=== PATIENT | female | born 1955 | race Caucasian/White ===

== ENCOUNTER 2016-06-25 12:57 | Emergency (ER) | payer OTHER ==
[2016-06-25 13:06] VITALS: RESP 18
[2016-06-25 14:16] LABS: % IMMATURE GRANULYOCYTES 0.4 % (0.0-1.1); ABSOLUTE IMMATURE GRANULOCYTES 0.04 10^3/uL (0.00-0.10); ADD DIFF? NO; ADD MORPH? YES; ADD SCAN? NO; ATYPICAL LYMPHOCYTE FLAG 10 (0-99); FRAGMENT RBC FLAG 40 (0-99); HEMATOCRIT 38.7 % (38.0-47.0); HEMOGLOBIN 11.8 g/dL (12.6-16.3); LEFT SHIFT FLG 0 (0-99); LIPEMIA HEMOLYSIS FLAG 80 (0-99); MEAN CELL HEMOGLOBIN 22.5 pg (27.9-34.1); MEAN CELL HEMOGLOBIN CONCENTR. 30.5 g/dL (32.4-36.7); MEAN CELL VOLUME 73.9 fL (81.5-99.8); MEAN PLATELET VOLUME 10.9 fL (8.7-11.7); PLATELET CLUMPS FLAG 0 (0-99); PLATELET COUNT 547 10^3/uL (150-400); RED BLOOD CELL COUNT 5.24 10^6/uL (4.18-5.33)
[2016-06-25 14:24] LABS: RED CELL DISTRIBUTION WIDTH 20.6 % (11.5-15.2)
[2016-06-25 14:44] LABS: ANION GAP 14 mEq/L (8-16); CALCIUM 9.5 mg/dL (8.5-10.4); CARBON DIOXIDE 22 mEq/l (22-31); CHLORIDE 104 mEq/L (97-110); CREATININE 0.7 mg/dL (0.6-1.0); GLOMERULAR FILTRATION RATE > 60; GLUCOSE 93 mg/dL (70-100); POTASSIUM 4.2 mEq/L (3.5-5.2); SODIUM 140 mEq/L (134-144)
[2016-06-25 14:50] LABS: PLATELET ESTIMATE INCREASED (ADEQ)
[2016-06-25 14:51] LABS: HYPOCHROMIA 2+; MICROCYTES 2+
--- NOTE | 2016-06-25 14:51 | EDPHY ---
H & P Stated Complaint: anemia hgb 9.6 hct 32.5 abd cramping Time Seen by Provider: 06/25/16 14:00 HPI/ROS: Chief Complaint: Weakness, anemia HPI: 61-year-old woman who is presenting complaining of concerns about anemia and fatigue. Patient states that she has been suffering from shingles for the last couple weeks after having oral surgery and dental implants performed. Patient states that she developed shingles after the surgery. She has gone through a course of antivirals for this and does seem to be improving. She also states that because of her recent oral surgery for the last several weeks she has not been eating or drinking food or fluids normally. She has had some generalized weakness and fatigue. She is has a history of a urine half ago and was noted to have anemia and had a abdominal bleed prior to having a colonoscopy as she is concerned that she might be having bleeding now. Patient presented to her primary care physician last week and had blood work done was noted to have a hemoglobin of 9.6. She spoke with her primary care physician's office today and was told to present to the emergency department for further evaluation. She did have a stool culture test done at that time which was negative. She denies any melena or hematochezia. No fevers or chills. No nausea or vomiting. No falls or syncope. No chest pain or shortness of breath. ROS: 10 point Review of Systems is negative except as noted in the HPI. PMH: Hypothyroidism Medications: Synthroid Allergies: No known drug allergies Social History: No smoking, no alcohol, no recreational drug use Family History: non-contributory Physical Exam: Gen: Awake, Alert, No Distress HEENT: healing shingles rash on the right face, eyes normal Nose: no rhinorrhea Eyes: PERRLA, EOMI Mouth: Moist mucosa Neck: Supple, no JVD Chest: nontender, lungs clear to auscultation Heart: S1, S2 normal, no murmur Abd: Soft, non-tender, no guarding Back: no CVA tenderness, no midline tenderness Ext: no edema, non-tender Skin: no rash Neuro: CN II-XII intact, Sensation grossly intact, Strength 5/5 in bilateral upper and lower extremities - Personal History Current Tetanus/Diphtheria Vaccine: No Tetanus Vaccine Date: 5 YEARS HOOP BENDER TANK - Medical/Surgical History Hx Asthma: No Hx Chronic Respiratory Disease: No Hx Diabetes: No Hx Cardiac Disease: No Hx Renal Disease: No Hx Cirrhosis: No Hx Alcoholism: No Hx HIV/AIDS: No Hx Splenectomy or Spleen Trauma: No Other PMH: VAGINAL HERPES, BREAST IMPLANTS, DENTAL SURGERY, TMJ,COLON SURGERY, CHRONIC PAIN, SBO, MIGRAINES, FIBRYOMALGIA, VERTIGO, ARTHRITIS NECK, AND LEFT KNEE, SIATIC NERVE PAIN, CLUSTER HEADACHES - Social History Smoking Status: Never smoked Constitutional: Initial Vital Signs Temperature (C) 37 C 06/25/16 13:01 Heart Rate 99 06/25/16 13:01 Respiratory Rate 18 06/25/16 13:01 Blood Pressure 149/101 H 06/25/16 13:01 O2 Sat (%) 96 06/25/16 13:01 O2 Delivery Mode Room Air Allergies/Adverse Reactions: No Known Allergies Allergy (Verified 06/25/16 12:59) Home Medications: Medication Instructions Recorded FLUoxetine [Prozac 20 MG (*)] 40 mg PO DAILY 02/26/13 Topiramate [Topamax] 45 mg PO BID 02/26/13 Azelastine [Astelin] 2 sprays EACHNARE BID 09/16/14 Fluticasone Nasal [Flonase Nasal 2 sprays EACHNARE BID 09/16/14 [place]] SUMAtriptan [Imitrex Sc Injection] 6 mg SC BID PRN 09/16/14 Tizanidine HCl [Zanaflex] 4 mg PO QID 09/16/14 Promethazine HCl [Phenergan 12.5mg 12.5 mg [place] Q6 PRN 01/21/15 supp (*)] Temazepam [Restoril 15 MG (*)] 15 - 30 mg PO HS PRN 01/21/15 clonazePAM [klonoPIN (*)] 1 mg PO BID 01/21/15 Acidophilus 08/08/15 Afrin Nasal [place] 08/08/15 [employer] Saline Nasal Gel [place] 08/08/15 [facility] 08/08/15 DILAUDID 08/08/15 GAS-X 08/08/15 LIBRIUM 08/08/15 Meclizine HCl 08/08/15 Modafinil 08/08/15 Percocet 5/325 (RX) 08/08/15 Potassium 08/08/15 Senna 08/08/15 Valtrex 08/08/15 ZYRTEC 08/08/15 Zantac 08/08/15 Medical Decision Making ED Course/Re-evaluation: 61-year-old presenting with fatigue after not eating for the last couple of weeks due to oral surgery with concerns of anemia. Her H&H are normal here. I suspect her low counselor last week or secondary to lab error. She is otherwise very well appearing with normal vital signs. Will discharge with follow-up with primary care physician for further evaluation. - Data Points Laboratory Results: Laboratory Results 06/25/16 14:06 06/25/16 14:06 06/25/16 06/25/16 14:06 14:06 WBC 9.63 10^3/uL H 10^3/uL (3.80-9.50) RBC 5.24 10^6/uL 10^6/uL (4.18-5.33) Hgb 11.8 g/dL L g/dL (12.6-16.3) Hct 38.7 % % (38.0-47.0) MCV 73.9 fL L fL (81.5-99.8) MCH 22.5 pg L pg (27.9-34.1) MCHC 30.5 g/dL L g/dL (32.4-36.7) RDW 20.6 % H % (11.5-15.2) Plt Count 547 10^3/uL H 10^3/uL (150-400) MPV 10.9 fL fL (8.7-11.7) Neut % (Auto) 60.5 % % (39.3-74.2) Lymph % (Auto) 27.4 % % (15.0-45.0) [place] % (Auto) 7.3 % % (4.5-13.0) Eos % (Auto) 3.4 % % (0.6-7.6) Baso % (Auto) 1.0 % % (0.3-1.7) Nucleat RBC Rel Count 0.0 % % (0.0-0.2) Absolute Neuts (auto) 5.82 10^3/uL 10^3/uL (1.70-6.50) Absolute Lymphs (auto) 2.64 10^3/uL 10^3/uL (1.00-3.00) Absolute Monos (auto) 0.70 10^3/uL 10^3/uL (0.30-0.80) Absolute Eos (auto) 0.33 10^3/uL 10^3/uL (0.03-0.40) Absolute Basos (auto) 0.10 10^3/uL 10^3/uL (0.02-0.10) Absolute Nucleated RBC 0.00 10^3/uL 10^3/uL (0-0.01) Immature Gran % 0.4 % % (0.0-1.1) Immature Gran # 0.04 10^3/uL 10^3/uL (0.00-0.10) Platelet Estimate Pending Sodium 140 mEq/L mEq/L (134-144) Potassium 4.2 mEq/L mEq/L (3.5-5.2) Chloride 104 mEq/L mEq/L (97-110) Carbon Dioxide 22 mEq/l mEq/l (22-31) Anion Gap 14 mEq/L mEq/L (8-16) BUN 29 mg/dL H mg/dL (7-23) Creatinine 0.7 mg/dL mg/dL (0.6-1.0) Estimated GFR > 60 Glucose 93 mg/dL mg/dL (70-100) Calcium 9.5 mg/dL mg/dL (8.5-10.4) Departure - Departure Disposition: Home, Routine, Self-Care Clinical Impression: Shingles, Fatigue Condition: Good Instructions: Fatigue (ED) Additional Instructions: Follow up with primary care physician in about a week for re-evaluation. Referrals: Quinn Hooper [Primary Care Provider] - As per Instructions
[2016-06-25 14:52] LABS: POLYCHROMASIA 1+
[2016-06-25 15:06] VITALS: BP 123/97; PULSE 83; TEMP 97.9; O2SAT 93
== END 2016-06-25 15:06 | disposition home or self-care (01) ==
DX: R53.83 Other fatigue (principal); B02.9 Zoster without complications

== ENCOUNTER 2016-10-21 10:09 | Emergency (ER) | payer OTHER ==
[2016-10-21 10:21] VITALS: TEMP 98.2
[2016-10-21 11:26] LABS: % IMMATURE GRANULYOCYTES 0.5 % (0.0-1.1); ABSOLUTE IMMATURE GRANULOCYTES 0.03 10^3/uL (0.00-0.10); ADD DIFF? NO; ADD MORPH? NO; ADD SCAN? NO; ATYPICAL LYMPHOCYTE FLAG 0 (0-99); FRAGMENT RBC FLAG 20 (0-99); HEMATOCRIT 36.9 % (38.0-47.0); HEMOGLOBIN 11.5 g/dL (12.6-16.3); LEFT SHIFT FLG 0 (0-99); LIPEMIA HEMOLYSIS FLAG 80 (0-99); MEAN CELL HEMOGLOBIN 22.1 pg (27.9-34.1); MEAN CELL HEMOGLOBIN CONCENTR. 31.2 g/dL (32.4-36.7); MEAN CELL VOLUME 70.8 fL (81.5-99.8); MEAN PLATELET VOLUME 10.7 fL (8.7-11.7); PLATELET CLUMPS FLAG 0 (0-99); PLATELET COUNT 359 10^3/uL (150-400); RED BLOOD CELL COUNT 5.21 10^6/uL (4.18-5.33)
--- NOTE | 2016-10-21 11:30 | EDPHY ---
HPI/HX/ROS/PE/MDM Narrative: CHIEF COMPLAINT: Abdominal pain HISTORY OF PRESENT ILLNESS: The patient is a 61 y/o female arriving with her family member complaining of abdominal pain and a RLQ lump onset last night. She has an extensive medical history that includes multiple abdominal surgeries , bowel obstructions, chronic pain, and a spontaneous retroperitoneal bleed requiring surgery in 2014 that presented with similar symptoms to today. On Friday, she slipped and fell out of bed striking her right arm, but does not think she injured anything else. Later she developed a RLQ lump that resolved after a bowel movement. Around midnight she developed abdominal cramping that has been persistent and is worse in her RLQ and now radiating through to her right lower back. She was unable to pass gas until later today when she had an "orangey-dark" diarrheal bowel movement. Deep breathing aggravates her pain. She has associated chills, but no fever, chest pain, shortness of breath, palpitations, vomiting, diarrhea, urinary complaints, headache, lightheadedness. REVIEW OF SYSTEMS: Aside from elements discussed in the HPI, a comprehensive 10-point review of systems was reviewed and is negative. Numbness in hand for last year related to neck pain. PAST MEDICAL HISTORY: Spontaneous retroperitoneal bleed 12/23/14, sepsis, Cluster headaches, chronic neck pain, opioid dependency, trigeminal neuralgia, fibromyalgia, depression, TMJ, migraines, hyperparathyroidism, vertigo, chronic abdominal pain PAST SURGICAL HISTORY: Sigmoid colectomy secondary to rectal prolapse, total hysterectomy, breast augmentation, bilateral knee repairs, cholecystectomy, bladder suspension. SOCIAL HISTORY: at bedside. Disabled. Lives in [place]. Dr. Fuentes prescribes her Gabapentin. Prior medical records reviewed including admission 12/23/2014 for similar symptoms. VITAL SIGNS: Reviewed by me GENERAL: Thin, dehydrated, appears uncomfortable, in no respiratory distress. HEENT: Atraumatic. Eyes: No icterus, no injection. Mouth: very dry mucous membranes. No erythema or lesions. Neck: supple with no adenopathy. LUNGS: Clear to auscultation bilaterally, no wheezes, rhonchi or rales. CARDIAC: Regular rate and rhythm, no rubs, murmurs or gallops. ABDOMEN: Soft, low RLQ tenderness, no swelling, no hernia, no guarding, no rebound, nondistended, bowel sounds normal. Large well-healed midline abdominal incision and horizontal lower abdominal incision. RECTAL: Normal inspection. Good tone. No stool, melena, or reema blood on glove BACK: No CVA tenderness. EXTREMITIES: No trauma. No edema. Range of motion is normal throughout. NEURO: Alert and oriented, grossly nonfocal. SKIN: Warm and dry, no rash. PSYCHIATRIC: Normal mentation, no agitation. Portions of this note were transcribed by a caregivers non medical. I personally performed a history, physical exam, medical decision making, and confirmed accuracy of information the transcribed note. ED Course: This is a 61 y/o female with significant history of chronic pain and abdominal surgeries who presents with a 1-day history of RLQ abdominal pain. She has mild RLQ tenderness on exam, but her abdomen is flat and soft. Plan for UA, labs, CT with IV contrast, and symptom management. 0.5mg IV Dilaudid, 4mg IV Zofran, and 1L IV NS administered. CT shows ileitis, bladder wall thickening, and normal appendix. Reassessed patient and discussed these findings. Her symptoms have improved and her abdomen remains soft. I've recommended following up with a GI and urologist in the next week. Return precautions discussed. She is comfortable with this plan. patient was reassured regarding CT findings, especially lack of SBO or hernia. Ct indicates potential scarring vs pneumonia. Patient with no respiratory complaints, no cough, hypoxia, chest pain or shortness of breath. MDM: After obtaining the patients history and performing an examination, differential diagnosis considered included but was not limited to appendicitis, Small bowel obstruction, volvulus, gi hemorrhage, retroperitoneal bleeding, hernia, incarcerated hernia, constipation, pancreatitis, kidney stones, urinary tract infections and other causes. - Data Points Imaging Results: Impression: 1. Bowel wall thickening and adjacent inflammatory change in the distal ileum, suggesting ileitis. No definite appendicitis. 2. Status post cholecystectomy. Common bile duct measures 10 mm, which can be seen status post cholecystectomy. 3. Atelectasis and scarring and possible pneumonia in the right middle lobe and anterior right lower lobe. 4. Bladder wall thickening. Correlate to possible cystitis to exclude any further need evaluated with cystoscopy. 5. Other chronic findings as above. Results called and discussed with Dr. Lianne Ash, on October 21, 2016 at 1327 hours. Imaging: Discussed imaging studies w/ machine scallop cutter Radiologist, I viewed and interpreted images myself Laboratory Results: Laboratory Results 10/21/16 11:08 10/21/16 11:08 Medications Given: Discontinued Medications Dicyclomine HCl (Bentyl) 20 mg PO EDNOW ONE Stop: 10/21/16 14:29 Last Admin: 10/21/16 14:47 Dose: 20 mg Hydromorphone HCl (Dilaudid) 0.5 mg IVP EDNOW ONE Stop: 10/21/16 11:52 Last Admin: 10/21/16 12:03 Dose: 0.5 mg Hydromorphone HCl (Dilaudid) 0.5 mg IVP EDNOW ONE Stop: 10/21/16 13:32 Last Admin: 10/21/16 13:42 Dose: 0.5 mg Sodium Chloride (Ns) 1,000 mls @ 0 mls/hr IV EDNOW ONE; Wide Open PRN Reason: Protocol Stop: 10/21/16 11:52 Last Admin: 10/21/16 12:02 Dose: 1,000 mls Ondansetron HCl (Zofran) 4 mg IVP EDNOW ONE Stop: 10/21/16 11:57 Last Admin: 10/21/16 12:03 Dose: 4 mg Phenazopyridine HCl (Pyridium) 200 mg PO EDNOW ONE Stop: 10/21/16 14:29 Last Admin: 10/21/16 14:47 Dose: 200 mg General Time Seen by Provider: 10/21/16 11:19 Initial Vital Signs: Initial Vital Signs Temperature (C) 36.8 C 10/21/16 10:19 Heart Rate 94 10/21/16 10:19 Respiratory Rate 22 H 10/21/16 10:19 Blood Pressure 163/122 H 10/21/16 10:19 O2 Sat (%) 96 10/21/16 10:19 O2 Delivery Mode Room Air Allergies/Adverse Reactions: No Known Allergies Allergy (Verified 10/21/16 10:18) Home Medications: Medication Instructions Recorded FLUoxetine [Prozac 20 MG (*)] 40 mg PO DAILY 02/26/13 Topiramate [Topamax] 45 mg PO BID 02/26/13 Azelastine [Astelin] 2 sprays EACHNARE BID 09/16/14 Fluticasone Nasal [Flonase Nasal 2 sprays EACHNARE BID 09/16/14 [place]] SUMAtriptan [Imitrex Sc Injection] 6 mg SC BID PRN 09/16/14 Tizanidine HCl [Zanaflex] 4 mg PO QID 09/16/14 Promethazine HCl [Phenergan 12.5mg 12.5 mg [place] Q6 PRN 01/21/15 supp (*)] Temazepam [Restoril 15 MG (*)] 15 - 30 mg PO HS PRN 01/21/15 clonazePAM [klonoPIN (*)] 1 mg PO BID 01/21/15 Acidophilus 08/08/15 Afrin Nasal [place] 08/08/15 [place] Saline Nasal Gel [place] 08/08/15 [facility] 08/08/15 DILAUDID 08/08/15 GAS-X 08/08/15 LIBRIUM 08/08/15 Meclizine HCl 08/08/15 Modafinil 08/08/15 Percocet 5/325 (RX) 08/08/15 Potassium 08/08/15 Senna 08/08/15 Valtrex 08/08/15 ZYRTEC 08/08/15 Zantac 08/08/15 AMOXICILLIN 10/21/16 Dicyclomine [Bentyl 20 MG (*)] 20 mg PO QID PRN #20 tab 10/21/16 GABAPENTIN 10/21/16 Phenazopyridine HCl [Pyridium] 200 mg PO TID PRN #9 tab 10/21/16 Departure - Departure Disposition: Home, Routine, Self-Care Clinical Impression: Ileitis, Bladder wall thickening Abdominal pain Qualifiers: Abdominal location: right lower quadrant Qualified Code(s): R10.31 - Right lower quadrant pain Condition: Good Instructions: Chronic Abdominal Pain (ED) Additional Instructions: 1. Follow up with your GI doctor this week to discuss management of your ileitis. You've been referred to Dr. Raju. Ackerman to take Bentyl as needed for crampy abdominal pain. 2. Follow up with a urologist this week regarding your bladder wall thickening. You've been referred to Dr. Anderson. Ackerman to take Pyridium as needed for urinary discomfort. 3. Return to the ED for worsening of condition, increased pain, fever, chills, vomiting, or other concerns. Please drink plenty of fluids and get plenty of rest.. Referrals: Quinn Hooper [Primary Care Provider] - As per Instructions Prescriptions: Dicyclomine [Bentyl 20 MG (*)] 20 mg PO QID PRN #20 tab PRN Reason: crampy abdominal pain Phenazopyridine HCl [Pyridium] 200 mg PO TID PRN #9 tab PRN Reason: bladder spasm Report Scribed for: Lianne Ash Report Scribed by: Mai Mccoy Date of Report: 10/21/16 Time of Report: 11:52
[2016-10-21 11:40] LABS: ANION GAP 13 mEq/L (8-16); CALCIUM 8.9 mg/dL (8.5-10.4); CARBON DIOXIDE 22 mEq/l (22-31); CHLORIDE 106 mEq/L (97-110); CREATININE 0.6 mg/dL (0.6-1.0); GLOMERULAR FILTRATION RATE > 60; GLUCOSE 109 mg/dL (70-100); POTASSIUM 4.1 mEq/L (3.5-5.2); SODIUM 141 mEq/L (134-144)
[2016-10-21] MEDS ORDERED: NS 1,000 ML IV ONE (11:51)
[2016-10-21] MEDS ORDERED: HYDROmorphONE/DILAUDID 1 MG/ML SYR IVP ONE ×2 (11:51→13:31)
[2016-10-21] MEDS ORDERED: ONDANSETRON 4 MG/2 ML VIAL IVP ONE (11:56)
[2016-10-21 12:35] LABS: ALBUMIN 3.8 g/dL (3.5-5.0); BILIRUBIN,TOTAL 0.4 mg/dL (0.1-1.4); BILIRUBIN-CONJUGATED 0.2 mg/dL (0.0-0.5); BILIRUBIN-UNCONJUGATED 0.2 mg/dL (0.0-1.1); TOTAL PROTEIN 6.8 g/dL (6.3-8.2)
[2016-10-21] MEDS ORDERED: IOPAMIDOL (ISOVUE-300) 100 ML BTL ONE (12:35)
[2016-10-21 13:06] VITALS: RESP 16
[2016-10-21 13:11] LABS: COLOR YELLOW; LEUKOCYTE ESTERASE,URINE NEGATIVE (NEGATIVE); NITRITE,URINE NEGATIVE (NEGATIVE)
[2016-10-21 13:20] LABS: RBC,URINE NONE SEEN /hpf (0-3)
[2016-10-21] MEDS ORDERED: DICYCLOMINE 10 MG CAP PO ONE (14:28)
[2016-10-21] MEDS ORDERED: PHENAZOPYRIDINE HCL 200 MG TAB PO ONE (14:28)
[2016-10-21 14:56] VITALS: BP 132/80; PULSE 85; O2SAT 96
== END 2016-10-21 14:56 | disposition home or self-care (01) ==
DX: K52.9 Noninfective gastroenteritis and colitis, unspecified (principal); N32.89 Other specified disorders of bladder; E86.9 Volume depletion, unspecified; Z90.49 Acquired absence of other specified parts of digestive tract; Z90.710 Acquired absence of both cervix and uterus
CPT/HCPCS: 96374; J1170; J2405; Q9967

== ENCOUNTER 2016-12-11 10:53 | Day surgery (SDC) | payer OTHER ==
[2016-12-11] MEDS ORDERED: LR 1,000 ML IV ONE (11:19)
[2016-12-11] MEDS ORDERED: LIDOCAINE 1% 2 ML INJ ID PRN (11:19)
[2016-12-11 11:41] LABS: % IMMATURE GRANULYOCYTES 0.2 % (0.0-1.1); ABSOLUTE IMMATURE GRANULOCYTES 0.01 10^3/uL (0.00-0.10); ADD DIFF? NO; ADD MORPH? NO; ADD SCAN? NO; ATYPICAL LYMPHOCYTE FLAG 20 (0-99); FRAGMENT RBC FLAG 20 (0-99); HEMATOCRIT 31.9 % (38.0-47.0); HEMOGLOBIN 9.5 g/dL (12.6-16.3); LEFT SHIFT FLG 0 (0-99); LIPEMIA HEMOLYSIS FLAG 70 (0-99); MEAN CELL HEMOGLOBIN 21.3 pg (27.9-34.1); MEAN CELL HEMOGLOBIN CONCENTR. 29.8 g/dL (32.4-36.7); MEAN CELL VOLUME 71.4 fL (81.5-99.8); MEAN PLATELET VOLUME 10.6 fL (8.7-11.7); PLATELET CLUMPS FLAG 10 (0-99); PLATELET COUNT 337 10^3/uL (150-400); RED BLOOD CELL COUNT 4.47 10^6/uL (4.18-5.33); RED CELL DISTRIBUTION WIDTH 18.4 % (11.5-15.2)
--- NOTE | 2016-12-11 12:01 | PDANEPAE ---
ANE Past Medical History - Cardiovascular History Hx Hypertension: No Hx Arrhythmias: No Hx Chest Pain: No Hx Coronary Artery / Peripheral Vascular Disease: No Hx CHF / Valvular Disease: No Hx Palpitations: No - Pulmonary History Hx Oxygen in Use at Home: No Hx Sleep Apnea: No Sleep Apnea Screening Result - Last Documented: Negative - Neurologic History Hx Cerebrovascular Accident: No Hx Seizures: No Hx Dementia: No - Endocrine History Hx Diabetes: No Obesity: no - Renal History Hx Renal Disorders: Yes Renal History Comment: uti's - Liver History Hx Hepatic Disorders: No - Neurological & Psychiatric Hx Hx Neurological and Psychiatric Disorders: Yes Neurological / Psychiatric History Comment: numbness to right hand, depression/ anxiety. botox for BISWAS 09/23 - Cancer History Hx Cancer: No - Congenital Disorder History Hx Congenital Disorders: No - GI History Hx Gastrointestinal Disorders: Yes Gastrointestinal History Comment: reflux, gerd, abd pain. - Other Health History Other Health History: anemia. very dry - Chronic Pain History Chronic Pain: Yes (neck, jaw. BISWAS. arthris in back, knee.) - Surgical History Prior Surgeries: dental implants, bilat tmj titanium jaw implant. parathyroid 2016. ANE Review of Systems Review of Systems: - Exercise capacity METS (RN): 4 METS ANE Patient History - Allergies Allergies/Adverse Reactions: No Known Allergies Allergy (Verified 10/21/16 10:18) - Home Medications Home Medications: FLUoxetine [Prozac 20 MG (*)] 02/26/13 [Last Taken 08/08/15] Topiramate [Topamax] 02/26/13 [Last Taken 08/08/15] Azelastine [Astelin] 09/16/14 [Last Taken 08/07/15] Fluticasone Nasal [Flonase Nasal [place]] 09/16/14 [Last Taken 08/07/15] SUMAtriptan [Imitrex Sc Injection] 09/16/14 [Last Taken 08/05/15] Tizanidine HCl [Zanaflex] 09/16/14 [Last Taken 08/07/15] Promethazine HCl [Phenergan 12.5mg supp (*)] 01/21/15 [Last Taken 08/07/15] Temazepam [Restoril 15 MG (*)] 01/21/15 [Last Taken 08/07/15] clonazePAM [klonoPIN (*)] 11/14/15 [Last Taken 08/07/15] Acidophilus 08/08/15 [Last Taken 08/07/15] Afrin Nasal [place] 08/08/15 [Last Taken 08/08/15] [facility] 08/08/15 [Last Taken 08/07/15] DILAUDID 08/08/15 [Last Taken 08/07/15] GAS-X 08/08/15 [Last Taken 08/06/15] LIBRIUM 08/08/15 [Last Taken 08/07/15] Meclizine HCl 08/08/15 [Last Taken 08/07/15] Modafinil 08/08/15 [Last Taken 08/07/15] Percocet 5/325 (RX) 08/08/15 [Last Taken 08/08/15] Potassium 08/08/15 [Last Taken 08/07/15] Senna 08/08/15 [Last Taken 08/07/15] ZYRTEC 08/08/15 [Last Taken 08/08/15] Zantac 08/08/15 [Last Taken 08/08/15] Dicyclomine [Bentyl 20 MG (*)] 12/09/16 [Last Taken Unknown] - NPO status NPO Since - Liquids (Date): 12/10/16 NPO Since - Liquids (Time): 09:00 NPO Since - Solids (Date): 12/10/16 NPO Since - Solids (Time): 09:00 - Smoking Hx Smoking Status: Never smoked - Family Anes Hx Family Hx Anesthesia Complications: none ANE Labs/Vital Signs - Labs Result Diagrams: 12/11/16 11:37 - Vital Signs Height: 165.1 cm Weight: 54.431 kg ANE Physical Exam - Airway Neck exam: FROM Mallampati Score: Class 3 Mouth exam: small mouth opening - Pulmonary Pulmonary: no respiratory distress - Cardiovascular Cardiovascular: regular rate and rhythym - ASA Status ASA Status: II ANE Anesthesia Plan Anesthesia Plan: GA with mask
[2016-12-11] MEDS ORDERED: PROPOFOL/EMULSION 500 MG/50 ML BOTTLE IV ONE (12:06)
[2016-12-11] MEDS ORDERED: MIDAZOLAM 2 MG/2 ML VIAL IVP ONE (12:10)
--- NOTE | 2016-12-11 12:57 | GIREPORT ---
[facility] - Endoscopy Department Patient Name: Keila Duron Procedure Date: 12/11/2016 12:13 PM Patient Type: Outpatient Attending MD/ ER Physician: Jennifer Gil Procedure: Upper GI endoscopy Indications: Epigastric abdominal pain, Suspected upper gastrointestinal bleeding in patient with unexplained iron deficiency anemia Providers: Jozef Bear MD Medicines: Sedation Required Anesthesia Staff Assistance, IV general Complications: No immediate complications. Estimated blood loss: Minimal. Description of Procedure: After obtaining informed consent, the endoscope was passed under direct vision. Throughout the procedure, the patient's blood pressure, pulse, and oxygen saturations were monitored continuous ly. The Endoscope was introduced through the mouth, and advanced to the third part of duodenum. The upper GI endoscopy was accomplished without difficulty. The patient tolerated the procedure well. Findings: The examined esophagus was normal. Scattered mild inflammation characterized by adherent blood, congestion (edema), erythema, friab ility and granularity was found in the gastric antrum. Biopsies were taken with a cold forceps for histology. Estimated blood loss was minimal. The examined duodenum was normal. Biopsies for histology were taken with a cold forceps for evaluation of celiac disease. Estimated blood loss was minimal. The exam was otherwise without abnormality. Estimated Blood Loss: Estimated blood loss was minimal. Post Op Diagnosis: - Normal esophagus. - Gastritis. Biopsied. - Normal examined duodenum. Biopsied. - The examination was otherwise normal. Recommendation: - Await pathology results. - My office will call with the pathology result with 5-7 days. If you have not heard from my off ice by 12-14, do not assume the pathology is normal, please call [phone] to get the pathology r eults. - If duodenal biopsy doesn't reveal celiac sprue, consider capsule endoscopy - see colon report. - Perform a colonoscopy today. - Return to primary care physician as previously scheduled. - Continue present medications. - Thank you for allowing me to help in your patient's care. Do not hesitate to call with any questions. Attending Participation: I personally performed the entire procedure. Chema Haskins M.D Jozef Bear MD 12/11/2016 12:56:53 PM Number of Addenda: 0 Note Initiated On: 12/11/2016 12:13 PM [email or web address]
[2016-12-11] MEDS ORDERED: fentaNYL 100 MCG/2 ML INJ IVP PRN (13:02)
[2016-12-11] MEDS ORDERED: ONDANSETRON 4 MG/2 ML VIAL IVP PRN (13:02)
[2016-12-11] MEDS ORDERED: NALOXONE HCL 0.4 MG/ML INJ IVP PRN (13:02)
--- NOTE | 2016-12-11 13:02 | GIREPORT ---
[facility] - Endoscopy Department Patient Name: Keila Duron Procedure Date: 12/11/2016 12:27 PM Patient Type: Outpatient Attending MD/ ER Physician: Jennifer Gil Procedure: Colonoscopy Indications: Abdominal pain in the right lower quadrant, Unexplained iron deficiency anemia, Abnormal CT of the GI tract Providers: Jozef Bear MD Medicines: Sedation Required Anesthesia Staff Assistance, IV general Complications: No immediate complications. Estimated blood loss: Minimal. Description of Procedure: After obtaining informed consent, the scope was passed under direct vision. Throughout the proce dure, the patient's blood pressure, pulse, and oxygen saturations were monitored continuously. The Colonoscope was introduced through the anus and advanced to the terminal ileum, with identificat ion of the appendiceal orifice and IC valve. The colonoscopy was performed without difficulty. The patient tolerated the procedure well. The quality of the bowel preparation was fair. Findings: The digital rectal exam was normal. The terminal ileum appeared normal. Biopsies were taken with a cold forceps for histology. Estim ated blood loss was minimal. A diffuse area of mildly altered vascular and melanotic mucosa was found in the ascending colon. Biopsies were taken with a cold forceps for histology. Estimated blood loss was minimal. The exam was otherwise without abnormality. Estimated Blood Loss: Estimated blood loss was minimal. Post Op Diagnosis: - Preparation of the colon was fair. - The examined portion of the ileum was normal. Biopsied. I was unable to advance mnore then jordana barbra 10cm - 15 cm into the terminal ileium. It is possible the abnormlaity noted on CT scan is more proximal then I could reach. - Altered vascular and melanotic mucosa in the ascending colon. Biopsied. - The examination was otherwise normal. Recommendation: - Await pathology results. - My office will call with the pathology result with 5-7 days. If you have not heard from my off ice by 12-14, do not assume the pathology is normal, please call [phone] to get the pathology r eults. - To visualize the small bowel, perform video capsule endoscopy at appointment to be scheduled. Could also consider a different imaging study such as MRE. - Resume previous diet. - Patient has a contact number available for emergencies. The signs and symptoms of potential de layed complications were discussed with the patient. Return to normal activities tomorrow. Written discharge instructions were provided to the patient. - Continue present medications. - Return to referring physician as previously scheduled. - Thank you for allowing me to help in your patient's care. Do not hesitate to call with any questions. Attending Participation: I personally performed the entire procedure. Chema Haskins M.D Jozef Bear MD 12/11/2016 1:02:16 PM Number of Addenda: 0 Note Initiated On: 12/11/2016 12:27 PM Total Procedure Duration Time 0 hours 23 minutes 17 seconds [email or web address]
--- NOTE | 2016-12-11 13:02 | POSTANESTH ---
Post Anesthetic Evaluation Cardiovascular Status: Normal, Stable Respiratory Status: Normal, Stable Level of Consciousness/Mental Status: Can Participate in Eval Pain Control: Adequate, Prn Tx Ordered Nausea/Vomiting Control: Adequate, Prn Tx Ordered Complications Possibly Related to Anesthesia: None Noted
[2016-12-11] MEDS ORDERED: fentaNYL 100 MCG/2 ML INJ ONE (13:13)
[2016-12-11] MEDS ORDERED: ONDANSETRON 4 MG/2 ML VIAL ONE (13:13)
[2016-12-11 13:17] VITALS: PULSE 84
[2016-12-11 15:03] VITALS: BP 126/82; RESP 16; O2SAT 92
[2016-12-11 16:15] VITALS: TEMP 97.5
--- NOTE | 2016-12-11 16:45 | POSTOPPROG ---
Post Op Note Date of Operation: 12/11/16 Surgeon: Dinesh Bear Anesthesiologist: Kane Anesthesia: Other (Specify) (iv general) Pre-op Diagnosis: iron def anemia Post-op Diagnosis: mild gastritis, melanosis coli, nml TI Indication: iron def anemia, abnml ct scan Procedure: egd bx, colon bx Findings: gastritis, nml TI, melanosis Inf/Abcess present in the surg proc area at time of surgery?: No EBL: Minimal (few ml) Total fluids administered: 800 LR Complications: none immediate
== END 2016-12-11 15:05 | disposition home or self-care (01) ==
LOC: FSGY 10:53
PROVIDERS: ATTEND Internal Medicine Gastroenterology
PROC: 0DBK8ZX Excision of Ascending Colon, Via Natural or Artificial Opening Endoscopic, Diagnostic (ICD-10-PCS; principal; 2016-12-11 12:15)
PROC: 0DBB8ZX Excision of Ileum, Via Natural or Artificial Opening Endoscopic, Diagnostic (ICD-10-PCS; principal; 2016-12-11 12:15)
PROC: 0DB68ZX Excision of Stomach, Via Natural or Artificial Opening Endoscopic, Diagnostic (ICD-10-PCS; principal; 2016-12-11 12:15)
PROC: 0DB98ZX Excision of Duodenum, Via Natural or Artificial Opening Endoscopic, Diagnostic (ICD-10-PCS; principal; 2016-12-11 12:15)
DX: D50.0 Iron deficiency anemia secondary to blood loss (chronic) (principal); R94.5 Abnormal results of liver function studies; R10.31 Right lower quadrant pain; R10.13 Epigastric pain; K29.70 Gastritis, unspecified, without bleeding; K63.89 Other specified diseases of intestine; K59.00 Constipation, unspecified; R19.7 Diarrhea, unspecified; K21.9 Gastro-esophageal reflux disease without esophagitis
CPT/HCPCS: J2405; J2704; J3010

== ENCOUNTER → 2016-12-27 | Outpatient (CLI) | payer OTHER | LOC: FIMAGING 14:02 | PROVIDERS: ATTEND Internal Medicine Gastroenterology | DX: K31.89 Other diseases of stomach and duodenum (principal) ==

== ENCOUNTER 2017-01-14 15:29 | Inpatient (IN) | payer OTHER ==
[2017-01-14] MEDS ORDERED: NS 1,000 ML IV ONE (15:51)
[2017-01-14] MEDS ORDERED: ONDANSETRON 4 MG/2 ML VIAL IVP ONE ×2 (15:51→17:01)
--- NOTE | 2017-01-14 16:15 | EDPHY ---
H & P Time Seen by Provider: 01/14/17 15:37 HPI/ROS: HPI Abdominal pain, chest pain, bloody stool. 61-year-old female by private vehicle with her . This patient lives up in [place]. She was sent to the emergency department for evaluation by her lamp shade maker Dr. Harris of GI of the [facility]. He is concerned that she has Crohn's disease. She presents with complaint of diffuse abdominal pain which is crampy and burning in nature ongoing for a year but worse since October. She had a CT scan last October and her lamp shade maker feels that she likely has Crohn's disease based on this study. She also had an endoscopy and colonoscopy about a month ago. She also reports for at least the last month she has had bloody mucousy stool. Dr. Harris wants her admitted to the hospitalist service and here see your here as a consult. He tried to make her direct admit the hospitalist service requested she come through the emergency department 1st. Patient also reports that she is on her 2nd day of Levaquin prescribed to her by her primary care physician Dr. Cottrell for pneumonia. She is unsure she had a chest x-ray that was diagnostic of pneumonia. She does complain of chest tightness and aching described as mid substernal for the last 2 days. She has had nausea but no vomiting. Denies fever. ROS: Constitutional: No fever, no chills. No weakness. Eyes: No discharge. No changes in vision. ENT: No sore throat. No nasal congestion or rhinorrhea. Respiratory: No cough. No shortness of breath. Cardiac: As above, no palpitations. Gastrointestinal: As above. Genitourinary: No hematuria. No dysuria or increased frequency with urination. Musculoskeletal: No back pain. No neck pain. No myalgias or arthralgias. Skin: No rashes. Neurological: No headache. No focal weakness or altered sensation. Past medical history: Spontaneous retroperitoneal bleed December of 2014 with laparoscopy, chronic pain , cluster headaches, migraine headaches, opioid dependence, fibromyalgia, trigeminal neuralgia. Iron deficiency anemia. As above. Please see triage note for further details. Social history: Nonsmoker. Denies alcohol. is at bedside. Lives in [place]. Physical Exam: General Appearance: Alert, anxious. This patient is responding to questions appropriately and in full sentences. This patient appears well-hydrated and well-nourished. Eyes: Pupils equal and round no pallor or injection. No lid edema, erythema or injection. Respiratory: There are no retractions, lungs are clear to auscultation with good air movement bilaterally. Cardiovascular: Regular rate and rhythm. No murmur. Gastrointestinal: Large midline surgical scar well-healed. Abdomen is soft and without focal tenderness or significant tenderness on palpation throughout, no masses, bowel sounds normal. No focal tenderness at McBurney's point. No Shields sign. Neurological: Motor sensory function is grossly intact. Cranial nerves are normal. Gait is normal. Skin: Warm and dry, no rashes. Musculoskeletal: Neck is supple and nontender. Extremities are symmetrical. All joints range without pain or impingement. Psychiatric: No agitation. No depression. Database: EKG: EKG time is 4:47 p.m.; EKG shows a narrow complex normal sinus rhythm with a ventricular rate of 74. The DE, QRS, QT intervals are within normal limits. There are no ST-T wave changes indicative of ischemic or injury pattern. No evidence of right heart strain. Interpreted by me. Imaging: Chest x-ray PA and lateral; the cardiac mediastinal silhouette is unremarkable. No evidence of pneumothorax. Improving right middle lobe infiltrative process in comparison to prior study from December 27 of this year. No other acute cardiopulmonary disease process noted. Interpreted by me. Procedures: Emergency department course: IV placed. Vital signs reviewed. She is moderately hypertensive. Vital signs are otherwise normal. She is afebrile. She was started on IV normal saline with 500 cc to be given over the next hour. She was given 4 mg of IV Zofran for nausea. EKG obtained and reviewed by myself. 5:05 p.m., patient re-evaluated. Resting comfortably at this time. Vital signs reviewed and are normal. Results of emergency department workup discussed with her . She has been on Levaquin for the last 2 days for treatment of probable right middle lobe pneumonia. She did not take this medication this morning. She will be given 500 mg of Levaquin orally. Hospitalist paged for admission. 5:20 p.m., discussed case with hospitalist, Dr. Vázquez, patient accepted for admission to the hospitalist service. Gastroenterology will consult on further management after admission. Patient's remaining emergency department course under my care uneventful. She was admitted in stable condition. Differential Diagnosis: The differential diagnosis on this patient includes but is not limited to Crohn' s exacerbation, pneumonia. Acute coronary syndrome, pulmonary embolism, bowel obstruction, appendicitis, cholecystitis, volvulus, other acute surgical emergent condition unlikely. This represents a partial list of diagnoses considered. These considerations are based on history, physical exam, past history, reassessment and diagnostic testing. Smoking Status: Never smoked Constitutional: Initial Vital Signs Temperature (C) 36.8 C 01/14/17 15:39 Heart Rate 88 01/14/17 15:39 Respiratory Rate 18 01/14/17 15:39 Blood Pressure 159/103 H 01/14/17 15:39 O2 Sat (%) 97 01/14/17 15:39 O2 Delivery Mode Room Air Allergies/Adverse Reactions: No Known Allergies Allergy (Verified 01/14/17 15:34) Home Medications: Medication Instructions Recorded FLUoxetine [Prozac 20 MG (*)] 02/26/13 Topiramate [Topamax] 02/26/13 Azelastine [Astelin] 09/16/14 Fluticasone Nasal [Flonase Nasal 09/16/14 [place]] SUMAtriptan [Imitrex Sc Injection] 09/16/14 Tizanidine HCl [Zanaflex] 09/16/14 Promethazine HCl [Phenergan 12.5mg 01/21/15 supp (*)] Temazepam [Restoril 15 MG (*)] 01/21/15 clonazePAM [klonoPIN (*)] 01/21/15 Acidophilus 08/08/15 Afrin Nasal [place] 08/08/[address] [facility] 08/08/15 DILAUDID 08/08/15 GAS-X 08/08/15 LIBRIUM 08/08/15 Meclizine HCl 08/08/15 Modafinil 08/08/15 Potassium 08/08/15 Senna 08/08/15 ZYRTEC 08/08/15 Zantac 08/08/15 Dicyclomine [Bentyl 20 MG (*)] 12/09/16 Apriso 0.375 gm 01/14/17 [place] 01/14/17 Levofloxacin 01/14/17 Medical Decision Making - Diagnostics Imaging Results: Imaging Impressions Chest X-Ray 01/14/17 16:07 Impression: Stable medial right basilar opacities likely related to atelectasis /bronchiectasis seen on CT. - Data Points Laboratory Results: Laboratory Results 01/14/17 16:10 01/14/17 16:10 01/14/17 01/14/17 01/14/17 16:10 16:10 16:10 WBC 6.34 10^3/uL 10^3/uL (3.80-9.50) RBC 4.82 10^6/uL 10^6/uL (4.18-5.33) Hgb 10.2 g/dL L g/dL (12.6-16.3) Hct 33.5 % L % (38.0-47.0) MCV 69.5 fL L fL (81.5-99.8) MCH 21.2 pg L pg (27.9-34.1) MCHC 30.4 g/dL L g/dL (32.4-36.7) RDW 18.7 % H % (11.5-15.2) Plt Count 319 10^3/uL 10^3/uL (150-400) MPV 10.4 fL fL (8.7-11.7) Neut % (Auto) 55.7 % % (39.3-74.2) Lymph % (Auto) 27.0 % % (15.0-45.0) [place] % (Auto) 11.2 % % (4.5-13.0) Eos % (Auto) 4.3 % % (0.6-7.6) Baso % (Auto) 1.3 % % (0.3-1.7) Nucleat RBC Rel Count 0.0 % % (0.0-0.2) Absolute Neuts (auto) 3.54 10^3/uL 10^3/uL (1.70-6.50) Absolute Lymphs (auto) 1.71 10^3/uL 10^3/uL (1.00-3.00) Absolute Monos (auto) 0.71 10^3/uL 10^3/uL (0.30-0.80) Absolute Eos (auto) 0.27 10^3/uL 10^3/uL (0.03-0.40) Absolute Basos (auto) 0.08 10^3/uL 10^3/uL (0.02-0.10) Absolute Nucleated RBC 0.00 10^3/uL 10^3/uL (0-0.01) Immature Gran % 0.5 % % (0.0-1.1) Immature Gran # 0.03 10^3/uL 10^3/uL (0.00-0.10) Platelet Estimate ADEQUATE (ADEQ) Hypochromasia 2+ H Microcytic Cells 2+ H Smear Review By Pending PT 14.6 SEC SEC (12.0-15.0) INR 1.15 (0.83-1.16) APTT 25.8 SEC SEC (23.0-38.0) Sodium 141 mEq/L mEq/L (134-144) Potassium 4.0 mEq/L mEq/L (3.5-5.2) Chloride 102 mEq/L mEq/L (97-110) Carbon Dioxide 26 mEq/l mEq/l (22-31) Anion Gap 13 mEq/L mEq/L (8-16) BUN 29 mg/dL H mg/dL (7-23) Creatinine 0.8 mg/dL mg/dL (0.6-1.0) Estimated GFR > 60 Glucose 94 mg/dL mg/dL (70-100) Calcium 8.9 mg/dL mg/dL (8.5-10.4) Total Bilirubin 0.2 mg/dL mg/dL (0.1-1.4) Conjugated Bilirubin 0.1 mg/dL mg/dL (0.0-0.5) Unconjugated Bilirubin 0.1 mg/dL mg/dL (0.0-1.1) AST 21 IU/L IU/L (14-46) ALT 26 IU/L IU/L (9-52) Alkaline Phosphatase 63 IU/L IU/L (38-126) Troponin I < 0.012 ng/mL ng/mL (0.000-0.034) Total Protein 6.9 g/dL g/dL (6.3-8.2) Albumin 3.8 g/dL g/dL (3.5-5.0) Lipase 98 IU/L IU/L (23-300) Medications Given: Discontinued Medications Sodium Chloride (Ns) 1,000 mls @ 0 mls/hr IV EDNOW ONE; Wide Open PRN Reason: Protocol Stop: 01/14/17 15:52 Last Admin: 01/14/17 16:25 Dose: 1,000 mls Levofloxacin (Levaquin) 500 mg PO EDNOW ONE PRN Reason: Protocol Stop: 01/14/17 17:08 Last Admin: 01/14/17 17:21 Dose: 500 mg Ondansetron HCl (Zofran) 4 mg IVP EDNOW ONE Stop: 01/14/17 15:52 Last Admin: 01/14/17 16:25 Dose: Not Given Ondansetron HCl (Zofran) 4 mg IVP EDNOW ONE Stop: 01/14/17 17:02 Last Admin: 01/14/17 17:03 Dose: 4 mg Departure - Departure Disposition: [facility] Acute Clinical Impression: Abdominal pain, Rectal bleeding, Chest discomfort, Possible pneumonia
[2017-01-14 16:24] LABS: % IMMATURE GRANULYOCYTES 0.5 % (0.0-1.1); ABSOLUTE IMMATURE GRANULOCYTES 0.03 10^3/uL (0.00-0.10); ADD DIFF? NO; ADD MORPH? YES; ADD SCAN? NO; ATYPICAL LYMPHOCYTE FLAG 0 (0-99); FRAGMENT RBC FLAG 40 (0-99); HEMATOCRIT 33.5 % (38.0-47.0); HEMOGLOBIN 10.2 g/dL (12.6-16.3); LEFT SHIFT FLG 0 (0-99); LIPEMIA HEMOLYSIS FLAG 80 (0-99); MEAN CELL HEMOGLOBIN 21.2 pg (27.9-34.1); MEAN CELL HEMOGLOBIN CONCENTR. 30.4 g/dL (32.4-36.7); MEAN PLATELET VOLUME 10.4 fL (8.7-11.7); PLATELET CLUMPS FLAG 0 (0-99); PLATELET COUNT 319 10^3/uL (150-400); RED BLOOD CELL COUNT 4.82 10^6/uL (4.18-5.33); RED CELL DISTRIBUTION WIDTH 18.7 % (11.5-15.2)
[2017-01-14 16:26] LABS: MEAN CELL VOLUME 69.5 fL (81.5-99.8)
[2017-01-14 16:40] LABS: APTT 25.8 SEC (23.0-38.0); INR 1.15 (0.83-1.16); PROTIME(PATIENT) 14.6 SEC (12.0-15.0)
[2017-01-14 16:45] LABS: ALANINE AMINOTRANSFERASE 26 IU/L (9-52); ALBUMIN 3.8 g/dL (3.5-5.0); ALKALINE PHOSPHATASE 63 IU/L (38-126); ANION GAP 13 mEq/L (8-16); ASPARTATE AMINOTRANSFERASE 21 IU/L (14-46); BILIRUBIN,TOTAL 0.2 mg/dL (0.1-1.4); BILIRUBIN-CONJUGATED 0.1 mg/dL (0.0-0.5); BILIRUBIN-UNCONJUGATED 0.1 mg/dL (0.0-1.1); CALCIUM 8.9 mg/dL (8.5-10.4); CARBON DIOXIDE 26 mEq/l (22-31); CHLORIDE 102 mEq/L (97-110); CREATININE 0.8 mg/dL (0.6-1.0); GLOMERULAR FILTRATION RATE > 60; GLUCOSE 94 mg/dL (70-100); SODIUM 141 mEq/L (134-144); TOTAL PROTEIN 6.9 g/dL (6.3-8.2)
--- NOTE | 2017-01-14 16:48 | CPEKG ---
Heart Rate: 74 RR Interval: 811 P-R Interval: 148 QRSD Interval: 70 QT Interval: 408 QTC Interval: 453 P [place]: 73 QRS [place]: 21 T Wave [place]: 51 EKG Severity - BORDERLINE ECG - EKG Impression: SINUS RHYTHM EKG Impression: PROBABLE LEFT ATRIAL ABNORMALITY Electronically Signed By: Sejal Martinez 15-Jan-2017 00:02:46
[2017-01-14 16:56] LABS: TROPONIN I < 0.012 ng/mL (0.000-0.034)
[2017-01-14 17:06] LABS: HYPOCHROMIA 2+; MICROCYTES 2+; PLATELET ESTIMATE ADEQUATE (ADEQ)
[2017-01-14] MEDS ORDERED: ONDANSETRON DISINTEGRATING 4 MG TAB PO PRN (17:25)
[2017-01-14] MEDS ORDERED: PROMETHAZINE HCL 25 MG/ML INJ IVP PRN (17:25)
[2017-01-14] MEDS ORDERED: ACETAMINOPHEN 500 MG TAB PO PRN (17:25)
[2017-01-14] MEDS ORDERED: PROMETHAZINE HCL 25 MG TAB PO PRN ×2 (17:25→18:55)
[2017-01-14] MEDS ORDERED: ONDANSETRON 4 MG/2 ML VIAL IVP PRN (17:25)
[2017-01-14] MEDS ORDERED: NS 1,000 ML IV SCH (17:30)
[2017-01-14] MEDS ORDERED: SIMETHICONE 80 MG TAB CHEW PO PRN (18:55)
[2017-01-14] MEDS ORDERED: MECLIZINE HCL 25 MG TAB PO PRN (18:55)
[2017-01-14] MEDS ORDERED: DICYCLOMINE 10 MG CAP PO PRN (18:55)
[2017-01-14] MEDS ORDERED: MODAFINIL 100 MG TAB PO PRN (18:55)
--- NOTE | 2017-01-14 19:03 | PDGENHP ---
History and Physical - Chief Complaint Acute on Chronic abdominal pain - History of Present Illness PCP: Dr. Cottrell Primary GI: Dr. Bear Primary Surg: Dr. Smith HPI: 61 yo F p/w acute on chronic abdominal pain located in the lower and right side of her abdomen, characterized as a full/bloated/cramping sensation w/ associated mucus/bloody output from her rectum and 4 days of relative constipation. Prior to that onset, she had loose BMs, stimulated by her daily senokot. During the past 4 days, she has been taking her senokot w/o any appreciable benefit. On the day of presentation, she has taken 3 tabs w/o relief. She otherwise has been taking all of her home pain/anxiety medications w /o any changes, and reports that mildly alleviate her symptoms. During this interval, she has seen her PCP, and described some additional lower chest discomfort. CXR reportedly revealed "pneumonia" in the RML, and she was started on levofloxacin, has taken two days of tx. She otherwise denies any pulmonary symptoms. History Information - Allergies/Home Medication List Allergies/Adverse Reactions: No Known Allergies Allergy (Verified 01/14/17 15:34) Home Medications: Azelastine HCl 2 mcg NS BID 01/14/17 [Last Taken 01/13/17] Budesonide [Entocort EC] 9 mg PO DAILY 01/14/17 [Last Taken 01/14/17] Cetirizine HCl/Pseudoephedrine [Zyrtec-D Tablet] 1 each PO Q12H 01/14/17 [Last Taken 01/14/17] Dicyclomine [Bentyl 10 MG (*)] 10 mg PO QID PRN 01/14/17 [Last Taken Unknown] Fluoxetine HCl [Prozac 40 mg] 40 mg PO DAILY 01/14/17 [Last Taken 01/14/17] Fluticasone Nasal [Flonase Nasal [place] (RX)] 2 sprays NASAL BID 01/14/17 [Last Taken 01/14/17] Gabapentin [Neurontin] 600 mg PO HS 01/14/17 [Last Taken 01/13/17] HYDROmorphone HCL [Dilaudid 4 mg (*)] 8 mg PO BID 01/14/17 [Last Taken 01/14/17 FIRST DOSE] Herbals/Supplements -Info Only 1 ea PO DAILY 01/14/17 [Last Taken Unknown] Lansoprazole 30 mg PO BID 01/14/17 [Last Taken 01/14/17] Meclizine HCl [Meclizine HCl 25 mg (RX,OTC)] 25 mg PO QID PRN 01/14/17 [Last Taken 01/14/17] Mesalamine [Apriso 0.375 gm] 1.5 gm PO DAILY 01/14/17 [Last Taken 01/14/17] Modafinil [Provigil 100 mg (*)] 200 mg PO BID PRN 01/14/17 [Last Taken 01/14/17] Oxymetazoline HCl [Afrin Nasal [place] (OTC)] 2 spray EACHNARE BID PRN 01/14/17 [ Last Taken Unknown] Potassium Chloride [Klor-Con 10] 10 meq PO BID 01/14/17 [Last Taken 01/14/17] Promethazine HCl [Phenergan 25mg (*)] 25 mg PO BID PRN 01/14/17 [Last Taken Unknown] Ranitidine HCl [Zantac] 300 mg PO HS 01/14/17 [Last Taken 01/13/17] SUMAtriptan [Imitrex Sc 6 MG Inj (RX)] 6 mg SQ Q1H PRN 01/14/17 [Last Taken 09/23 12 MG] Sennosides/Docusate Sodium [Senna-S Tablet] 1 each PO BID 01/14/17 [Last Taken 01/14/17] Simethicone [Gas Relief] 80 mg PO ACHS PRN 01/14/17 [Last Taken Unknown] Temazepam [Restoril 15 MG (*)] 15 mg PO HS 01/14/17 [Last Taken 01/13/17] Tizanidine HCl [Zanaflex] 4 - 8 mg PO QID PRN 01/14/17 [Last Taken 01/14/17] Topiramate [Topamax] 30 mg PO DAILY 01/14/17 [Last Taken 01/14/17] Topiramate [Topamax] 60 mg PO HS 01/14/17 [Last Taken 01/13/17] Valacyclovir HCl [Valtrex] 1,000 mg PO DAILY PRN 01/14/17 [Last Taken Unknown] chlordiazePOXIDE [Librium 5 mg (*)] 5 - 10 mg PO QID 01/14/17 [Last Taken ] levOFLOXACIN [levAQUIN (*)] 500 mg PO DAILY 01/14/17 [Last Taken 01/14/17] I have personally reviewed and updated: family history, medical history, social history, surgical history - Past Medical History fibromyalgia Additional medical history: Trigeminal neuralgia. Chronic headaches (Migraines , Clusters). Chronic abdominal pain w/ continuous opiate dependency. Anxiety w / chronic benzo dependency. Spontaneous Retroperitoneal Hemorrhage 2014. Hyperparathyroidism. Labryhthitis/Vertigo. Recent treatment for possible crohn 's disease - Surgical History Additional surgical history: 2014 Abd exploration for RP hemorrhage. Sigmoid colectomy for rectal prolapse. Breast augmentation. CCY. Bilateral knees. Bladder Suspension. Hyst w/ BSO - Family History Additional family history: Father colon cancer, Grandmother w/ stomach cancer, Mother lung cancer - Social History Smoking Status: Never smoked (extensive second hand exposure as child) Alcohol Use: None Drug Use: None Additional social history: independent w/ ADLs Review of Systems Review of Systems: ROS: 10pt was reviewed & negative except for what was stated in HPI & below Gastrointestinal: Reports: rectal bleeding, abdominal pain, constipation, nausea Physical Exam Physical Exam: Temp Pulse Resp BP Pulse Ox 36.8 C 88 18 135/85 H 97 01/14/17 15:39 01/14/17 15:39 01/14/17 15:39 01/14/17 17:04 01/14/17 15:39 Constitutional: no apparent distress, not in pain, chronically ill appearing, uncomfortable Eyes: PERRL, anicteric sclera, EOMI Ears, Nose, Mouth, Throat: hearing normal, other (tacky mucous membranes) Cardiovascular: regular rate and rhythym, no murmur, rub, or gallop, No edema Respiratory: no respiratory distress, no rales or rhonchi, clear to auscultation Gastrointestinal: normoactive bowel sounds, no palpable masses, tenderness ( mild in RLQ), other (R midline hernia, easily reducible w/o pain/tenderness), No distension Genitourinary: no bladder fullness, no bladder tenderness Skin: warm, normal color, no rashes or abrasions, no fluctuance, no induration, No mottled Neurologic: AAOx3, sensation intact bilaterally, No weakness Psychiatric: not encephalopathic, thought process linear, anxious, No agitated Lab Data & Imaging Review 01/14/17 16:10 01/14/17 16:10 WBC 6.34 10^3/uL (3.80-9.50) 01/14/17 16:10 RBC 4.82 10^6/uL (4.18-5.33) 01/14/17 16:10 Hgb 10.2 g/dL (12.6-16.3) L 01/14/17 16:10 Hct 33.5 % (38.0-47.0) L 01/14/17 16:10 MCV 69.5 fL (81.5-99.8) L 01/14/17 16:10 MCH 21.2 pg (27.9-34.1) L 01/14/17 16:10 MCHC 30.4 g/dL (32.4-36.7) L 01/14/17 16:10 RDW 18.7 % (11.5-15.2) H 01/14/17 16:10 Plt Count 319 10^3/uL (150-400) 01/14/17 16:10 MPV 10.4 fL (8.7-11.7) 01/14/17 16:10 Neut % (Auto) 55.7 % (39.3-74.2) 01/14/17 16:10 Lymph % (Auto) 27.0 % (15.0-45.0) 01/14/17 16:10 [place] % (Auto) 11.2 % (4.5-13.0) 01/14/17 16:10 Eos % (Auto) 4.3 % (0.6-7.6) 01/14/17 16:10 Baso % (Auto) 1.3 % (0.3-1.7) 01/14/17 16:10 Nucleat RBC Rel Count 0.0 % (0.0-0.2) 01/14/17 16:10 Absolute Neuts (auto) 3.54 10^3/uL (1.70-6.50) 01/14/17 16:10 Absolute Lymphs (auto) 1.71 10^3/uL (1.00-3.00) 01/14/17 16:10 Absolute Monos (auto) 0.71 10^3/uL (0.30-0.80) 01/14/17 16:10 Absolute Eos (auto) 0.27 10^3/uL (0.03-0.40) 01/14/17 16:10 Absolute Basos (auto) 0.08 10^3/uL (0.02-0.10) 01/14/17 16:10 Absolute Nucleated RBC 0.00 10^3/uL (0-0.01) 01/14/17 16:10 Immature Gran % 0.5 % (0.0-1.1) 01/14/17 16:10 Immature Gran # 0.03 10^3/uL (0.00-0.10) 01/14/17 16:10 Platelet Estimate ADEQUATE (ADEQ) 01/14/17 16:10 Hypochromasia 2+ H 01/14/17 16:10 Microcytic Cells 2+ H 01/14/17 16:10 PT 14.6 SEC (12.0-15.0) 01/14/17 16:10 INR 1.15 (0.83-1.16) 01/14/17 16:10 APTT 25.8 SEC (23.0-38.0) 01/14/17 16:10 Sodium 141 mEq/L (134-144) 01/14/17 16:10 Potassium 4.0 mEq/L (3.5-5.2) 01/14/17 16:10 Chloride 102 mEq/L (97-110) 01/14/17 16:10 Carbon Dioxide 26 mEq/l (22-31) 01/14/17 16:10 Anion Gap 13 mEq/L (8-16) 01/14/17 16:10 BUN 29 mg/dL (7-23) H 01/14/17 16:10 Creatinine 0.8 mg/dL (0.6-1.0) 01/14/17 16:10 Estimated GFR > 60 01/14/17 16:10 Glucose 94 mg/dL (70-100) 01/14/17 16:10 Calcium 8.9 mg/dL (8.5-10.4) 01/14/17 16:10 Total Bilirubin 0.2 mg/dL (0.1-1.4) 01/14/17 16:10 Conjugated Bilirubin 0.1 mg/dL (0.0-0.5) 01/14/17 16:10 Unconjugated Bilirubin 0.1 mg/dL (0.0-1.1) 01/14/17 16:10 AST 21 IU/L (14-46) 01/14/17 16:10 ALT 26 IU/L (9-52) 01/14/17 16:10 Alkaline Phosphatase 63 IU/L (38-126) 01/14/17 16:10 Troponin I < 0.012 ng/mL (0.000-0.034) 01/14/17 16:10 Total Protein 6.9 g/dL (6.3-8.2) 01/14/17 16:10 Albumin 3.8 g/dL (3.5-5.0) 01/14/17 16:10 Lipase 98 IU/L (23-300) 01/14/17 16:10 Procalcitonin 0.06 ng/mL (0.02-0.10) 01/14/17 Unknown Visualized and Interpreted EKG results: Yes EKG Interpretation: Positive for: other (NSR w/ Q in V2 and TWI) Assessment & Plan Assessment: 61 yo F p/w acute on chronic abdominal pain Plan: # Abdominal pain. Acute on chronic, new problem, further w/u indicated. D/w Dr. Martinez, he reports to me that Dr. Bear would like this patient under hospitalist care and GI will consult regarding etiology of pain, possibly acute on chronic Crohn's disease - reviewed outside records (12/11/16 EGD/Colonoscopy by Dr. Bear) demonstrating gastritis and incompletely visualized ileum, possible source of inflammation/pain - currently on budesonide, defer to Dr. Bear whether to re-trial systemic steroids (last time patient only tolerated PO steroids 4 days before her gastritis became too symptomatic - get FOB test, and recommended patient collect stool for providers to see - cont mesalamine - cont bentyl for likely irritable bowel component, and recommend ongoing seno + laxative to avoid further exacerbating any discomfort w/ constipation # Chronic pain w/ continuous opiate and benzodiazepine dependency. Anticipate that patient has underlying pain syndrome (chronic headaches, fibromyalgia, trigeminal neuralgia, likely irritable bowel), and it is unlikely that she will be symptomatically pain free, but currently managing w/ PO dilaudid scheduled, PRN librium (attempting to take only at night), anti-spasmodics # Iron deficient anemia. Chronic, MCV 69, has outpt IV iron scheduled on Friday - will begin giving doses now given her reported recent blood losse # Gastritis. Chronic, likely exacerbated by all of the Rx she is taking - cont PPI # Recent RML pneumonia. Suspect that she does not have bacterial pneumonia, CXR w/o significant consolidation (personally interpreted) and normal WBC, no other chest symptoms - holding further Abx to avoid exacerbating any GI symptoms - get Procalcitonin level for additional confirmation that no bacterial process at play Diet. Regular PPx. Low risk, SCDs Code. Full Dispo. ADD 01/15/17, pending eval by GI and potential tx w/ IV steroids.
[2017-01-14] MEDS ORDERED: valACYclovir 500 MG TAB PO PRN (19:15)
[2017-01-14] MEDS: FAMOTIDINE 20 MG TAB PO SCH (20:16)
[2017-01-14] MEDS: POTASSIUM CL 10 MEQ TAB PO SCH (20:16)
[2017-01-14] MEDS: GABAPENTIN 300 MG CAP PO SCH (20:17)
[2017-01-14] MEDS: HYDROmorphONE/DILAUDID 4 MG TAB PO SCH (20:17)
[2017-01-14] MEDS: TEMAZEPAM 15 MG CAP PO SCH (20:17)
[2017-01-14] MEDS: SENNOSIDES/DOCUSATE SODIUM TAB PO SCH (20:18)
[2017-01-14] MEDS: FLUTICASONE NASAL 120 SPRAYS/16 GM MDI EACHNARE SCH (20:23)
[2017-01-14] MEDS: AZELASTINE NASAL MDI NS SCH (20:23)
[2017-01-14] MEDS: OXYMETAZOLINE 30 ML NASAL SPRAY EACHNARE PRN (20:24)
[2017-01-14 20:37] LABS: COLOR YELLOW; LEUKOCYTE ESTERASE,URINE NEGATIVE (NEGATIVE); NITRITE,URINE NEGATIVE (NEGATIVE)
[2017-01-14] MEDS: TOPIRAMATE PO SCH (21:15)
[2017-01-14] MEDS: Cetirizine Hcl/Pseudoephedrine [Zyrtec-D Tablet] PO SCH (21:18)
[2017-01-14] MEDS: LANSOPRAZOLE SUSP 30MG/10ML UDSYR (Adult) PO SCH (21:34)
[2017-01-15 04:53] LABS: % IMMATURE GRANULYOCYTES 0.5 % (0.0-1.1); ABSOLUTE IMMATURE GRANULOCYTES 0.03 10^3/uL (0.00-0.10); ADD DIFF? NO; ADD MORPH? NO; ADD SCAN? NO; ATYPICAL LYMPHOCYTE FLAG 30 (0-99); FRAGMENT RBC FLAG 20 (0-99); HEMATOCRIT 33.5 % (38.0-47.0); HEMOGLOBIN 10.1 g/dL (12.6-16.3); LEFT SHIFT FLG 0 (0-99); LIPEMIA HEMOLYSIS FLAG 80 (0-99); MEAN CELL HEMOGLOBIN 21.6 pg (27.9-34.1); MEAN CELL HEMOGLOBIN CONCENTR. 30.1 g/dL (32.4-36.7); MEAN CELL VOLUME 71.6 fL (81.5-99.8); MEAN PLATELET VOLUME 10.2 fL (8.7-11.7); PLATELET CLUMPS FLAG 0 (0-99); PLATELET COUNT 290 10^3/uL (150-400); RED BLOOD CELL COUNT 4.68 10^6/uL (4.18-5.33); RED CELL DISTRIBUTION WIDTH 18.6 % (11.5-15.2)
[2017-01-15 05:10] LABS: ANION GAP 10 mEq/L (8-16); CALCIUM 8.5 mg/dL (8.5-10.4); CARBON DIOXIDE 28 mEq/l (22-31); CHLORIDE 103 mEq/L (97-110); CREATININE 0.7 mg/dL (0.6-1.0); GLOMERULAR FILTRATION RATE > 60; GLUCOSE 96 mg/dL (70-100); MAGNESIUM 1.9 mg/dL (1.6-2.3); POTASSIUM 3.9 mEq/L (3.5-5.2); SODIUM 141 mEq/L (134-144)
[2017-01-15] MEDS: SUMAtriptan 6 MG/0.5 ML VIAL SC PRN ×2 (05:19→06:38)
[2017-01-15] MEDS: Cetirizine Hcl/Pseudoephedrine [Zyrtec-D Tablet] PO SCH ×2 (06:37→21:10)
[2017-01-15] MEDS: HYDROmorphONE/DILAUDID 4 MG TAB PO SCH ×2 (08:56→21:08)
[2017-01-15] MEDS: FLUoxetine 20 MG CAP PO SCH (08:57)
[2017-01-15] MEDS: BUDESONIDE 3 MG EC CAP PO SCH (08:58)
[2017-01-15] MEDS: POTASSIUM CL 10 MEQ TAB PO SCH ×2 (08:59→21:08)
[2017-01-15] MEDS ORDERED: Herbals/Supplements -Info Only PO SCH (09:00)
[2017-01-15] MEDS: SENNOSIDES/DOCUSATE SODIUM TAB PO SCH ×2 (09:00→21:07)
[2017-01-15] MEDS ORDERED: MESALAMINE 1.5 GM PO SCH (09:00)
[2017-01-15] MEDS: TOPIRAMATE PO SCH ×2 (09:03→21:34)
[2017-01-15] MEDS: OXYMETAZOLINE 30 ML NASAL SPRAY EACHNARE PRN (09:04)
[2017-01-15] MEDS: FLUTICASONE NASAL 120 SPRAYS/16 GM MDI EACHNARE SCH ×2 (09:05→21:34)
[2017-01-15] MEDS: AZELASTINE NASAL MDI NS SCH ×2 (09:07→21:09)
[2017-01-15] MEDS: LANSOPRAZOLE SUSP 30MG/10ML UDSYR (Adult) PO SCH ×2 (09:22→21:34)
[2017-01-15] MEDS: SODIUM FERRIC GLUCONAT/SUCROSE 125 MG in NS 100 ML IV SCH (09:22)
[2017-01-15] MEDS ORDERED: predniSONE 20 MG TAB PO SCH (10:30)
[2017-01-15] MEDS ORDERED: IOPAMIDOL (ISOVUE-300) 100 ML BTL ONE (11:34)
[2017-01-15] MEDS ORDERED: DIAZEPAM 10 MG/2 ML SYR IVP ONE (11:45)
--- NOTE | 2017-01-15 12:44 | HOSPPROG ---
Hospitalist Progress Note Assessment/Plan: 61 yo F p/w acute on chronic abdominal pain. First encounter, chart reviewed. D/ W Dr Bear. Plan: # Abdominal pain. - possibly acute on chronic Crohn's disease - reviewed outside records (12/11/16 EGD/Colonoscopy by Dr. Bear) demonstrating gastritis and incompletely visualized ileum, granulamatous Crohn' s vs sarcoid. - currently on budesonide, D/W Dr. Bear start steriods. - get FOB test, and recommended patient collect stool for providers to see - cont mesalamine - cont bentyl for likely irritable bowel component, and recommend ongoing seno + laxative to avoid further exacerbating any discomfort w/ constipation -CT scan of abd/pelivs with PO contrast # Chronic pain w/ continuous opiate and benzodiazepine dependency. - (chronic headaches, fibromyalgia, trigeminal neuralgia, likely irritable bowel ), - it is unlikely that she will be symptomatically pain free # Iron deficient anemia. - Chronic, MCV 69, - IV iron infusion # Gastritis. - Chronic, likely exacerbated by all of the Rx she is taking - cont PPI # Recent reported RML pneumonia. - Suspect that she does not have bacterial pneumonia, - CXR w/o significant consolidation and normal WBC, no other chest symptoms - CT chest to further eval - holding further Abx to avoid exacerbating any GI symptoms - Procalcitonin normal, no signs of active infection CT abd/pelvis/chest Await GI consult, Dr Antionette Ames. Regular PPx. Low risk, SCDs Code. Full Subjective: Has migraine. Eager to go home. Objective: Vital Signs Temp Pulse Resp BP Pulse Ox 36.9 C 76 16 168/109 H 87 L 01/15/17 12:00 01/15/17 12:00 01/15/17 12:00 01/15/17 12:00 01/15/17 12:00 Laboratory Results 01/15/17 04:43 01/15/17 04:43 01/14/17 01/15/17 01/16/17 05:59 05:59 05:59 Intake Total 1000 Output Total 1400 Balance -400 PT 14.6 SEC (12.0-15.0) 01/14/17 16:10 INR 1.15 (0.83-1.16) 01/14/17 16:10 - Physical Exam Constitutional: chronically ill appearing, uncomfortable, cachectic Eyes: PERRL, anicteric sclera, EOMI Ears, Nose, Mouth, Throat: moist mucous membranes, hearing normal, ears appear normal Cardiovascular: regular rate and rhythym, No JVD, No edema Respiratory: no respiratory distress, no rales or rhonchi, reduced air movement Gastrointestinal: normoactive bowel sounds, tenderness, No ascites Skin: warm, normal color, No erythema Musculoskeletal: normal joint ROM, no joint effusions, generalized weakness Neurologic: AAOx3 Psychiatric: not encephalopathic, thought process linear, anxious, poor judgement ICD10 Worksheet Patient Problems: Problems Problem Status Onset Abdominal pain Acute Chest discomfort Acute Rectal bleeding Acute Abdominal pain Acute Bladder wall thickening Acute Chronic pain Acute Feeding tube obstruction Acute Hypokalemia Acute Hypokalemia due to loss of potassium Acute Ileitis Acute Leukocytosis Acute Narcotic dependency, continuous Acute Chronic constipation Chronic
[2017-01-15] MEDS: MESALAMINE 800 MG TAB.DR PO SCH ×2 (12:48→16:19)
--- NOTE | 2017-01-15 13:19 | GCON ---
[f rep st] CONSULTATION GI INPATIENT CONSULTATION DATE OF CONSULTATION: 01/15/2017 REFERRING PHYSICIAN: Maryjane Rey NP CHIEF COMPLAINT: I was kindly requested to see this patient by Maryjane Rey in consultation for a chief complaint of digestive symptoms. HISTORY OF PRESENT ILLNESS: She is a 61-year-old white female, who has had a chronic problem with the above. She presented to the emergency department now with abdominal pain, in her bilateral lower quadrants, but more so on the right side, with abdominal bloating, fullness, cramping. She also complains of no bowel movement over the last 4 days. She mentions some maroon, bright red blood per rectum. She has a long history of chronic abdominal pain with an extensive past and recent workup. Recently, when in the emergency department in October, she had a CT scan of the abdomen and pelvis with IV contrast, which I have reviewed. It shows only very mild bowel wall thickening in the distal terminal ileum, just 1- 2 cm from the ileocecal valve. In early December, she underwent a colonoscopy by my partner, Dr. Bear, where this area was looked at, as well as 10 to 15 cm total of terminal ileum, and was normal. Biopsies were done as well, which also returned normal. She was placed on prednisone 40 mg daily, but stopped this after 4 days, due to stomach upset. She has now been on Entocort 9 mg daily for about 2 weeks, but states no change in her symptoms. At the same time, she underwent an upper endoscopy by Dr. Bear. It was essentially normal, with minimal erythema findings in the stomach. Biopsies were done, which showed some mild chronic inflammation, but did mention some granulomas. Chest x-ray on admission just shows some atelectasis/ bronchiectasis only. She does have anemia with hematocrit of 33.5%. Dating back to 2004, her hematocrit was as low as 36%. She has a low MCV. For her chronic constipation, senna usually helps greatly. She states milk of magnesia and MiraLAX help less so. She has chronic abdominal pain with continuous opiate dependency, including anxiety with chronic benzodiazepine dependency, chronic headaches, trigeminal neuralgia. In 2010, she underwent a CT enteroclysis at [facility], where 5 intraluminal nonobstructing low densities were seen in the small bowel, felt to be most likely not significant. There was no dilation of the ileum then. PAST MEDICAL HISTORY: 1. As above. 2. Hyperparathyroidism. 3. Vertigo. 4. Sigmoid colectomy for rectal prolapse. 5. Cholecystectomy. 6. Hysterectomy with BSO. 7. Otherwise, noncontributory. MEDICATIONS: Outpatient medications include the above. She is also on dicyclomine 10 mg q.i.d. daily p.r.n., Prozac, Neurontin, Dilaudid, Prevacid 30 mg twice a day, ranitidine 300 mg q.h.s., 1.5 g of Apriso daily. Inpatient medications include Entocort 9 mg daily, prednisone 40 mg daily, Pepcid 20 mg q.h.s., IV iron, Prevacid 30 mg twice a day, Prozac, Neurontin, dicyclomine as needed, Dilaudid, senna twice a day, IV fluids. ALLERGIES: No known drug allergies, prednisone gave her stomach upset. SOCIAL HISTORY: She denies alcohol use. FAMILY HISTORY: Negative for similar abdominal symptoms. REVIEW OF SYSTEMS: Positive pertinent review of systems as per my HPI. Otherwise, a complete review of systems is negative. PHYSICAL EXAM: CONSTITUTIONAL: Somewhat chronically ill-appearing woman. VITAL SIGNS: Stable. SKIN: Warm, dry. EYES: Pupils equal, round, and reactive to light and accommodation. EARS, NOSE, MOUTH, AND THROAT: Moist mucosa, no masses seen. CARDIOVASCULAR: Normal S2, normal PMI. RESPIRATORY: Lungs clear to auscultation and percussion anteriorly. ABDOMEN: Mild lower abdominal tenderness, without rebound. NEUROLOGIC: Grossly nonfocal, cranial nerves grossly intact. PSYCHIATRIC: Orientation, insight appropriate. MUSCULOSKELETAL: Grossly normal throughout. Strength grossly normal throughout , normal station. LABORATORIES: Include the above. Normal coags. Normal liver function tests. Normal electrolytes. Lipase normal. Urinalysis negative. Hematocrit 33.5% with an MCV of 71.6. December duodenal biopsies were negative. Biopsies for Helicobacter pylori negative. Outpatient CRP slightly elevated at 4.6. ASSESSMENT: Chronic abdominal pain, including in the right lower quadrant and left lower quadrant, along with bloating, constipation, etc. Overall, suspect that this is functional in nature, with a psychosomatic, chronic pain overlay. Overall, doubt Crohn's. She did have some CT findings of the distal terminal ileum in October, but very mild and nonspecific, and this area was looked at directly and biopsied by Dr. Bear on subsequent colonoscopy and was normal. Past evaluations have also been negative, including a CT enteroclysis in 2010. She has not responded to aggressive therapy for Crohn's. A granuloma was seen on gastric biopsy but suspect nonspecific and not related to Crohn's. Sarcoidosis of the small bowel would also be unlikely, as this is quite rare, and doubt would cause this degree of symptoms. PLAN: 1. As above, doubt Crohn's or sarcoid of the ileum. However, to obtain extra data, she is undergoing a CT scan of the abdomen and pelvis. I will make sure that that is actually an enterography, and have that compared to her 2011 study at [facility]. 2. She is also undergoing a chest CT, to make sure no sarcoid, etc. 3. We will stop her prednisone, as this gave her significant side effects as an outpatient. For now, will continue inpatient Entocort. 4. Further management as per the hospitalist service. Thank you for allowing me to help in the management of this patient. /[id number]/MODL MTDD
--- NOTE | 2017-01-15 13:26 | ASMTCMCOM ---
CM Note CM Note Notes: Patient admitted for abdominal pain, possibly an acute on chronic Crohn's flare. She also has chronic pain issues and narcotic/benzo dependency. It is unlikely that she will have any discharge needs; she lives independently with her . If needs arise, CM available for coordination. Current D/C plan: home independent Date Signed: 01/15/2017 01:25 PM Electronically Signed By:Shante Monte RN
--- NOTE | 2017-01-15 13:55 | PDMN ---
Medical Necessity Medical necessity: M565 inflammatory bowel disease cont abd pain, iron deficiency, gastritis, with further eval and tx needed
[2017-01-15] MEDS: TEMAZEPAM 15 MG CAP PO SCH (21:07)
[2017-01-15] MEDS: GABAPENTIN 300 MG CAP PO SCH (21:07)
[2017-01-15] MEDS: FAMOTIDINE 20 MG TAB PO SCH (21:08)
[2017-01-16 00:30] VITALS: RESP 18
[2017-01-16] MEDS ORDERED: NS 500 ML IV ONE (00:48)
[2017-01-16 04:13] VITALS: PULSE 89
[2017-01-16 07:47] VITALS: TEMP 98.5
[2017-01-16] MEDS: SUMAtriptan 6 MG/0.5 ML VIAL SC PRN ×2 (09:20→11:37)
[2017-01-16] MEDS: HYDROmorphONE/DILAUDID 4 MG TAB PO SCH (09:22)
[2017-01-16] MEDS: FLUoxetine 20 MG CAP PO SCH (09:22)
[2017-01-16] MEDS: TOPIRAMATE PO SCH (09:23)
[2017-01-16] MEDS: FLUTICASONE NASAL 120 SPRAYS/16 GM MDI EACHNARE SCH (09:24)
[2017-01-16] MEDS: Cetirizine Hcl/Pseudoephedrine [Zyrtec-D Tablet] PO SCH ×2 (09:25→13:48)
[2017-01-16] MEDS: AZELASTINE NASAL MDI NS SCH (09:25)
[2017-01-16] MEDS ORDERED: IOPAMIDOL (ISOVUE-300) 100 ML BTL ONE (10:25)
[2017-01-16 11:23] VITALS: BP 111/70; O2SAT 91
[2017-01-16] MEDS: BUDESONIDE 3 MG EC CAP PO SCH (11:26)
[2017-01-16] MEDS: POTASSIUM CL 10 MEQ TAB PO SCH (11:26)
[2017-01-16] MEDS: MESALAMINE 800 MG TAB.DR PO SCH (11:26)
[2017-01-16] MEDS: SENNOSIDES/DOCUSATE SODIUM TAB PO SCH (11:27)
[2017-01-16] MEDS: LANSOPRAZOLE SUSP 30MG/10ML UDSYR (Adult) PO SCH (11:27)
[2017-01-16] MEDS: SODIUM FERRIC GLUCONAT/SUCROSE 125 MG in NS 100 ML IV SCH (12:43)
--- NOTE | 2017-01-16 15:26 | HOSPPROG ---
Hospitalist Progress Note Assessment/Plan: 61 yo F p/w acute on chronic abdominal pain. Plan: # Abdominal pain. - possibly acute on chronic Crohn's disease vs other, see GI note - reviewed outside records (12/11/16 EGD/Colonoscopy by Dr. Bear) demonstrating gastritis and incompletely visualized ileum, granulamatous Crohn' s vs sarcoid. - currently on budesonide, per GI - get FOB test, and recommended patient collect stool for providers to see - cont mesalamine - cont bentyl for likely irritable bowel component, and recommend ongoing seno + laxative to avoid further exacerbating any discomfort w/ constipation -CT scan of abd/pelivs with PO contrast, pending # Chronic pain w/ continuous opiate and benzodiazepine dependency. - (chronic headaches, fibromyalgia, trigeminal neuralgia, likely irritable bowel ), - it is unlikely that she will be symptomatically pain free # Iron deficient anemia. - Chronic, MCV 69, - IV iron infusion done yesterday - scheduled for infusions every Friday # Gastritis. - Chronic, likely exacerbated by all of the Rx she is taking - cont PPI # Recent reported RML pneumonia. - Suspect that she does not have bacterial pneumonia, -CT shows consolidation BLL, will get viral panel insetting of normal procalcitonin and normal wbc - CXR w/o significant consolidation and normal WBC, no other chest symptoms - holding further Abx to avoid exacerbating any GI symptoms CT abd/pelvis/chest Await further recs from GI consult, Dr Antionette Ames. Regular PPx. Low risk, SCDs Code. Full Subjective: Feeling better. Wants to go home. Still having abd pain and headache Objective: Vital Signs Temp Pulse Resp BP Pulse Ox 36.9 C 89 18 111/70 91 L 01/16/17 11:20 01/16/17 11:20 01/16/17 11:20 01/16/17 11:20 01/16/17 11:20 01/15/17 01/16/17 01/17/17 05:59 05:59 05:59 Intake Total 1440 800 Output Total 1900 Balance -460 800 PT 14.6 SEC (12.0-15.0) 01/14/17 16:10 INR 1.15 (0.83-1.16) 01/14/17 16:10 - Physical Exam Constitutional: appears nourished, chronically ill appearing Eyes: PERRL, anicteric sclera Ears, Nose, Mouth, Throat: moist mucous membranes, hearing normal Cardiovascular: No JVD, No edema Respiratory: no respiratory distress, reduced air movement Gastrointestinal: tenderness, No ascites, No guarding Skin: warm, normal color, No erythema Musculoskeletal: no joint effusions, generalized weakness Neurologic: AAOx3 Psychiatric: not anxious, not encephalopathic, poor insight ICD10 Worksheet Patient Problems: Problems Problem Status Onset Chronic constipation Chronic Chronic pain Acute Narcotic dependency, continuous Acute Hypokalemia Acute Leukocytosis Acute Hypokalemia due to loss of potassium Acute Abdominal pain Acute Feeding tube obstruction Acute Ileitis Acute Abdominal pain Acute Bladder wall thickening Acute Rectal bleeding Acute Chest discomfort Acute
--- NOTE | 2017-01-16 16:50 | SOAPPROG ---
SOAP Progress Note Assessment/Plan: Assessment/Plan: Suspect chronic functional abdominal pain, with a strong psychosomatic and pain overlay. No evidence whatsoever of Crohn's (or sarcoid) of the small or large bowel. - stop uceris, mesalamine. - management of the above will need to be via psychiatric medications and counseling; as per hospitalist and outpt. PCP. I will sign off; please call if we can be of further help [phone]. 01/16/17 16:12 Subjective: cc: digestive symptoms Some diarrhea, due to CT contrast. Tolerating p.o. Denies much in the way of abdominal pain today. No rigors, chills. Objective: Vital Signs Temp Pulse Resp BP Pulse Ox 36.9 C 89 18 111/70 91 L 01/16/17 11:20 01/16/17 11:20 01/16/17 11:20 01/16/17 11:20 01/16/17 11:20 01/15/17 01/16/17 01/17/17 05:59 05:59 05:59 Intake Total 1440 800 Output Total 1900 Balance -460 800 PT 14.6 SEC (12.0-15.0) 01/14/17 16:10 INR 1.15 (0.83-1.16) 01/14/17 16:10 CT abdomen/pelvis with enterography unremarkable, without bowel wall thickening , stranding, etc. CT chest with BLL consolidations, but no mention of hilar adenopathy. Physical Exam - Physical Exam General Appearance: WD/WN, alert, no apparent distress EENT: PERRL/EOMI, normal ENT inspection, pharynx normal, TMs normal Neck: non-tender, full range of motion, supple, normal inspection Respiratory: chest non-tender, lungs clear, normal breath sounds Cardiac/Chest: normal peripheral pulses, regular rate, rhythm Peripheral Pulses: 2+: carotid (R), carotid (L), femoral (R), femoral (L), dorsalis-pedis (R), dorsalis-pedis (L) Abdomen: normal bowel sounds, non-tender, soft Pelvic Exam: deferred Rectal: deferred Back: Normal inspection Skin: normal color, warm/dry Lymphatic: no adenopathy Extremities: normal range of motion, non-tender, normal inspection, normal capillary refill Neuro/Psych: no motor/sensory deficits, alert, normal mood/affect, oriented x 3 ICD10 Worksheet Patient Problems: Problems Problem Status Onset Abdominal pain Acute Chest discomfort Acute Rectal bleeding Acute Abdominal pain Acute Bladder wall thickening Acute Chronic pain Acute Feeding tube obstruction Acute Hypokalemia Acute Hypokalemia due to loss of potassium Acute Ileitis Acute Leukocytosis Acute Narcotic dependency, continuous Acute Chronic constipation Chronic
--- NOTE | 2017-01-17 10:15 | ASDISCHSUM ---
Discharge Information Plan Status: Medically Cleared to Leave: Discharge Date:01/16/2017 06:01 PM CM D/C Disposition: ADT D/C Disposition:Home, Routine, Self-Care Projected Discharge Date:01/16/2017 06:01 PM Transportation at D/C: Discharge Delay Reason: Follow-Up Date:01/16/2017 06:01 PM Discharge Slot: Final Diagnosis: Placement Information Patient Contact Information Contact Name:WAYNE Relationship: Address: [address] City:[place] Alternate Phone: [facility]/Zip Code:[place] [address] Email: Financial Information Financial Class:HMO and PPO Plans Primary Plan Desc[facility] Primary Plan Number:[id number] Secondary Plan Desc:MEDICARE INPATIENT Secondary Plan Number:[id number] Assessment Information [facility] CM Progress Note CM Note CM Note Notes: Patient admitted for abdominal pain, possibly an acute on chronic Crohn's flare. She also has chronic pain issues and narcotic/benzo dependency. It is unlikely that she will have any discharge needs; she lives independently with her . If needs arise, CM available for coordination. Current D/C plan: home independent Date Signed: 01/15/2017 01:25 PM Electronically Signed By:Shante Monte RN Intervention Information
--- NOTE | 2017-01-21 13:21 | GDS ---
[f rep st] DISCHARGE SUMMARY DISCHARGE DIAGNOSES: 1. Chronic abdominal pain. 2. Chronic pain with continuous opioid and benzodiazepine dependency. 3. Iron-deficiency anemia. 4. Gastritis. 5. Right middle lobe abnormality. STUDIES AND PROCEDURES DONE: A CT of the abdomen and chest. CONSULTATIONS: Gastroenterology. HOSPITAL COURSE: The patient is a 61-year-old female, who has a longstanding medical history, who wa s admitted to the hospital secondary to abdominal pain. She was evaluated and diagnosed with: 1. Chronic abdominal pain. During this hospitalization she did receive a consultation from Gastroen terology. Please refer to Gastroenterology's note. It is recommended the patient go off all of her medications. It does not appear she has any signs of Crohn disease at this time per the gastroentero logist's note. It is recommended that she receive therapy with a psychiatrist in the outpatient sett ing. 2. Chronic pain with continuous opioid and benzodiazepine dependency. Her medications were continue d during this hospitalization. This is likely causing some of her abdominal issues. It is recommend ed that she titrate off these in the outpatient setting. 3. Iron-deficiency anemia. The etiology of this is unclear, however, she has scheduled iron infusio ns outside the hospital on Friday. She did receive an iron infusion during this hospitalization. 4. Gastritis. This is chronic and likely exacerbated by all the patient's medications. It is recom mended that she titrate off her medications as much as possible. 5. Right middle lobe abnormality. It is unclear the etiology of this. During this hospitalization, she did receive a CT scan of her chest noting moderate consolidation with fibrotic changes. The pat ient had no signs of infection during this hospitalization. Her white count is within normal limits. She was afebrile and not requiring supplemental oxygen. It is still unclear regarding the etiology of this right middle lobe abnormality. Recommended to her that she follow up with the car cleaner in the outpatient setting and do further investigation of this abnormality. She is in agreement wit h this plan. DISPOSITION: Patient will be discharged home. There are no pending studies. DISCHARGE MEDICATIONS: Please refer to EMR form. Patient is reluctant to discontinue any of her pre viously prescribed home medications. No new medications have been prescribed during this hospital co urse. She will follow up with her primary care physician, Dr. Quinn Hooper, as well as Dr. Bear of gastroenterology. I spent greater than 35 minutes in the care, coordination, and management of this patient's dispositi on. /[id number]/MODL
== END 2017-01-16 18:01 | disposition home or self-care (01) | DRG 392 ==
LOC: F3E 19:51 → OBSVTOIN 01-15 13:55
PROVIDERS: ADMIT Internal Medicine; ATTEND Internal Medicine
DX: R10.31 Right lower quadrant pain (principal); R10.32 Left lower quadrant pain; D50.9 Iron deficiency anemia, unspecified; F11.20 Opioid dependence, uncomplicated; F15.20 Other stimulant dependence, uncomplicated; G89.29 Other chronic pain; K29.70 Gastritis, unspecified, without bleeding; G43.909 Migraine, unspecified, not intractable, without status migrainosus; E21.3 Hyperparathyroidism, unspecified; Z96.653 Presence of artificial knee joint, bilateral
CPT/HCPCS: 96374; 97166-GO; G0378; G8987-GO-CI; G8988-GO-CH; J2405; J2916; J3030; Q9967

== ENCOUNTER → 2017-05-14 | Outpatient (CLI) | payer OTHER | LOC: FIMAGING 11:54 | PROVIDERS: ATTEND Internal Medicine Pulmonary Disease | DX: Z09 Encounter for follow-up examination after completed treatment for conditions other than malignant neoplasm (principal); J18.9 Pneumonia, unspecified organism; R91.8 Other nonspecific abnormal finding of lung field; R07.9 Chest pain, unspecified ==

== ENCOUNTER 2017-07-22 05:56 | Observation (INO) | payer OTHER ==
--- NOTE | 2017-07-18 11:30 | GHP ---
[f rep st] PREOP HISTORY AND PHYSICAL DATE OF ADMISSION: 07/22/2017 DIAGNOSIS: Left knee osteoarthritis. PLANNED SURGERY: Left knee total knee arthroplasty. HISTORY OF PRESENT ILLNESS: Patient is a 62-year-old female with long history of left knee pain seco ndary to arthritis. After a long course of conservative treatment, the patient now opts for surgical intervention. PAST MEDICAL HISTORY: She is on chronic pain medication for back pain. History of hypertension. MEDICATIONS: Nucynta, oxycodone, gabapentin, clonazepam, Klor-Con, fluoxetine, temazepam, and ____. SURGICAL HISTORY: History of jaw replacement, a ruptured blood vessel in her stomach, history of ane axel, and parathyroidectomy. SOCIAL HISTORY: No alcohol, tobacco, or drug use. ALLERGIES: No known drug allergies. PHYSICAL EXAM: GENERAL: She is alert and oriented. NECK: Supple. CARDIAC: Regular rate and rhyt hm. Normal S1, S2. PULMONARY: Lungs are clear bilaterally. ABDOMEN: Normoactive bowel sounds. N ontender, nondistended. EXTREMITIES: Examination of the left knee shows skin to be clean, dry, inta ct. No swelling. No effusion. Tender medially. Range of motion is full. Calf is soft and nontend er with no evidence of DVT. ASSESSMENT/PLAN: Patient presents with long history of left knee osteoarthritis and has failed conse rvative treatment. After a long course, she now opts for surgical intervention. /[id number]/MODL
[2017-07-22] MEDS ORDERED: LR 1,000 ML IV ONE (06:08)
[2017-07-22] MEDS ORDERED: BUPIVACAINE 0.5% 30 ML SDV ONE (06:43)
[2017-07-22] MEDS ORDERED: CALCIUM CHLORIDE 1 GM/10 ML INJ ONE (06:43)
[2017-07-22] MEDS ORDERED: EPINEPHrine 1 MG/ML INJ ONE (06:43)
[2017-07-22] MEDS ORDERED: THROMBIN (BOVINE) 5,000 UNIT VIAL TP ONE (06:43)
[2017-07-22] MEDS ORDERED: POLYMYXIN B SULFATE 500,000 UNIT/10 ML SYR IRR ONE (06:44)
[2017-07-22] MEDS ORDERED: BACITRACIN 50,000 UNITS/10 ML SYR IRR ONE (06:44)
--- NOTE | 2017-07-22 06:54 | PDANEPAE ---
ANE History of Present Illness left tka ANE Past Medical History - Cardiovascular History Hx Hypertension: No Hx Arrhythmias: No Hx Chest Pain: No Hx Coronary Artery / Peripheral Vascular Disease: No Hx CHF / Valvular Disease: No Hx Palpitations: No - Pulmonary History Hx COPD: No Hx Asthma/Reactive Airway Disease: No Hx Recent Upper Respiratory Infection: Yes Hx Oxygen in Use at Home: No Hx Sleep Apnea: No Sleep Apnea Screening Result - Last Documented: Negative Pulmonary History Comment: PNEUMONIA/BRONCHIECTASIS 12/2016 - Neurologic History Hx Cerebrovascular Accident: No Hx Seizures: No Hx Dementia: No - Endocrine History Hx Diabetes: No Hypothyroid: No Hyperthyroid: No - Renal History Hx Renal Disorders: Yes Renal History Comment: DIFFICULTY WITH URINATION DURING HOSPITAL STAYS. uti's - Liver History Hx Hepatic Disorders: No - Neurological & Psychiatric Hx Hx Neurological and Psychiatric Disorders: Yes Neurological / Psychiatric History Comment: numbness to right hand, depression/ anxiety. botox for BISWAS 09/23 - Cancer History Hx Cancer: No - Congenital Disorder History Hx Congenital Disorders: No - GI History Hx Gastrointestinal Disorders: Yes Gastrointestinal History Comment: GERD - Other Health History Other Health History: anemia. CHRONIC PAIN SYNDROME. ARTHRALGIA OF LT TMJ. OSTEOARTHRITIS. TRIGEMINAL NEURALGIA - Chronic Pain History Chronic Pain: Yes (neck, jaw. BISWAS. arthris in back, knee.) - Surgical History Prior Surgeries: EGD/COLONOSCOPY. dental implants. bilat tmj titanium jaw implant. parathyroid 2016. ANE Review of Systems Review of systems is: negative Review of Systems: - Exercise capacity Exercise capacity: limited by disability METS (RN): 2 METS ANE Patient History - Allergies Allergies/Adverse Reactions: No Known Allergies Allergy (Verified 01/14/17 15:34) - Home Medications Home Medications: Azelastine HCl 2 spray NS BID 01/14/17 [Last Taken 07/22/17] Cetirizine HCl/Pseudoephedrine [Zyrtec-D Tablet] 1 each PO Q12H 01/14/17 [Last Taken 1 Day Ago ~07/21/17] Fluoxetine HCl [Prozac 40 mg] 40 mg PO DAILY 01/14/17 [Last Taken 1 Day Ago ~] Fluticasone Nasal [Flonase Nasal [place]] 2 sprays NASAL BID 01/14/17 [Last Taken 07/22/17] Gabapentin [Neurontin] 1,200 mg PO HS 01/14/17 [Last Taken 1 Day Ago ~07/21/17] Herbals/Supplements -Info Only 1 ea PO DAILY 01/14/17 [Last Taken 1 Week Ago ~] Lansoprazole 30 mg PO BID 01/14/17 [Last Taken 1 Day Ago ~07/21/17] Oxymetazoline HCl [Afrin Nasal [place]] 2 spray EACHNARE BID PRN 01/14/17 [Last Taken 1 Day Ago ~07/21/17] Potassium Chloride [Klor-Con 10] 10 meq PO BID 01/14/17 [Last Taken 07/22/17] Promethazine HCl [Phenergan 25mg (*)] 25 mg PO BID PRN 01/14/17 [Last Taken 1 Week Ago ~07/15/17] Ranitidine HCl [Zantac] 150 mg PO BID 01/14/17 [Last Taken 1 Day Ago ~07/21/17] SUMAtriptan [Imitrex Sc Injection] 6 mg SQ Q1H PRN 01/14/17 [Last Taken 1 Week Ago ~07/15/17] Sennosides/Docusate Sodium [Senna-S Tablet] 1 each PO BID 01/14/17 [Last Taken 1 Day Ago ~07/21/17] Simethicone [Gas Relief] 80 mg PO ACHS PRN 01/14/17 [Last Taken 1 Day Ago ~07/21] Temazepam [Restoril 15 MG (*)] 15 mg PO HS 01/14/17 [Last Taken 1 Day Ago ~07/21] Tizanidine HCl [Zanaflex] 4 mg PO BID PRN 01/14/17 [Last Taken 1 Day Ago ~] Topiramate [Topamax] 45 mg PO BID 01/14/17 [Last Taken 07/22/17] Valacyclovir HCl [Valtrex] 1,000 mg PO DAILY 01/14/17 [Last Taken 1 Day Ago ~] Tapentadol HCl [Nucynta 50 MG (*)] 50 mg PO TID PRN 07/14/17 [Last Taken ] oxyCODONE/APAP 5/325 [Percocet 5/325 (*)] 1 - 2 tab PO TID PRN 07/14/17 [Last Taken 07/22/17] Tapentadol HCl [Nucynta] 50 mg PO TID MDD 150 07/22/17 [Last Taken 07/22/17] - NPO status NPO Status: no food or drink >8 hours NPO Since - Liquids (Date): 07/22/17 NPO Since - Liquids (Time): 03:00 NPO Since - Solids (Date): 07/21/17 NPO Since - Solids (Time): 16:00 - Smoking Hx Smoking Status: Never smoked - Alcohol Use Alcohol Use: None - Family Anes Hx Family Hx Anesthesia Complications: none ANE Labs/Vital Signs - Vital Signs Vital Signs: reviewed preoperatively; see RN documention for details Blood Pressure: 140/90 Heart Rate: 77 Respiratory Rate: 18 O2 Sat (%): 96 Height: 162.56 cm Weight: 56.699 kg ANE Physical Exam - Airway Neck exam: decreased ROM Mallampati Score: Class 4 Mouth exam: dentures - Pulmonary Pulmonary: no respiratory distress - Cardiovascular Cardiovascular: regular rate and rhythym - ASA Status ASA Status: III ANE Anesthesia Plan Anesthesia Plan: general endotracheal anesthesia Regional Anesthesia: adductor canal FNB
[2017-07-22] MEDS ORDERED: ceFAZolin 2 GM/SWFI 2 GM/20 ML SYR IVP ONE (07:10)
[2017-07-22] MEDS ORDERED: TRANEXAMIC ACID 3,000 MG in NS (SYRINGE) 50 ML IRR ONE (07:10)
[2017-07-22] MEDS ORDERED: ACETAMINOPHEN 500 MG TAB PO ONE (07:10)
[2017-07-22] MEDS ORDERED: ROPIVACAINE 0.2% 80 MG, EPINEPHrine 0.2 MG, KETOROLAC TROMETHAMINE 30 MG, morphINE 10 M... IU ONE (07:10)
--- NOTE | 2017-07-22 07:10 | PDHPUP ---
History & Physical Update H&P update statement: This history and physical update is based on an assessment of the patient which was completed after admission or registration (within 24 hours), but prior to the surgery/procedure. H&P update: H&P reviewed & patient examined, no change in patient's condition since H&P completed
[2017-07-22] MEDS ORDERED: SIMETHICONE 80 MG TAB CHEW PO PRN (07:11)
[2017-07-22] MEDS ORDERED: OXYMETAZOLINE 30 ML NASAL SPRAY EACHNARE PRN (07:11)
[2017-07-22] MEDS ORDERED: PROMETHAZINE HCL 25 MG TAB PO PRN (07:11)
[2017-07-22] MEDS ORDERED: TAPENTADOL HCL 50 MG TAB PO PRN (07:11)
[2017-07-22] MEDS ORDERED: ROCURONIUM 50 MG/5 ML VIAL ONE (07:14)
[2017-07-22] MEDS ORDERED: fentaNYL 250 MCG/5 ML INJ ONE (07:14)
[2017-07-22] MEDS ORDERED: PROPOFOL 200 MG/20 ML VIAL ONE (07:14)
[2017-07-22] MEDS ORDERED: LIDOCAINE 2% 5 ML SDV ONE (07:14)
[2017-07-22] MEDS ORDERED: PSEUDOEPHEDRINE PO SCH (07:15)
[2017-07-22] MEDS ORDERED: CETIRIZINE HCL PO SCH (07:15)
[2017-07-22] MEDS ORDERED: DEXAMETHASONE 4 MG/ML VIAL ONE (07:46)
[2017-07-22] MEDS ORDERED: ONDANSETRON 4 MG/2 ML VIAL ONE (07:46)
[2017-07-22] MEDS ORDERED: HYDROmorphONE/DILAUDID 2 MG/ML INJ ONE ×2 (08:18→09:25)
[2017-07-22] MEDS ORDERED: SUGAMMADEX SODIUM 200 MG/2 ML VIAL IVP ONE (08:56)
[2017-07-22] MEDS ORDERED: NON-FORMULARY NEW DRUG (Valacyclovir Hcl [Valtrex] 1,000 MG) PO SCH (09:00)
[2017-07-22] MEDS ORDERED: NON-FORMULARY NEW DRUG (Ranitidine Hcl [Zantac] 150 MG) PO SCH (09:00)
[2017-07-22] MEDS ORDERED: TAPENTADOL HCL 50 MG PO SCH (09:00)
[2017-07-22] MEDS ORDERED: NON-FORMULARY NEW DRUG (Fluoxetine Hcl [Prozac 40 Mg] 40 MG) PO SCH (09:00)
[2017-07-22] MEDS ORDERED: NON-FORMULARY NEW DRUG (Potassium Chloride [Klor-Con 10] 10 MEQ) PO SCH (09:00)
[2017-07-22] MEDS ORDERED: LANSOPRAZOLE SUSP 3 MG/ML UDSYR (Peds) PO SCH (09:00)
[2017-07-22] MEDS ORDERED: TOPIRAMATE PO SCH (09:00)
--- NOTE | 2017-07-22 09:10 | POSTOPPROG ---
Post Op Note Date of Operation: 07/22/17 Surgeon: Nora Farrell Road Roller Operator Hot Mix: coltrain Anesthesia: GET(General Endotracheal) Pre-op Diagnosis: l knee oa Procedure: l tkr Inf/Abcess present in the surg proc area at time of surgery?: No Depth: Deep Incisional (Fascial) EBL: 100-500
[2017-07-22] MEDS ORDERED: METOCLOPRAMIDE 10 MG/2 ML VIAL IVP PRN (09:11)
[2017-07-22] MEDS ORDERED: PROMETHAZINE HCL 25 MG/ML INJ IVP PRN (09:11)
[2017-07-22] MEDS ORDERED: ONDANSETRON DISINTEGRATING 4 MG TAB PO PRN (09:11)
[2017-07-22] MEDS ORDERED: ONDANSETRON 4 MG/2 ML VIAL IVP PRN (09:11)
[2017-07-22] MEDS ORDERED: DIPHENOXYLATE/ATROPINE LOMOTIL 1 TAB PO PRN (09:11)
[2017-07-22] MEDS ORDERED: KETOROLAC 15 MG/1 ML SDV IVP ONE (09:11)
[2017-07-22] MEDS ORDERED: LACTULOSE 20 GM/30 ML UDCUP PO PRN (09:11)
[2017-07-22] MEDS ORDERED: PROMETHAZINE HCL 25 MG SUPPR PR PRN (09:11)
[2017-07-22] MEDS ORDERED: POLYETHYLENE GLYCOL 3350 17 GM PKT PO PRN (09:11)
[2017-07-22] MEDS ORDERED: diphenhydrAMINE 25 MG CAP PO PRN (09:11)
[2017-07-22] MEDS ORDERED: MAGNESIUM HYDROXIDE 30 ML UDCUP PO PRN (09:11)
[2017-07-22] MEDS ORDERED: BISACODYL 10 MG SUPP PR PRN (09:11)
[2017-07-22] MEDS: HYDROmorphONE/DILAUDID 2 MG/ML INJ IVP PRN ×5 (09:27→10:10)
[2017-07-22] MEDS ORDERED: fentaNYL 100 MCG/2 ML INJ IVP PRN (09:29)
[2017-07-22] MEDS ORDERED: ACETAMINOPHEN 500 MG TAB PO PRN (09:29)
[2017-07-22] MEDS ORDERED: NALOXONE HCL 0.4 MG/ML INJ IVP PRN (09:29)
[2017-07-22] MEDS ORDERED: oxyCODONE IR 5 MG TAB PO PRN (09:29)
[2017-07-22] MEDS ORDERED: LR 1,000 ML IV SCH (09:30)
[2017-07-22] MEDS ORDERED: KETOROLAC 15 MG/1 ML SDV ONE (09:37)
[2017-07-22] MEDS ORDERED: DIAZEPAM 5 MG/ML 1 ML SYR ONE (10:34)
[2017-07-22] MEDS: DIAZEPAM 5 MG/ML 1 ML SYR IVP PRN ×2 (10:36→10:56)
[2017-07-22] MEDS ORDERED: oxyCODONE IR 5 MG TAB ONE ×2 (10:42→10:45)
--- NOTE | 2017-07-22 11:38 | GOP ---
[f rep st] OPERATIVE REPORT DATE OF OPERATION: 07/22/2017 SURGEON: Nora Farrell MD REGIONAL GEODETIC ADVISOR: Quincy Dove, CSFA, LSA, whose presence was medically necessary. ANESTHESIA: By endotracheal intubation. PREOPERATIVE DIAGNOSIS: Left knee osteoarthritis. POSTOPERATIVE DIAGNOSIS: Left knee osteoarthritis. PROCEDURE PERFORMED: Left total knee arthroplasty. FINDINGS: INDICATIONS: This is a 62-year-old female with a long history of left knee pain worsening with use a nd with time and worsening valgus deformity. X-ray exam reveals [id number] osteoarthritic changes. She wishes to have surgery in order to resolve the problem. DESCRIPTION OF PROCEDURE: Patient brought to the operating room after the left side had been identif ied as the correct side by the patient, nurse, and physician. Once in the operating room, she was pl aced under general anesthesia using endotracheal intubation. Once asleep, she had a tourniquet place d around the upper portion of the left thigh, and the left lower extremity sterilely prepped and drap ed in the usual fashion using GSI solution. Once prepped and draped, limb was exsanguinated, tourniq uet inflated to 250 mmHg. Incision was made on the anterior portion of the knee 1 handbreadth above and below the patella, with sharp dissection carried down through the skin and subcutaneous layer wit h bleeding controlled using electrocautery. A medial parapatellar incision was made with the patella brought to the side but not everted. The ACL as well as the medial and lateral meniscus were remove d. She was noted to have [id number] osteoarthritic changes to the lateral compartment as well as g rade 3 chondral changes to the patellar and medial compartments. Osteophytes were removed. The knee was brought to 90 degrees of flexion. A drill hole was made 1 cm anterior to the intercondylar notc h and an intramedullary guide placed within the femur. The end cutting guide was set at 5 degrees of valgus and set to remove 10 mm of bone. Once in place and pinned into place, the intramedullary maxwell de was removed. An oscillating saw was used to remove the distal end of the femur until achieving a smooth cut. The guide was then removed, was used to ensure a flat cut. Cartilage was removed from t he posterior condyles of the medial compartment and a sizing guide placed on the distal end of the fe mur. It was pinned into place and a sizer was used, noted a size 3 seemed to fit best without notchi ng the anterior cortex. Therefore, drill holes were made and a size 3, 4-in-1 cutting block was put into place. Once pinned into place, anterior, posterior, and chamfer cuts were made. A 3 trial was then put into place. The knee was noted to be able to achieve full extension. Therefore, lug holes were drilled for the femoral component, and this femoral trial was removed. The knee was then ivan t to maximal flexion, tibia subluxed anteriorly, and external tibial guide was put into place, set in neutral varus/valgus with slight posterior slope. Once pinned into place, the guide was removed and a drop nikki was placed through the plate, noted to be in good alignment, and a locking pin was put in to place. Oscillating saw was used to remove the proximal portion of the tibia. Trial femur, tibia, and trial liner into the tibia were put into place. The knee was able to achieve full extension. T herefore, the trials were again removed, the knee brought to maximal flexion, tibia subluxed anterior , multiple sizers were placed on the proximal tibia and noted a size 3 tibial tray seemed to fit best . It was positioned into slight external rotation, pinned into place, and a keel punch passed throug h the guide into the proximal tibia. After the trials were removed, a 2nd guide was placed within th e keel punch for a press-fit device, and drill holes were made for a press-fit device. The knee was brought into full extension. The patella tendon was then everted, held in place with towel clamps. The patella was measured to be 24 mm in depth. Oscillating saw was used to remove the posterior port ion of the patella, leaving 16 mm of bone. Trials were placed on the cut surface of the patella and noted a 32 mm button seemed to fit best, and lug holes were drilled for a 32 mm patellar button. The knee was brought back to maximal flexion, tibia subluxed anteriorly, and a size 3 Triathlon Tritaniu m press-fit tibial component from [employer] was put into place and noted to fit securely, at which poin t, a size 3 cruciate-retaining Triathlon press-fit component was put into place on the femur and a tr ial liner placed in the tibial tray and the knee brought to full extension. A 32 mm press-fit patell ar component from [employer] was then put into place on the patella and noted to fit securely. Multiple trials were placed in the tibial tray and noted that a size 9 seemed to fit best. Therefore, a size 3, 9 mm Triathlon X3 polyethylene component was put into place and noted to fit securely. Joint douglas ktail was injected in the posterior capsule, along the sides of the extensor mechanism, along the per iosteum of the femur and tibia. Tranexamic acid was then irrigated through the wound. Tourniquet wa s released at 39 minutes. Bleeding was controlled using electrocautery. The wound was then closed u sing 0 Vicryl suture in a zrpmgr-rq-milkr type stitch for the extensor mechanism with plasma gel plac ed intra-articularly. 0 Vicryl and 2-0 Vicryl sutures were used for the subcutaneous layers with candis sma gel placed external to the extensor mechanism, and then a 3-0 V-Loc suture in a running subcuticu lar stitch was used to close the skin. 30 cc of Marcaine was infused around the actual incision itse lf. The wound was then dressed with Steri-Strips, Xeroform, 4 x 4, and Kerlix. The leg was complete ly undraped in the operating room, tourniquet removed from the thigh, and an Alfonso wrap placed around t he knee. The patient was then transferred onto a stretcher and sent to recovery [facility] on. /[id number]/MODL
[2017-07-22] MEDS: AZELASTINE NASAL MDI NS SCH ×2 (12:00→23:57)
[2017-07-22] MEDS: FLUoxetine 20 MG CAP PO SCH (12:01)
[2017-07-22] MEDS: traMADol 50 MG TAB PO SCH ×3 (12:04→23:56)
[2017-07-22] MEDS: ACETAMINOPHEN 325 MG TAB PO SCH ×3 (12:04→23:56)
[2017-07-22] MEDS: valACYclovir 500 MG TAB PO SCH (12:26)
[2017-07-22] MEDS: POTASSIUM CL 10 MEQ TAB PO SCH ×2 (12:27→22:20)
[2017-07-22] MEDS: PSEUDOEPHEDRINE PO SCH (12:28)
[2017-07-22] MEDS: CETIRIZINE HCL PO SCH (12:28)
[2017-07-22] MEDS: CYCLOBENZAPRINE 10 MG TAB PO PRN ×2 (12:32→22:45)
[2017-07-22] MEDS ORDERED: SUMAtriptan 6 MG/0.5 ML VIAL SC PRN (12:38)
[2017-07-22] MEDS: FAMOTIDINE 20 MG TAB PO SCH ×3 (12:52→22:27)
[2017-07-22] MEDS: PANTOPRAZOLE SODIUM 40 MG TAB PO SCH ×2 (13:36→22:20)
[2017-07-22] MEDS: SENNOSIDES/DOCUSATE SODIUM TAB PO SCH ×2 (13:46→22:20)
[2017-07-22] MEDS: TAPENTADOL HCL 50 MG TAB PO SCH ×3 (13:47→22:44)
[2017-07-22] MEDS: ceFAZolin 2 GM/DEXTROSE 100 ML IV SCH ×2 (13:49→22:40)
[2017-07-22] MEDS: oxyCODONE IR 5 MG TAB PO PRN ×2 (17:53→22:45)
[2017-07-22] MEDS ORDERED: NON-FORMULARY NEW DRUG (Gabapentin [Neurontin] 1,200 MG) PO SCH (21:00)
[2017-07-22] MEDS: TEMAZEPAM 15 MG CAP PO SCH (22:21)
[2017-07-22] MEDS: GABAPENTIN 400 MG CAP PO SCH (22:21)
[2017-07-22] MEDS: TOPIRAMATE PO SCH (22:40)
[2017-07-23] MEDS: PSEUDOEPHEDRINE PO SCH ×2 (00:06→12:00)
[2017-07-23] MEDS: CETIRIZINE HCL PO SCH ×2 (00:06→12:00)
[2017-07-23] MEDS: traMADol 50 MG TAB PO SCH ×3 (05:21→18:36)
[2017-07-23] MEDS: oxyCODONE IR 5 MG TAB PO PRN ×5 (05:21→21:04)
[2017-07-23] MEDS: ACETAMINOPHEN 325 MG TAB PO SCH ×3 (07:10→18:36)
[2017-07-23] MEDS: TAPENTADOL HCL 50 MG TAB PO SCH ×3 (08:40→22:58)
[2017-07-23] MEDS: valACYclovir 500 MG TAB PO SCH (08:40)
[2017-07-23] MEDS: FAMOTIDINE 20 MG TAB PO SCH ×3 (08:41→21:01)
[2017-07-23] MEDS: FLUoxetine 20 MG CAP PO SCH (08:41)
[2017-07-23] MEDS: RIVAROXABAN 10 MG TAB PO SCH (08:41)
[2017-07-23] MEDS: SENNOSIDES/DOCUSATE SODIUM TAB PO SCH ×2 (08:41→21:02)
[2017-07-23] MEDS: POTASSIUM CL 10 MEQ TAB PO SCH ×2 (08:41→21:02)
[2017-07-23] MEDS: PANTOPRAZOLE SODIUM 40 MG TAB PO SCH ×2 (08:41→21:01)
[2017-07-23] MEDS: TOPIRAMATE PO SCH ×2 (08:42→21:03)
[2017-07-23] MEDS: CYCLOBENZAPRINE 10 MG TAB PO PRN ×2 (12:50→21:04)
[2017-07-23] MEDS: AZELASTINE NASAL MDI NS SCH ×2 (14:14→21:00)
--- NOTE | 2017-07-23 15:29 | ASMTCMCOM ---
CM Note CM Note Notes: Pt is s/p L TKA. OT rec home, PT rec home health and 24/hr supervision. A challenge with setting up home health PT is pt [employer] insurance and [place] location, it appears there may not be a home health agency which can service insurance and location. So far over 18 home health agencies have reported they are unable to staff pt. Several referrals are pending and CM will continue to try to secure home PT. Spoke with pt and Quinn about this, Quinn will try to call [employer] to determine what they recommend. Quinn works from home and will provide 24/hr supervision. CM to follow. Date Signed: 07/23/2017 03:29 PM Electronically Signed By:ZHANG Vallejo
--- NOTE | 2017-07-23 18:04 | SOAPPROG ---
SOAP Progress Note Assessment/Plan: Assessment: Plan: Subjective: still having issues with pain and respiartion dressing C&D with foot NVI bed is locked and unable to elevate her knee cont PT plan for DC tomorrow Objective: Vital Signs Temp Pulse Resp BP Pulse Ox 36.8 C 81 16 130/64 H 93 07/23/17 15:39 07/23/17 15:39 07/23/17 15:39 07/23/17 15:39 07/23/17 15:39 Laboratory Results 07/23/17 04:39 07/22/17 07/23/17 07/24/17 05:59 05:59 05:59 Intake Total 2500 Output Total 1630 800 Balance 870 -800 ICD10 Worksheet Patient Problems: Problems Problem Status Onset Abdominal pain Acute Abdominal pain Acute Bladder wall thickening Acute Chest discomfort Acute Chronic pain Acute Feeding tube obstruction Acute Hypokalemia Acute Hypokalemia due to loss of potassium Acute Ileitis Acute Leukocytosis Acute Narcotic dependency, continuous Acute Rectal bleeding Acute Chronic constipation Chronic
[2017-07-23] MEDS: GABAPENTIN 400 MG CAP PO SCH (21:01)
[2017-07-23] MEDS: TEMAZEPAM 15 MG CAP PO SCH (21:02)
[2017-07-24] MEDS: ACETAMINOPHEN 325 MG TAB PO SCH ×5 (00:46→23:46)
[2017-07-24] MEDS: traMADol 50 MG TAB PO SCH ×5 (00:46→23:46)
[2017-07-24] MEDS: oxyCODONE IR 5 MG TAB PO PRN ×4 (00:47→21:00)
[2017-07-24] MEDS: CETIRIZINE HCL PO SCH ×3 (00:47→23:46)
[2017-07-24] MEDS: PSEUDOEPHEDRINE PO SCH ×3 (00:47→23:46)
[2017-07-24] MEDS: CYCLOBENZAPRINE 10 MG TAB PO PRN ×2 (06:32→17:58)
[2017-07-24] MEDS: POTASSIUM CL 10 MEQ TAB PO SCH ×2 (07:59→20:59)
[2017-07-24] MEDS: valACYclovir 500 MG TAB PO SCH (08:00)
[2017-07-24] MEDS: SENNOSIDES/DOCUSATE SODIUM TAB PO SCH ×2 (08:00→21:00)
[2017-07-24] MEDS: FAMOTIDINE 20 MG TAB PO SCH ×2 (08:00→20:59)
[2017-07-24] MEDS: PANTOPRAZOLE SODIUM 40 MG TAB PO SCH ×2 (08:01→21:00)
[2017-07-24] MEDS: FLUoxetine 20 MG CAP PO SCH (08:01)
[2017-07-24] MEDS: TAPENTADOL HCL 50 MG TAB PO SCH ×3 (08:02→23:02)
[2017-07-24] MEDS: RIVAROXABAN 10 MG TAB PO SCH (08:03)
[2017-07-24] MEDS: TOPIRAMATE PO SCH ×2 (08:05→21:01)
[2017-07-24] MEDS: AZELASTINE NASAL MDI NS SCH ×2 (12:03→21:03)
--- NOTE | 2017-07-24 15:40 | ASMTCMCOM ---
CM Note CM Note Notes: [facility] can accept pt for [facility]HC PT (an interagency transfer of care specifying home care PT will be required by MD at d/c). Pt having respiration issues and not ready for d/c. Pt likely d/c tomorrow. Date Signed: 07/24/2017 03:40 PM Electronically Signed By:ZHANG Vallejo
[2017-07-24] MEDS ORDERED: NS 1,000 ML IV ONE ×2 (16:00→16:23)
--- NOTE | 2017-07-24 16:29 | PDHOSCONS ---
History and Physical - Chief Complaint hypoxemia, hypotension - History of Present Illness This is a 62 yo female who had Left Total Knee Arthroplasty on 07/[address] Farrell who could not discharge today due to hypoxemia and hypotension. Her room air sat is 85%. She does not feel SOB. She does not have CP. She is able to take a deep breath. She does not have increased work of breathing. She does not have a baseline supplemental O2 requirement. She has been using her IS She was also found to have hypotension which appears to have worsen throughout the day. Her most recent BP is 73/53. She feels a little weak. She does have malaise. She has urinated twice, and urine has been concentrated. She does not have any fever. She denies CV or renal disease. Her pain is well controlled. She has not required lots of narcotics. She does not have encephalopathy She was started on Xarelto 10mg daily yesterday. PMHx: chronic abd pain chronic pain syndrome OA of left knee Iron deficiency anemia Gastritis RML irregularity (w/u during her last hospitalization in 2016) PSHx Left total knee arthroplasty (this hospitalization) abd exploratory lap sigmoid colectomy SHx: no t/e/i FmHx: colon cancer History Information - Allergies/Home Medication List Allergies/Adverse Reactions: No Known Allergies Allergy (Verified 01/14/17 15:34) Home Medications: Azelastine HCl 2 spray NS BID 01/14/17 [Last Taken 07/22/17] Cetirizine HCl/Pseudoephedrine [Zyrtec-D Tablet] 1 each PO Q12H 01/14/17 [Last Taken 1 Day Ago ~07/21/17] Fluoxetine HCl [Prozac 40 mg] 40 mg PO DAILY 01/14/17 [Last Taken 1 Day Ago ~] Fluticasone Nasal [Flonase Nasal [place]] 2 sprays NASAL BID 01/14/17 [Last Taken 07/22/17] Gabapentin [Neurontin] 1,200 mg PO HS 01/14/17 [Last Taken 1 Day Ago ~07/21/17] Herbals/Supplements -Info Only 1 ea PO DAILY 01/14/17 [Last Taken 1 Week Ago ~] Lansoprazole 30 mg PO BID 01/14/17 [Last Taken 1 Day Ago ~07/21/17] Oxymetazoline HCl [Afrin Nasal [place]] 2 spray EACHNARE BID PRN 01/14/17 [Last Taken 1 Day Ago ~07/21/17] Potassium Chloride [Klor-Con 10] 10 meq PO BID 01/14/17 [Last Taken 07/22/17] Promethazine HCl [Phenergan 25mg (*)] 25 mg PO BID PRN 01/14/17 [Last Taken 1 Week Ago ~07/15/17] Ranitidine HCl [Zantac] 150 mg PO BID 01/14/17 [Last Taken 1 Day Ago ~07/21/17] SUMAtriptan [Imitrex Sc Injection] 6 mg SQ Q1H PRN 01/14/17 [Last Taken 1 Week Ago ~07/15/17] Sennosides/Docusate Sodium [Senna-S Tablet] 1 each PO BID 01/14/17 [Last Taken 1 Day Ago ~07/21/17] Simethicone [Gas Relief] 80 mg PO ACHS PRN 01/14/17 [Last Taken 1 Day Ago ~07/21] Temazepam [Restoril 15 MG (*)] 15 mg PO HS 01/14/17 [Last Taken 1 Day Ago ~07/21] Tizanidine HCl [Zanaflex] 4 mg PO BID PRN 01/14/17 [Last Taken 1 Day Ago ~] Topiramate [Topamax] 45 mg PO BID 01/14/17 [Last Taken 07/22/17] Valacyclovir HCl [Valtrex] 1,000 mg PO DAILY 01/14/17 [Last Taken 1 Day Ago ~] Tapentadol HCl [Nucynta 50 MG (*)] 50 mg PO TID PRN 07/14/17 [Last Taken ] oxyCODONE/APAP 5/325 [Percocet 5/325 (*)] 1 - 2 tab PO TID PRN 07/14/17 [Last Taken 07/22/17] Tapentadol HCl [Nucynta] 50 mg PO TID MDD 150 07/22/17 [Last Taken 07/22/17] I have personally reviewed and updated: medical history, social history - Past Medical History fibromyalgia Additional medical history: Trigeminal neuralgia. Chronic headaches (Migraines , Clusters). Chronic abdominal pain w/ continuous opiate dependency. Anxiety w / chronic benzo dependency. Spontaneous Retroperitoneal Hemorrhage 2015. Hyperparathyroidism. Labryhthitis/Vertigo. Recent treatment for possible crohn 's disease - Surgical History Additional surgical history: 2015 Abd exploration for RP hemorrhage. Sigmoid colectomy for rectal prolapse. Breast augmentation. CCY. Bilateral knees. Bladder Suspension. Hyst w/ BSO - Family History Additional family history: Father colon cancer, Grandmother w/ stomach cancer, Mother lung cancer - Social History Smoking Status: Never smoked Alcohol Use: None Additional social history: independent w/ ADLs Review of Systems Review of Systems: ROS: 10pt was reviewed & negative except for what was stated in HPI & below Physical Exam Physical Exam: Temp Pulse Resp BP Pulse Ox 36.9 C 94 15 82/54 L 90 L 07/24/17 14:52 07/24/17 14:52 07/24/17 14:52 07/24/17 14:52 07/24/17 14:52 O2 (L/minute) 3 Constitutional: no apparent distress Eyes: PERRL, EOMI Ears, Nose, Mouth, Throat: hearing normal, ears appear normal, dry mucous membranes Cardiovascular: regular rate and rhythym, No no murmur, rub, or gallop, No JVD, No edema Respiratory: no respiratory distress, clear to auscultation, No expiratory wheeze, No inspiratory crackles, No rhonchi Gastrointestinal: normoactive bowel sounds, soft, non-tender abdomen Skin: warm Musculoskeletal: full muscle strength Neurologic: AAOx3 Psychiatric: interacting appropriately, not anxious, not encephalopathic Lymph, Heme, Immunologic: No petechiae Lab Data & Imaging Review 07/24/17 04:48 Hgb 10.8 g/dL (12.6-16.3) L 07/24/17 04:48 Hct 33.9 % (38.0-47.0) L 07/24/17 04:48 Assessment & Plan Assessment: This is a 62 yo female admitted by Dr. Farrell for Left total knee arthroplasty on 07/22 who we have been asked to consult on due to hypoxemia and hypotension #s/p Left knee Arthroplasty #Hypoxemia #Hypotension, likely fluid related. I dont see signs of infection. #chronic pain syndrome Plan: -The etiology of both her hypoxemia and hypotension are unclear. She is not symptomatic. On exam she appears dry but otherwise the exam is reassuring. She has not had a fever. Although she is at risk for P.E. she is on Xarelto at 10mg daily. At this time, will give IVF bolus plus ongoing. will determine response. No need for abx. Check CXR. -Her Hgb has not dropped much, will recheck. check BMP -Cont IS -Further reccs pending w/u thank you for this consultation, we will cont to follow along
[2017-07-24] MEDS ORDERED: NS 1,000 ML IV SCH (16:30)
[2017-07-24 17:17] LABS: PLATELET COUNT 179 10^3/uL (150-400)
--- NOTE | 2017-07-24 20:33 | SOAPPROG ---
SOAP Progress Note Assessment/Plan: Assessment: Plan: Subjective: continues to have issues with BP and resp slow progression with PT dressing C&D with foot NVI appreciate hospitalist help cont pt Objective: Vital Signs Temp Pulse Resp BP Pulse Ox 36.7 C 74 16 126/65 H 94 07/24/17 19:29 07/24/17 19:29 07/24/17 19:29 07/24/17 19:29 07/24/17 19:29 Laboratory Results 07/24/17 17:00 07/24/17 17:00 07/23/17 07/24/17 07/25/17 05:59 05:59 05:59 Intake Total 2500 200 500 Output Total 1630 1400 1400 Balance 870 -1200 -900 ICD10 Worksheet Patient Problems: Problems Problem Status Onset Abdominal pain Acute Abdominal pain Acute Bladder wall thickening Acute Chest discomfort Acute Chronic pain Acute Feeding tube obstruction Acute Hypokalemia Acute Hypokalemia due to loss of potassium Acute Ileitis Acute Leukocytosis Acute Narcotic dependency, continuous Acute Rectal bleeding Acute Chronic constipation Chronic
[2017-07-24] MEDS: GABAPENTIN 400 MG CAP PO SCH (21:00)
[2017-07-24] MEDS: TEMAZEPAM 15 MG CAP PO SCH (21:00)
[2017-07-24] MEDS: ALBUTEROL 3 ML DEYVIAL IH SCH (23:45)
[2017-07-25] MEDS: CYCLOBENZAPRINE 10 MG TAB PO PRN ×2 (04:41→14:36)
[2017-07-25] MEDS: traMADol 50 MG TAB PO SCH ×3 (04:41→18:04)
[2017-07-25] MEDS: ACETAMINOPHEN 325 MG TAB PO SCH ×3 (04:41→18:05)
[2017-07-25] MEDS: ALBUTEROL 3 ML DEYVIAL IH SCH ×3 (05:48→17:01)
[2017-07-25] MEDS: valACYclovir 500 MG TAB PO SCH (08:26)
[2017-07-25] MEDS: TAPENTADOL HCL 50 MG TAB PO SCH ×2 (08:26→14:35)
[2017-07-25] MEDS: POTASSIUM CL 10 MEQ TAB PO SCH (08:26)
[2017-07-25] MEDS: oxyCODONE IR 5 MG TAB PO PRN ×3 (08:27→18:04)
[2017-07-25] MEDS: PANTOPRAZOLE SODIUM 40 MG TAB PO SCH (08:28)
[2017-07-25] MEDS: FLUoxetine 20 MG CAP PO SCH (08:28)
[2017-07-25] MEDS: SENNOSIDES/DOCUSATE SODIUM TAB PO SCH (08:29)
[2017-07-25] MEDS: FAMOTIDINE 20 MG TAB PO SCH (08:29)
[2017-07-25] MEDS: RIVAROXABAN 10 MG TAB PO SCH (08:30)
--- NOTE | 2017-07-25 12:18 | HOSPPROG ---
Hospitalist Progress Note Assessment/Plan: This is a 62 yo female admitted by Dr. Farrell for Left total knee arthroplasty on 07/22 who we have been asked to consult on due to hypoxemia and hypotension first encounter, chart reviewed. D/W CM and RN. #s/p Left knee Arthroplasty POD #3 stable #Pain cont pain meds #Hypoxemia improving likely related to ATX cont IS will order home O2 duoneb #Hypotension, likely fluid related responded to IVF no signs of infection. #chronic pain syndrome cont pain meds #DVT proph Xarelto #Dispo per ortho home with home O2 Subjective: Feeling better. Still having pain. No other issues. Objective: Vital Signs Temp Pulse Resp BP Pulse Ox 36.6 C 68 18 142/87 H 93 07/25/17 08:00 07/25/17 08:00 07/25/17 08:00 07/25/17 08:00 07/25/17 08:00 Laboratory Results 07/24/17 17:00 07/24/17 17:00 07/24/17 07/25/17 07/26/17 05:59 05:59 05:59 Intake Total 200 600 Output Total 1400 2049 250 Balance -1200 -1450 -250 - Physical Exam Constitutional: no apparent distress, appears nourished, uncomfortable Eyes: PERRL, anicteric sclera, EOMI Ears, Nose, Mouth, Throat: moist mucous membranes, hearing normal, ears appear normal Cardiovascular: No JVD, No tachycardia, No edema Respiratory: no respiratory distress, no rales or rhonchi, reduced air movement Gastrointestinal: normoactive bowel sounds, No tenderness, No ascites Skin: warm, normal color, No mottled Musculoskeletal: joint tenderness, pain with ROM, generalized weakness Neurologic: AAOx3 Psychiatric: interacting appropriately, not anxious, not encephalopathic, thought process linear ICD10 Worksheet Patient Problems: Problems Problem Status Onset Chronic constipation Chronic Chronic pain Acute Narcotic dependency, continuous Acute Hypokalemia Acute Leukocytosis Acute Hypokalemia due to loss of potassium Acute Abdominal pain Acute Feeding tube obstruction Acute Ileitis Acute Abdominal pain Acute Bladder wall thickening Acute Rectal bleeding Acute Chest discomfort Acute
--- NOTE | 2017-07-25 14:00 | PDHOMEO2F ---
Home Oxygen Face to Face Home Orders: I certify that a physician or a nurse practitioner or physician's chef's assistant has had a [id number]-[id number] encounter with this patient on the date of this order due to the diagnosis listed, which relates to the primary reason the patient requires home oxygen. Alternative treatments have been tried, or considered, and deemed ineffective. It is anticipated that supplemental oxygen will result in improvement with treatment. Home oxygen qualifying diagnosis: COPD SpO2 on room air (%): 84 Frequency of home oxygen needed: continuous Home oxygen liters per minute: 2 Home oxygen delivery device: nasal cannula Concentrator: Yes E-tanks for mobility and back up: Yes If ordering portable O2, is the patient mobile in the home?: Yes I certify that, based on these findings, the home oxygen is medically necessary for this patient for the following length of time. Length of time home oxygen needed: 1 month
[2017-07-25] MEDS: PSEUDOEPHEDRINE PO SCH (14:34)
[2017-07-25] MEDS: CETIRIZINE HCL PO SCH (14:34)
[2017-07-25] MEDS: TOPIRAMATE PO SCH (14:36)
[2017-07-25] MEDS: AZELASTINE NASAL MDI NS SCH (14:38)
[2017-07-25 15:40] VITALS: BP 136/92
--- NOTE | 2017-07-25 17:15 | SOAPPROG ---
SOAP Progress Note Assessment/Plan: Assessment: Plan: Subjective: states she's ready for home dressing C&D with foot zNVI DC to home Objective: Vital Signs Temp Pulse Resp BP Pulse Ox 36.6 C 93 18 136/92 H 96 07/25/17 15:39 07/25/17 17:02 07/25/17 17:02 07/25/17 15:39 07/25/17 17:02 Laboratory Results 07/24/17 17:00 07/24/17 17:00 07/24/17 07/25/17 07/26/17 05:59 05:59 05:59 Intake Total 200 600 Output Total 1400 2050 250 Balance -1200 -1450 -250 ICD10 Worksheet Patient Problems: Problems Problem Status Onset Abdominal pain Acute Abdominal pain Acute Bladder wall thickening Acute Chest discomfort Acute Chronic pain Acute Feeding tube obstruction Acute Hypokalemia Acute Hypokalemia due to loss of potassium Acute Ileitis Acute Leukocytosis Acute Narcotic dependency, continuous Acute Rectal bleeding Acute Chronic constipation Chronic
--- NOTE | 2017-07-25 17:19 | PDIAF ---
- Diagnosis Code Status: Full Code - Medication Management Discharge Medications: Medications to Continue on Transfer Azelastine HCl 2 spray NS BID 01/14/17 [Last Taken 07/22/17] Cetirizine HCl/Pseudoephedrine [Zyrtec-D Tablet] 1 each PO Q12H 01/14/17 [Last Taken 1 Day Ago ~07/21/17] Fluoxetine HCl [Prozac 40 mg] 40 mg PO DAILY 01/14/17 [Last Taken 1 Day Ago ~] Fluticasone Nasal [Flonase Nasal [place]] 2 sprays NASAL BID 01/14/17 [Last Taken 07/22/17] Gabapentin [Neurontin] 1,200 mg PO HS 01/14/17 [Last Taken 1 Day Ago ~07/21/17] Herbals/Supplements -Info Only 1 ea PO DAILY 01/14/17 [Last Taken 1 Week Ago ~] Lansoprazole 30 mg PO BID 01/14/17 [Last Taken 1 Day Ago ~07/21/17] Oxymetazoline HCl [Afrin Nasal [place]] 2 spray EACHNARE BID PRN 01/14/17 [Last Taken 1 Day Ago ~07/21/17] Potassium Chloride [Klor-Con 10] 10 meq PO BID 01/14/17 [Last Taken 07/22/17] Promethazine HCl [Phenergan 25mg (*)] 25 mg PO BID PRN 01/14/17 [Last Taken 1 Week Ago ~07/15/17] Ranitidine HCl [Zantac] 150 mg PO BID 01/14/17 [Last Taken 1 Day Ago ~07/21/17] SUMAtriptan [Imitrex Sc Injection] 6 mg SQ Q1H PRN 01/14/17 [Last Taken 1 Week Ago ~07/15/17] Sennosides/Docusate Sodium [Senna-S Tablet] 1 each PO BID 01/14/17 [Last Taken 1 Day Ago ~07/21/17] Simethicone [Gas Relief] 80 mg PO ACHS PRN 01/14/17 [Last Taken 1 Day Ago ~07/21] Temazepam [Restoril 15 MG (*)] 15 mg PO HS 01/14/17 [Last Taken 1 Day Ago ~07/21] Tizanidine HCl [Zanaflex] 4 mg PO BID PRN 01/14/17 [Last Taken 1 Day Ago ~] Topiramate [Topamax] 45 mg PO BID 01/14/17 [Last Taken 07/22/17] Valacyclovir HCl [Valtrex] 1,000 mg PO DAILY 01/14/17 [Last Taken 1 Day Ago ~] Tapentadol HCl [Nucynta 50 MG (*)] 50 mg PO TID PRN 07/14/17 [Last Taken ] oxyCODONE/APAP 5/325 [Percocet 5/325 (*)] 1 - 2 tab PO TID PRN 07/14/17 [Last Taken 07/22/17] Tapentadol HCl [Nucynta] 50 mg PO TID MDD 150 07/22/17 [Last Taken 07/22/17] Discharge Medications: Refer to the Discharge Home Medication list for PRN reason. - Orders Services needed: Home Care, Physical Therapy Home Care Face to Face: I certify that this patient was under my care and that I had the required [id number] encounter meeting the encounter requirements on the discharge day. My findings support the fact that the patient is homebound as defined in Home Care Face to Face Continued: CMS Chapter 7 Medicare Benefits Manual 30.1.1 , The condition of the patient is such that there exists a normal inability to leave home and consequently, leaving home would require a considerable and taxing effort. Isolation Type: None Diet Recommendation: no restrictions on diet Diet Texture: Regular Texture Diet Wound Care Instructions: none Sutures/Nick Site: l knee Activity/Weight Bearing Restrictions: wbat Additional Instructions: [facility] [phone] - Follow Up Care Current Providers and Referrals: Nora Farrell MD [Medical Doctor] - Quinn Hooper [Primary Care Provider] -
--- NOTE | 2017-07-25 17:26 | ASMTCMCOM ---
CM Note CM Note Notes: Pt medically stable for d/c with [facility]. Orders sent in [employer]. Pt declined home 02. Pt to transport home. Date Signed: 07/25/2017 05:25 PM Electronically Signed By:ZHANG Vallejo
== END 2017-07-25 18:14 | disposition home or self-care (01) ==
LOC: F3N 05:56
PROVIDERS: ADMIT Orthopaedic Surgery; ATTEND Orthopaedic Surgery
DX: M17.12 Unilateral primary osteoarthritis, left knee (principal); I95.81 Postprocedural hypotension; R09.02 Hypoxemia; G89.4 Chronic pain syndrome; G43.909 Migraine, unspecified, not intractable, without status migrainosus; M79.7 Fibromyalgia; F11.20 Opioid dependence, uncomplicated; Z90.49 Acquired absence of other specified parts of digestive tract; Z98.811 Dental restoration status
CPT/HCPCS: 27447; 36514; 71045; 73560; 97110; 97116; 97161; 97165; G0378; G8978; G8979; G8980; G8987; G8988; G8989; J0171; J0690; J1100; J1170; J1885; J2270; J2405; J2704; J2795; J3010; J3030; J3360; J7613

== ENCOUNTER 2017-08-27 13:36 | Day surgery (SDC) | payer OTHER ==
--- NOTE | 2017-08-24 15:09 | GHP ---
[f rep st] PREOP HISTORY AND PHYSICAL CHIEF COMPLAINT: Left knee wound dehiscence. HISTORY OF PRESENT ILLNESS: The patient is a 62-year-old female who had previously undergone a left total knee replacement approximately 7 weeks ago and has had delayed wound healing with a dry eschar. Given the amount of time since surgery, it was decided to take her to the operating room for formal I and D. DRUG ALLERGIES: Include anti-inflammatories and Toradol. MEDICATIONS: Azelastine, clonazepam, fluoxetine, fluticasone, gabapentin, hydromorphone, modafinil, Nucynta, oxycodone, promethazine, sulfacetamide, sumatriptan, temazepam, tizanidine, topiramate, tramadol, valacyclovir, Zyrtec. PRIOR MEDICAL PROBLEMS: Include anemia, arthritis, migraines, sleep apnea. PRIOR SURGERIES: Include left total knee replacement, left knee scope, prolapse bowel repair, thyroid, gallbladder and TMJ surgery x12. She lists other x2. SOCIAL HISTORY: She has never been a smoker. She does not drink alcohol. PHYSICAL EXAMINATION: EYES: Pupils are equal, round, and reactive to light. CHEST: Clear to auscultation. HEART: Regular rate and rhythm. ABDOMEN: Soft and nontender. SKIN: Left knee reveals a dried eschar around the area of her incisional wound with minimal erythema and no fluctuance noted. ASSESSMENT AND PLAN: The patient is status post left knee wound dehiscence. She had a plan to take her to the operating room to undergo a left knee incision and drainage. /[id number]/MODL MTDD
[~2017-08-27 13:36] MED LIST: ACETAMINOPHEN 500 MG TAB PO ONE; BACITRACIN 50,000 UNITS/10 ML SYR IRR ONE; POLYMYXIN B SULFATE 500,000 UNIT/10 ML SYR IRR ONE; PREGABALIN 150 MG CAP PO ONE; ceFAZolin 2 GM/DEXTROSE 100 ML IV ONE; ceFAZolin 2 GM/SWFI 2 GM/20 ML SYR IVP ONE
[2017-08-27] MEDS ORDERED: LIDOCAINE 1% 2 ML INJ ID PRN (13:49)
[2017-08-27] MEDS ORDERED: LR 1,000 ML IV ONE (13:49)
--- NOTE | 2017-08-27 14:35 | PDANEPAE ---
ANE History of Present Illness i&d infected L TKA ANE Past Medical History - Cardiovascular History Hx Hypertension: No Hx Arrhythmias: No Hx Chest Pain: No Hx Coronary Artery / Peripheral Vascular Disease: No Hx CHF / Valvular Disease: No Hx Palpitations: No - Pulmonary History Hx COPD: No Hx Asthma/Reactive Airway Disease: No Hx Recent Upper Respiratory Infection: Yes Hx Oxygen in Use at Home: No Hx Sleep Apnea: No Sleep Apnea Screening Result - Last Documented: Negative Pulmonary History Comment: PNEUMONIA/BRONCHIECTASIS 12/2016 - Neurologic History Hx Cerebrovascular Accident: No Hx Seizures: No Hx Dementia: No - Endocrine History Hx Diabetes: No - Renal History Hx Renal Disorders: No Renal History Comment: DIFFICULTY WITH URINATION DURING HOSPITAL STAYS. uti's - Liver History Hx Hepatic Disorders: No - Neurological & Psychiatric Hx Hx Neurological and Psychiatric Disorders: Yes Neurological / Psychiatric History Comment: numbness to right hand, depression/ anxiety. botox for BISWAS 09/23 - Cancer History Hx Cancer: No - Congenital Disorder History Hx Congenital Disorders: No - GI History Hx Gastrointestinal Disorders: Yes Gastrointestinal History Comment: GERD - Other Health History Other Health History: anemia. CHRONIC PAIN SYNDROME. ARTHRALGIA OF LT TMJ. OSTEOARTHRITIS. TRIGEMINAL NEURALGIA. LEFT KNEE INCITION - Chronic Pain History Chronic Pain: Yes (neck, jaw. BISWAS. arthris in back, knee.) - Surgical History Prior Surgeries: EGD/COLONOSCOPY. dental implants. bilat tmj titanium jaw implant. parathyroid 2016. left TKA ANE Review of Systems Review of Systems: - Exercise capacity METS (RN): 3 METS ANE Patient History - Allergies Allergies/Adverse Reactions: fentanyl Allergy (Verified 08/27/17 13:54) Other-Enter Comments ketorolac [From Toradol] Allergy (Verified 08/27/17 13:54) Other-Enter Comments pregabalin [From Lyrica] Allergy (Verified 08/27/17 14:11) Swelling/neck,face,throat - Home Medications Home medications: home medication list seen and reviewed Home Medications: Azelastine HCl 01/14/17 [Last Taken 08/27/17 05:30] Cetirizine HCl/Pseudoephedrine [Zyrtec-D Tablet] 01/14/17 [Last Taken 08/27/17 05:30] Fluoxetine HCl [Prozac 40 mg] 01/14/17 [Last Taken 08/27/17 05:30] Fluticasone Nasal [Flonase Nasal [place]] 01/14/17 [Last Taken 08/27/17 05:30] Gabapentin [Neurontin] 01/14/17 [Last Taken 08/26/17 21:00] Herbals/Supplements -Info Only 01/14/17 [Last Taken 08/08/17] Lansoprazole 01/14/17 [Last Taken 08/27/17 05:30] Oxymetazoline HCl [Afrin Nasal [place]] 01/14/17 [Last Taken 08/27/17 05:30] Potassium Chloride [Klor-Con 10] 01/14/17 [Last Taken 08/25/17] Promethazine HCl [Phenergan 25mg (*)] 01/14/17 [Last Taken 08/26/17 09:00] Ranitidine HCl [Zantac] 01/14/17 [Last Taken 08/27/17 05:30] SUMAtriptan [Imitrex Sc Injection] 01/14/17 [Last Taken 08/27/17 05:00] Sennosides/Docusate Sodium [Senna-S Tablet] 01/14/17 [Last Taken 08/25/17] Simethicone [Gas Relief] 01/14/17 [Last Taken 08/26/17] Temazepam [Restoril 15 MG (*)] 01/14/17 [Last Taken 08/26/17 21:00] Tizanidine HCl [Zanaflex] 01/14/17 [Last Taken 08/26/17 19:30] Topiramate [Topamax] 01/14/17 [Last Taken 08/27/17 05:30] Valacyclovir HCl [Valtrex] 01/14/17 [Last Taken 08/26/17] Tapentadol HCl [Nucynta 50 MG (*)] 07/14/17 [Last Taken 08/26/17] oxyCODONE/APAP 5/325 [Percocet 5/325 (*)] 07/14/17 [Last Taken 08/27/17 05:30] Tapentadol HCl [Nucynta] 07/22/17 [Last Taken 08/27/17 05:30] - NPO status NPO Status: no food or drink >8 hours NPO Since - Liquids (Date): 08/26/17 NPO Since - Liquids (Time): 21:00 NPO Since - Solids (Date): 08/26/17 NPO Since - Solids (Time): 15:00 - Anes Hx Anes Hx: no prior problems - Smoking Hx Smoking Status: Never smoked - Alcohol Use Alcohol Use: Rarely - Family Anes Hx Family Anes Hx: none Family Hx Anesthesia Complications: none ANE Labs/Vital Signs - Vital Signs Blood Pressure: 159/95 Heart Rate: 88 Respiratory Rate: 16 O2 Sat (%): 97 Height: 165.1 cm Weight: 58.967 kg ANE Physical Exam - Airway Neck exam: FROM Mallampati Score: Class 2 Mouth exam: poor dentition - Pulmonary Pulmonary: no respiratory distress - Cardiovascular Cardiovascular: regular rate and rhythym - ASA Status ASA Status: II ANE Anesthesia Plan Anesthesia Plan: GA w LMA
[2017-08-27] MEDS ORDERED: MIDAZOLAM 2 MG/2 ML VIAL IVP ONE (14:36)
[2017-08-27] MEDS ORDERED: MIDAZOLAM 2 MG/2 ML VIAL ONE (14:37)
--- NOTE | 2017-08-27 14:39 | PDHPUP ---
History & Physical Update H&P update statement: This history and physical update is based on an assessment of the patient which was completed after admission or registration (within 24 hours), but prior to the surgery/procedure. H&P update: no change in patient's condition since H&P completed
[2017-08-27] MEDS ORDERED: fentaNYL 100 MCG/2 ML INJ ONE ×2 (15:05→16:19)
[2017-08-27] MEDS ORDERED: PROPOFOL/EMULSION 500 MG/50 ML BOTTLE IV ONE (15:05)
[2017-08-27] MEDS ORDERED: DEXAMETHASONE 4 MG/ML VIAL ONE (15:19)
[2017-08-27] MEDS ORDERED: ONDANSETRON 4 MG/2 ML VIAL ONE (15:19)
[2017-08-27] MEDS ORDERED: LIDOCAINE 2% 100 MG/5 ML SYR ONE (15:19)
[2017-08-27] MEDS ORDERED: HYDROCODONE/APAP 5/325 TAB PO PRN (16:02)
[2017-08-27] MEDS ORDERED: PHENYLEPHRINE HCL 100 MCG/ML SYR IVP PRN (16:02)
[2017-08-27] MEDS ORDERED: NALOXONE HCL 0.4 MG/ML INJ IVP PRN (16:02)
[2017-08-27] MEDS ORDERED: ACETAMINOPHEN 500 MG TAB PO PRN (16:02)
[2017-08-27] MEDS ORDERED: LR 500 ML IV PRN (16:02)
[2017-08-27] MEDS ORDERED: oxyCODONE IR 5 MG TAB PO PRN (16:02)
[2017-08-27] MEDS ORDERED: PROMETHAZINE HCL 25 MG/ML INJ IVP PRN (16:02)
[2017-08-27] MEDS ORDERED: DEXAMETHASONE 4 MG/ML VIAL IVP PRN (16:02)
[2017-08-27] MEDS ORDERED: ONDANSETRON 4 MG/2 ML VIAL IVP PRN (16:02)
[2017-08-27] MEDS ORDERED: METOCLOPRAMIDE 10 MG/2 ML VIAL IVP PRN (16:02)
[2017-08-27] MEDS ORDERED: MEPERIDINE 25 MG/0.5 ML AMP IVP PRN (16:02)
[2017-08-27] MEDS ORDERED: ALBUTEROL 3 ML DEYVIAL IH PRN (16:02)
[2017-08-27] MEDS ORDERED: LABETALOL HCL 5 MG/ML 20 ML MDV IVP PRN (16:02)
--- NOTE | 2017-08-27 16:50 | POSTOPPROG ---
Post Op Note Date of Operation: 08/27/17 Surgeon: Nora Farrell Main Line Assembler: Gwendolyn Eng Anesthesia: GET(General Endotracheal) Pre-op Diagnosis: left knee wound dehiscence Post-op Diagnosis: left knee wound dehiscence Procedure: left knee irrigation and debridement Depth: Deep Incisional (Fascial) EBL: Minimal
[2017-08-27] MEDS ORDERED: HYDROmorphONE/DILAUDID 1 MG/ML INJ ONE (17:06)
[2017-08-27] MEDS: HYDROmorphONE/DILAUDID 1 MG/ML INJ IVP PRN ×2 (17:09→17:20)
--- NOTE | 2017-08-27 17:28 | GOP ---
[f rep st] OPERATIVE REPORT DATE OF OPERATION: 08/27/2017 SURGEON: Nora Farrell MD [employer]EEPING [employer] TEAM LEADER: Gwendolyn Eng PA-C, whose presence was medically necessary. ANESTHESIA: LMA. PREOPERATIVE DIAGNOSIS: Left knee wound dehiscence. POSTOPERATIVE DIAGNOSIS: Left knee wound dehiscence. PROCEDURE PERFORMED: Left knee irrigation and debridement with delayed primary closure, as well as a spiration of the knee. FINDINGS: INDICATIONS: This is a 62-year-old female who had previously undergone a left total knee arthroplast y. She states that initially the incision had done well, and then she began to get blistering and th e wound began to split apart. She developed dark eschar over the area of the incision. When it did not resolve within several days, we decided to take her to the operating room to do a formal debridem ent. DESCRIPTION OF PROCEDURE: Patient brought to the operating room after the left side had been identif ied as correct side by the patient, nurse, and physician. Once in the operating room, she was placed under general anesthesia using an LMA. Tourniquet placed around the upper portion of the left thigh , and the left lower extremity sterilely prepped and draped in usual fashion using GSI solution. Onc e prepped and draped, the limb was elevated for 2 minutes in order to create exsanguination. The mark rniquet was then inflated to 250 mmHg. A sterile scrub brush with soapy water was used to scrub the area around the incision, getting some of the more superficial eschar off. Once completed, the darke r and tougher eschar was able to be removed using a scalpel. She was noted to have the extensor mech anism below intact and it did not appear to violate the extensor mechanism. The entire eschar was re moved and the skin edges were debrided until it was fresh bleeding tissue. Further exploration was d one medially by blunt dissection. She was found to have 2 areas. With blunt dissection, was able to make an entrance into the knee itself. 3 L of sterile irrigation was able to be irrigated through t he wound and through the knee itself. Once thoroughly irrigated, the extensor mechanism wound breakd own were sewn, put back together using 0 Vicryl suture in a [id number] type stitch. The skin ed ges were then sealed using 2-0 and 3-0 nylon suture in a vertical mattress type stitch in order to ga in skin apposition but taking pressure off the actual skin edges themselves. Tourniquet was released at 63 minutes. The leg was dressed with Xeroform, 4 x 4's, wrapped in Kerlix. Leg was completely u ndraped in the operating room, tourniquet removed from the thigh, and an Alfonso wrap placed around the k nee. A specimen that had been taken prior to exsanguination was sent to the lab for Gram stain and c ultures and sensitivities. Results were not back by the end of the case. Once completed, the patien t was woken up, extubated, transferred onto a stretcher, and sent to recovery room in good condition. TOURNIQUET TIME: 63 minutes. /[id number]/MODL
[2017-08-27 18:03] VITALS: BP 162/97
== END 2017-08-27 18:03 | disposition home or self-care (01) ==
LOC: FSGY 13:36
PROVIDERS: ATTEND Orthopaedic Surgery
PROC: 0JBP0ZZ Excision of Left Lower Leg Subcutaneous Tissue and Fascia, Open Approach (ICD-10-PCS; principal; 2017-08-27 15:30)
DX: T81.31XA Disruption of external operation (surgical) wound, not elsewhere classified, initial encounter (principal)
CPT/HCPCS: J0690; J1100; J1170; J2001; J2250; J2405; J2704; J3010

== ENCOUNTER 2017-09-10 08:16 | Emergency (ER) | payer OTHER ==
--- NOTE | 2017-09-10 09:06 | EDPHY ---
General Time Seen by Provider: 09/10/17 09:03 Narrative: CHIEF COMPLAINT: Nosebleed HISTORY OF PRESENT ILLNESS: Patient presents with spouse at bedside. She complains of nosebleed that started spontaneously at 4:00 a.m.. She was sleeping when it started awoke because the bleeding. She noted bleeding from both nostrils and was coughing some blood that she felt in the back of throat. She applied pressure but this did not stop, thus she presents here. She states that she thinks the bleeding stops just prior to arrival. She has had no chest pain, shortness of breath, lightheadedness or dizziness. She does not report any bleeding from any other sites. She has been taking aspirin due to recent left knee total arthroplasty with subsequent irrigation debridement. She stop taking aspirin 2 days ago. She does not take any anticoagulants. No other associated complaints or modifying factors MEDICAL/SURGICAL/SOCIAL HISTORY: TMJ, chronic pain, small-bowel obstruction, migraines fibromyalgia, vertigo, arthritis, cluster headaches. Lives independently with her spouse. REVIEW OF SYSTEMS: Ten systems reviewed and are negative unless otherwise noted in the HPI EXAMINATION General Appearance: Alert, no distress Head: normocephalic, atraumatic ENT: Dried blood around both nostrils. There is no active bleeding. No hematoma. No foreign body. There is no bleeding in the posterior pharynx and the airway is widely patent without edema, erythema or exudate. Cardiovascular: Pulses normal throughout with good signs of perfusion. Brisk cap refill Neurological: A&O. No focal deficits. Skin: Warm and dry, no rash. There is a left knee incision consistent with TKA that is clean, dry and intact without dehiscence, surrounding erythema or purulence. Extremities: Left knee in a straight leg immobilizer status post TKA. Range not tested no left lower extremity. DIFFERENTIAL DIAGNOSES: Including but not limited to anterior epistaxis, posterior epistaxis, acute blood-loss, chronic anemia MDM: 9:05 a.m. Bilateral nose bleeds that have stopped prior to my examination. There is no bleeding in the posterior pharynx. No active bleeding anteriorly at this time. The patient does not take anticoagulants, but she was taking aspirin until 2 days ago. Have ordered Afrin to the nostrils and will monitor for rebleeding. Patient's spouse are requesting that we check her hemoglobin as it has been low and she said to surgery recently. 9:55 a.m. Patient re-evaluated. She has had a nose clip in place for 30 min with Afrin and will remove it at this time. No bleeding in the posterior pharynx. No bleeding from the nostrils. CBC pending. 10:20 a.m. CBC is unremarkable. Patient re-evaluated. No bleeding from either nostril. No bleeding in posterior pharynx. Her CBC reveals were discussed. I do not feel she warrants any prophylactic packing at this time as she does not take any anticoagulants, she has not been bleeding for nearly 2 hr. We discuss Afrin and nose clamp should she began bleeding home, and then presenting here at the bleeding does not stop within 30 min. We discussed follow up with primary care physician and ENT physician. She is comfortable this plan and discharged home stable condition SUPERVISION: This patient was independently evaluated without direct involvement of or examination by the attending physician. ED Precautions: Worsening pain. Erythema, edema, cyanosis, pallor, paresthesia or anesthesia. - History Smoking Status: Never smoked - Objective Vital Signs: Initial Vital Signs Temperature (C) 98.6 F 09/10/17 08:25 Heart Rate 92 09/10/17 08:25 Respiratory Rate 16 09/10/17 08:25 Blood Pressure 178/110 H 09/10/17 08:25 O2 Sat (%) 94 09/10/17 08:25 O2 Delivery Mode Room Air Allergies/Adverse Reactions: fentanyl Allergy (Verified 08/27/17 13:54) Other-Enter Comments ketorolac [From Toradol] Allergy (Verified 08/27/17 13:54) Other-Enter Comments pregabalin [From Lyrica] Allergy (Verified 08/27/17 14:11) Swelling/neck,face,throat Home Medications: Medication Instructions Recorded Azelastine HCl 01/14/17 Cetirizine HCl/Pseudoephedrine 01/14/17 [Zyrtec-D Tablet] Fluoxetine HCl [Prozac 40 mg] 01/14/17 Fluticasone Nasal [Flonase Nasal 01/14/17 [place]] Gabapentin [Neurontin] 01/14/17 Herbals/Supplements -Info Only 01/14/17 Lansoprazole 01/14/17 Oxymetazoline HCl [Afrin Nasal 01/14/17 [place]] Potassium Chloride [Klor-Con 10] 01/14/17 Promethazine HCl [Phenergan 25mg 01/14/17 (*)] Ranitidine HCl [Zantac] 01/14/17 SUMAtriptan [Imitrex Sc Injection] 01/14/17 Sennosides/Docusate Sodium 01/14/17 [Senna-S Tablet] Simethicone [Gas Relief] 01/14/17 Temazepam [Restoril 15 MG (*)] 01/14/17 Tizanidine HCl [Zanaflex] 01/14/17 Topiramate [Topamax] 01/14/17 Valacyclovir HCl [Valtrex] 01/14/17 Tapentadol HCl [Nucynta 50 MG (*)] 07/14/17 oxyCODONE/APAP 5/325 [Percocet 07/14/17 5/325 (*)] Tapentadol HCl [Nucynta] 07/22/17 Laboratory Results: Laboratory Results 09/10/17 10:05 09/10/17 10:05 WBC 7.84 10^3/uL 10^3/uL (3.80-9.50) RBC 4.82 10^6/uL 10^6/uL (4.18-5.33) Hgb 13.3 g/dL g/dL (12.6-16.3) Hct 42.0 % % (38.0-47.0) MCV 87.1 fL fL (81.5-99.8) MCH 27.6 pg L pg (27.9-34.1) MCHC 31.7 g/dL L g/dL (32.4-36.7) RDW 14.4 % % (11.5-15.2) Plt Count 341 10^3/uL 10^3/uL (150-400) Medications Given: Discontinued Medications Oxymetazoline HCl (Afrin Nasal [place]) 2 sprays EACHNARE EDNOW ONE Stop: 09/10/17 09:18 Last Admin: 09/10/17 09:19 Dose: 4 spray Departure - Departure Disposition: Home, Routine, Self-Care Clinical Impression: Anterior epistaxis Condition: Good Instructions: Oxymetazoline (Into the nose), Nosebleed (ED) Additional Instructions: 1. Rest, head of bed elevation and avoid picking or blowing nose 2. Contact ENT physician on-call as provided 3. Should you have return of nosebleed, administer Afrin and apply clamp to nose. Wait 30 min. If bleeding does not stop, return to emergency department Referrals: Quinn Hooper [Primary Care Provider] - As per Instructions Giorgi Null MD [Medical Doctor] - As per Instructions
[2017-09-10] MEDS ORDERED: OXYMETAZOLINE 30 ML NASAL SPRAY ONE (09:17)
[2017-09-10] MEDS ORDERED: OXYMETAZOLINE 30 ML NASAL SPRAY EACHNARE ONE (09:17)
[2017-09-10 10:46] VITALS: BP 167/114
== END 2017-09-10 10:58 | disposition home or self-care (01) ==
DX: R04.0 Epistaxis (principal)

== ENCOUNTER 2017-11-23 04:26 | Inpatient (IN) | payer OTHER ==
--- NOTE | 2017-11-23 04:29 | EDPHY ---
H & P Time Seen by Provider: 11/23/17 04:29 HPI/ROS: HPI CHIEF COMPLAINT: Abdominal pain. HISTORY OF PRESENT ILLNESS: 62-year-old female, history of chronic opioid use chronic opiate dependency, chronic abdominal pain, presents emergency room with abdominal pain by EMS. States she has had worsening abdominal pain over the last 24 hr with associated nausea constipation. Took an enema they gave her some relief. No fever. Denies chest pain or shortness of breath. Main complaint upper abdominal pain. Currently 08/17. Past Medical History: Chronic abdominal pain on chronic opioids anemia, bowel obstruction, constipation Past Surgical History: Multiple abdominal surgeries include sigmoid colectomy, intra-abdominal bleed Social History: Denies drugs alcohol tobacco. Family History: Noncontributory ROS REVIEW OF SYSTEMS: 10 Systems were reviewed and negative with the exception of the elements mentioned in the history of present illness. Exam Constitutional triage nursing summary reviewed, vital signs reviewed, awake/ alert. Eyes normal conjunctivae and sclera, EOMI, PERRLA. HENT normal inspection, atraumatic, moist mucus membranes, no epistaxis, neck supple/ no meningismus, no raccoon eyes. Respiratory clear to auscultation bilaterally, normal breath sounds, no respiratory distress, no wheezing. Cardiovascular rate normal, regular rhythm, no murmur, no edema, distal pulses normal. Gastrointestinal mild tender palpation mid abdomen and right upper quadrant, hypoactive bowel sounds, not peritoneal no rebound, no guarding, normal bowel sounds, no distension, no pulsatile mass. Genitourinary no CVA tenderness. Musculoskeletal no midline vertebral tenderness, full range of motion, no calf swelling, no tenderness of extremities, no meningismus, good pulses, neurovascularly intact. Skin pink, warm, & dry, no rash, skin atraumatic. Neurologic awake, alert and oriented x 3, AAOx3, moves all 4 extremities equally, motor intact, sensory intact, CN II-XII intact, normal cerebellar, normal vision, normal speech. Psychiatric normal mood/affect. Heme/Lymph/Immune no lymphadenopathy. Differential diagnosis includes but is not limited to and in no particular order : Bowel obstruction, appendicitis, gallbladder disease, diverticulitis, colitis , enteritis, perforated viscus, gastritis, GERD, esophagitis, urinary tract infection, pyelonephritis, kidney stones Medical Decision Making: Plan for this patient IV establishment with IV fluid bolus IV Zofran as needed for nausea, KUB to rule out abnormal bowel gas pattern , blood work, and re-evaluate. Re-evaluation: CT scan abdomen pelvis with IV contrast shows evidence of bowel obstruction. High-grade. Mid jejunum. I will consult her surgeon Dr. Smith. Patient will need NG tube as she has significant dilation of her stomach. Patient will additionally need to be admitted to the hospital. Reason for admission high-grade SBO. 0652AM: Patient has a high-grade SBO. I spoke with Dr. Smith her surgeon, who will consult the patient request the patient be admitted to Medicine Service. I will consult hospitalist service for admission. Additionally NG tube will be placed. Updated patient. She is agrees with this treatment plan. Please see full dictation of the CT scan for details. Spoke with Dr. Bang, agrees to admit the patient for SB O. NG to be placed in the ER. Source: Patient, EMS - Personal History Tetanus Vaccine Date: 5 YEARS [employer] - Medical/Surgical History Hx Asthma: No Hx Chronic Respiratory Disease: No Hx Diabetes: No Hx Cardiac Disease: No Hx Renal Disease: No Hx Cirrhosis: No Hx Alcoholism: No Hx HIV/AIDS: No Hx Splenectomy or Spleen Trauma: No Other PMH: VAGINAL HERPES, BREAST IMPLANTS, DENTAL SURGERY, TMJ,COLON SURGERY, CHRONIC PAIN, SBO, MIGRAINES, FIBRYOMALGIA, VERTIGO, ARTHRITIS NECK, AND LEFT KNEE, SIATIC NERVE PAIN, CLUSTER HEADACHES - Social History Smoking Status: Never smoked Constitutional: Initial Vital Signs Temperature (C) 36.7 C 11/23/17 04:32 Heart Rate 84 11/23/17 04:32 Respiratory Rate 18 11/23/17 04:32 Blood Pressure 188/110 H 11/23/17 04:32 O2 Sat (%) 92 11/23/17 04:32 O2 Delivery Mode Nasal Cann[place] O2 (L/minute) 2 Allergies/Adverse Reactions: fentanyl Allergy (Verified 11/23/17 08:02) Other-Enter Comments ketorolac [From Toradol] Allergy (Verified 11/23/17 08:02) Other-Enter Comments pregabalin [From Lyrica] Allergy (Verified 11/23/17 08:02) Swelling/neck,face,throat Home Medications: Medication Instructions Recorded Azelastine HCl 2 sprays EACHNARE BID 01/14/17 Cetirizine HCl/Pseudoephedrine 1 each PO BID 01/14/17 [Zyrtec-D Tablet] Fluoxetine HCl [Prozac 40 mg] 40 mg PO DAILY 01/14/17 Fluticasone Nasal [Flonase Nasal 1 spray EACHNARE BID 01/14/17 [place]] Gabapentin [Neurontin] 1,200 - 1,800 mg PO HS 01/14/17 Oxymetazoline HCl [Afrin Nasal 1 spray EACHNARE DAILY PRN 01/14/17 [place]] Potassium Chloride [Klor-Con 10] 10 meq PO BID 01/14/17 Ranitidine HCl [Zantac] 150 mg PO BID 01/14/17 SUMAtriptan [Imitrex Sc Injection] 6 mg SQ DAILY PRN 01/14/17 Sennosides/Docusate Sodium 1 each PO DAILY PRN 01/14/17 [Senna-S Tablet] Simethicone [Gas Relief] 80 mg PO PRN PRN 01/14/17 Temazepam [Restoril 15 MG (*)] 15 mg PO HS 01/14/17 Tizanidine HCl [Zanaflex] 4 mg PO HS 01/14/17 Topiramate [Topamax] 3 - 4 cap PO HS 01/14/17 Valacyclovir HCl [Valtrex] 1,000 mg PO DAILY 01/14/17 Tapentadol HCl [Nucynta] 100 mg PO TID PRN 07/22/17 Lansoprazole [Prevacid] 30 mg PO BID 11/23/17 Promethazine HCl [Phenergan 12.5mg 12.5 mg PO BID PRN 11/23/17 tab] Topiramate [TOPIRAMATE] 3 cap PO DAILY 11/23/17 clonazePAM [klonoPIN (*)] 1 mg PO BID 11/23/17 oxyCODONE HCL [Oxycontin] 10 mg PO TID 11/23/17 Medical Decision Making - Data Points Laboratory Results: Laboratory Results 11/23/17 05:00 11/23/17 05:00 Medications Given: Azelastine HCl (Astelin) 2 sprays EACHNARE BID [facility] Stop: 05/22/18 08:59 Last Admin: 11/23/17 21:18 Dose: Not Given Fluticasone Propionate (Flonase Nasal [place]) 1 sprays EACHNARE BID [facility] Stop: 05/22/18 08:59 Last Admin: 11/23/17 21:18 Dose: Not Given Sodium Chloride (Ns) 1,000 mls @ 75 mls/hr IV CONT JAMES Stop: 05/22/18 07:29 Last Admin: 11/23/17 21:27 Dose: 1,000 mls Ketorolac Tromethamine (Toradol) 15 mg IVP Q6HRS PRN PRN Reason: Headache Stop: 11/28/17 11:59 Last Admin: 11/23/17 10:32 Dose: 15 mg Lorazepam (Ativan Injection) 0.5 mg IVP BID [facility] Stop: 05/22/18 08:59 Last Admin: 11/23/17 21:13 Dose: 0.5 mg Pantoprazole Sodium (Protonix) 40 mg IVP DAILY [facility] Stop: 05/22/18 08:59 Last Admin: 11/23/17 09:41 Dose: 40 mg Promethazine HCl (Phenergan) 6.25 - 12.5 mg IVP Q6HRS PRN PRN Reason: Nausea/Vomiting or headache Stop: 05/22/18 07:17 Last Admin: 11/24/17 03:09 Dose: 12.5 mg Discontinued Medications Hydromorphone HCl (Dilaudid) 0.5 mg IVP EDNOW ONE Stop: 11/23/17 06:10 Last Admin: 11/23/17 06:19 Dose: 0.5 mg Sodium Chloride (Ns) 1,000 mls @ 0 mls/hr IV EDNOW ONE; Wide Open PRN Reason: Protocol Stop: 11/23/17 04:41 Last Admin: 11/23/17 05:47 Dose: 1,000 mls Lorazepam (Ativan Injection) 0.5 - 1 mg IVP Q8HRS PRN PRN Reason: Anxiety, Unable to Take PO Stop: 05/22/18 07:17 Last Admin: 11/23/17 07:49 Dose: 1 mg Ondansetron HCl (Zofran) 4 mg IVP EDNOW ONE Stop: 11/23/17 06:10 Last Admin: 11/23/17 06:20 Dose: 4 mg Oxymetazoline HCl (Afrin Nasal [place]) 2 sprays EACHNARE ONCE ONE Stop: 11/23/17 08:45 Last Admin: 11/23/17 09:43 Dose: Not Given Departure - Departure Disposition: [facility] Clinical Impression: SBO (small bowel obstruction) Condition: Fair
[2017-11-23] MEDS ORDERED: NS 1,000 ML IV ONE (04:40)
[2017-11-23] MEDS ORDERED: IOPAMIDOL (ISOVUE-300) 100 ML BTL ONE (04:53)
[2017-11-23 05:39] LABS: PLATELET COUNT 282 10^3/uL (150-400)
[2017-11-23] MEDS ORDERED: ONDANSETRON 4 MG/2 ML VIAL IVP ONE (06:09)
[2017-11-23] MEDS ORDERED: HYDROmorphONE/DILAUDID 2 MG/ML INJ IVP ONE (06:09)
[2017-11-23 06:12] LABS: INR 1.08 (0.83-1.16); PROTIME(PATIENT) 14.2 SEC (12.0-15.0)
[2017-11-23] MEDS ORDERED: ACETAMINOPHEN 325 MG TAB PO PRN (07:18)
[2017-11-23] MEDS ORDERED: LORazepam 2 MG/ML INJ IVP PRN (07:18)
[2017-11-23] MEDS ORDERED: ONDANSETRON 4 MG/2 ML VIAL IVP PRN (07:18)
[2017-11-23] MEDS ORDERED: LIDOCAINE 2% JELLY 5 ML TUBE ONE (07:34)
[2017-11-23] MEDS: PROMETHAZINE HCL 25 MG/ML INJ IVP PRN ×3 (07:48→21:14)
--- NOTE | 2017-11-23 08:25 | PDGENHP ---
History and Physical - Chief Complaint abdominal pain - History of Present Illness 62 yo female with h/o crohn's s/p sigmoid colectomy 2014, presents to ED with abdominal pain, N/V. Her symptoms started yesterday with crampy abdominal pain. She took a fleet's enema and then fell asleep, woke up wet with watery stool. She began to vomit yesterday, no hematemesis or coffee ground emesis. She is not on medication for crohn's at this time. She also c/o headache, which is chronic and has been present or >2 weeks. In the ED, CT showed SBO at mid-jejunum. NG tube placement attempted but they were unable to pass it beyond nose due to bleeding. She is not on blood thinners, but notes chronic nasal issues and has previously been referred to ENT. Her surgeon, Dr. David Smith was notified and she is admitted for further management. History Information - Allergies/Home Medication List Allergies/Adverse Reactions: fentanyl Allergy (Verified 11/23/17 08:02) Other-Enter Comments ketorolac [From Toradol] Allergy (Verified 11/23/17 08:02) Other-Enter Comments pregabalin [From Lyrica] Allergy (Verified 11/23/17 08:02) Swelling/neck,face,throat Home Medications: Azelastine HCl 2 sprays EACHNARE BID 01/14/17 [Last Taken 08/27/17 05:30] Cetirizine HCl/Pseudoephedrine [Zyrtec-D Tablet] 1 each PO BID 01/14/17 [Last Taken 11/22/17] Fluoxetine HCl [Prozac 40 mg] 40 mg PO DAILY 01/14/17 [Last Taken 11/22/17] Fluticasone Nasal [Flonase Nasal [place]] 1 spray EACHNARE BID 01/14/17 [Last Taken 08/27/17 05:30] Gabapentin [Neurontin] 1,200 - 1,800 mg PO HS 01/14/17 [Last Taken 11/22/17] Oxymetazoline HCl [Afrin Nasal [place]] 1 spray EACHNARE DAILY PRN 01/14/17 [Last Taken 08/27/17 05:30] Potassium Chloride [Klor-Con 10] 10 meq PO BID 01/14/17 [Last Taken 11/22/17] Ranitidine HCl [Zantac] 150 mg PO BID 01/14/17 [Last Taken 11/22/17] SUMAtriptan [Imitrex Sc Injection] 6 mg SQ DAILY PRN 01/14/17 [Last Taken 05:00] Sennosides/Docusate Sodium [Senna-S Tablet] 1 each PO DAILY PRN 01/14/17 [Last Taken 08/25/17] Simethicone [Gas Relief] 80 mg PO PRN PRN 01/14/17 [Last Taken 11/22/17] Temazepam [Restoril 15 MG (*)] 15 mg PO HS 01/14/17 [Last Taken 11/22/17] Tizanidine HCl [Zanaflex] 4 mg PO HS 01/14/17 [Last Taken 11/22/17] Topiramate [Topamax] 3 - 4 cap PO HS 01/14/17 [Last Taken 11/22/17] Valacyclovir HCl [Valtrex] 1,000 mg PO DAILY 01/14/17 [Last Taken 11/22/17] Tapentadol HCl [Nucynta] 100 mg PO TID PRN 07/22/17 [Last Taken 08/27/17 05:30] Lansoprazole [Prevacid] 30 mg PO BID 11/23/17 [Last Taken 11/22/17] Promethazine HCl [Phenergan 12.5mg tab] 12.5 mg PO BID PRN 11/23/17 [Last Taken Unknown] Topiramate [TOPIRAMATE] 3 cap PO DAILY 11/23/17 [Last Taken 11/22/17] clonazePAM [klonoPIN (*)] 1 mg PO BID 11/23/17 [Last Taken 11/22/17] oxyCODONE HCL [Oxycontin] 10 mg PO TID 11/23/17 [Last Taken 11/22/17] I have personally reviewed and updated: family history, medical history, social history, surgical history - Past Medical History fibromyalgia Additional medical history: Trigeminal neuralgia. Chronic headaches (Migraines , Clusters). Chronic abdominal pain w/ continuous opiate dependency. Anxiety w / chronic benzo dependency. Spontaneous Retroperitoneal Hemorrhage 2014. Hyperparathyroidism. Labryhthitis/Vertigo. Recent treatment for possible crohn 's disease - Surgical History Additional surgical history: 2015 Abd exploration for RP hemorrhage. Sigmoid colectomy for rectal prolapse. Breast augmentation. CCY. Bilateral knees. Bladder Suspension. Hyst w/ BSO - Family History Additional family history: Father colon cancer, Grandmother w/ stomach cancer, Mother lung cancer - Social History Smoking Status: Never smoked Additional social history: independent w/ ADLs Review of Systems Review of Systems: ROS: 10pt was reviewed & negative except for what was stated in HPI & below Physical Exam Physical Exam: Temp Pulse Resp BP Pulse Ox 36.7 C 89 16 136/90 H 94 11/23/17 04:32 11/23/17 07:53 11/23/17 07:53 11/23/17 07:53 11/23/17 07:53 O2 (L/minute) 4 Lab Data & Imaging Review 11/23/17 05:00 11/23/17 05:00 WBC 11.45 10^3/uL (3.80-9.50) H 11/23/17 05:00 RBC 5.71 10^6/uL (4.18-5.33) H 11/23/17 05:00 Hgb 14.3 g/dL (12.6-16.3) 11/23/17 05:00 Hct 45.5 % (38.0-47.0) 11/23/17 05:00 MCV 79.7 fL (81.5-99.8) L 11/23/17 05:00 MCH 25.0 pg (27.9-34.1) L 11/23/17 05:00 MCHC 31.4 g/dL (32.4-36.7) L 11/23/17 05:00 RDW 16.0 % (11.5-15.2) H 11/23/17 05:00 Plt Count 282 10^3/uL (150-400) 11/23/17 05:00 MPV 11.3 fL (8.7-11.7) 11/23/17 05:00 Neut % (Auto) 91.1 % (39.3-74.2) H 11/23/17 05:00 Lymph % (Auto) 6.0 % (15.0-45.0) L 11/23/17 05:00 Ritchie % (Auto) 2.4 % (4.5-13.0) L 11/23/17 05:00 Eos % (Auto) 0.0 % (0.6-7.6) L 11/23/17 05:00 Baso % (Auto) 0.2 % (0.3-1.7) L 11/23/17 05:00 Nucleat RBC Rel Count 0.0 % (0.0-0.2) 11/23/17 05:00 Absolute Neuts (auto) 10.42 10^3/uL (1.70-6.50) H 11/23/17 05:00 Absolute Lymphs (auto) 0.69 10^3/uL (1.00-3.00) L 11/23/17 05:00 Absolute Monos (auto) 0.28 10^3/uL (0.30-0.80) L 11/23/17 05:00 Absolute Eos (auto) 0.00 10^3/uL (0.03-0.40) L 11/23/17 05:00 Absolute Basos (auto) 0.02 10^3/uL (0.02-0.10) 11/23/17 05:00 Absolute Nucleated RBC 0.00 10^3/uL (0-0.01) 11/23/17 05:00 Immature Gran % 0.3 % (0.0-1.1) 11/23/17 05:00 Immature Gran # 0.04 10^3/uL (0.00-0.10) 11/23/17 05:00 PT 14.2 SEC (12.0-15.0) 11/23/17 05:45 INR 1.08 (0.83-1.16) 11/23/17 05:45 APTT 26.3 SEC (23.0-38.0) 11/23/17 05:45 VBG Lactic Acid 1.0 mmol/L (0.7-2.1) 11/23/17 05:45 Sodium 139 mEq/L (135-145) 11/23/17 05:00 Potassium 3.9 mEq/L (3.3-5.0) 11/23/17 05:00 Chloride 101 mEq/L (97-110) 11/23/17 05:00 Carbon Dioxide 22 mEq/l (22-31) 11/23/17 05:00 Anion Gap 16 mEq/L (8-16) 11/23/17 05:00 BUN 31 mg/dL (7-23) H 11/23/17 05:00 Creatinine 0.5 mg/dL (0.6-1.0) L 11/23/17 05:00 Estimated GFR > 60 11/23/17 05:00 Glucose 140 mg/dL (70-100) H 11/23/17 05:00 Calcium 9.4 mg/dL (8.5-10.4) 11/23/17 05:00 Total Bilirubin 0.7 mg/dL (0.1-1.4) 11/23/17 05:00 Conjugated Bilirubin 0.4 mg/dL (0.0-0.5) 11/23/17 05:00 Unconjugated Bilirubin 0.3 mg/dL (0.0-1.1) 11/23/17 05:00 AST 47 IU/L (14-46) H 11/23/17 05:00 ALT 12 IU/L (9-52) 11/23/17 05:00 Alkaline Phosphatase 115 IU/L (38-126) 11/23/17 05:00 Total Protein 7.9 g/dL (6.3-8.2) 11/23/17 05:00 Albumin 4.4 g/dL (3.5-5.0) 11/23/17 05:00 Lipase 66 IU/L (23-300) 11/23/17 05:00 Assessment & Plan Assessment: SBO (small bowel obstruction) (Acute) - ED unable to pass NG tube 2/2 bleeding from nose. Notified surgery. Plan for pain control, conservative management for now. Crohn's disease s/p sigmoid colectomy in 2014 - not currently on tx Bibasilar infiltrates - these were present on 05/2017 CT. New cough reported over past 3 days, no fevers. -since this is a chronic picture, will defer atbx for now, send PCT Chronic headaches - on preventive therapy with topamax, gabapentin, prn imitrex -holding po meds due to sbo -prn iv toradol, phenergan, benadryl Anxiety with chronic bzd dependence - IV ativan BID while NPO GERD - IV PPI Full code Dispo - inpt, anticipate >48 hrs hospitalization
[2017-11-23] MEDS ORDERED: OXYMETAZOLINE 30 ML NASAL SPRAY EACHNARE ONE (08:44)
[2017-11-23] MEDS ORDERED: KETOROLAC 15 MG/1 ML SDV IVP PRN (09:34)
[2017-11-23] MEDS: LORazepam 2 MG/ML INJ IVP SCH ×2 (09:41→21:13)
[2017-11-23] MEDS: PANTOPRAZOLE SODIUM 40 MG VIAL IVP SCH (09:41)
[2017-11-23] MEDS: NS 1,000 ML IV SCH ×2 (09:42→21:27)
[2017-11-23] MEDS: AZELASTINE NASAL MDI EACHNARE SCH ×2 (09:43→21:18)
[2017-11-23] MEDS: FLUTICASONE NASAL 120 SPRAYS/16 GM MDI EACHNARE SCH ×2 (09:43→21:18)
--- NOTE | 2017-11-23 11:12 | PDMN ---
Medical Necessity Medical necessity: Pt meets inpt criteria per MD order and MCG M-210, Intestinal Obstruction, 2 days. 62 y/o presented to ED w/abd pain, nausea and vomiting. Abd x-ray and abd CT confirm sm bowel obstruction. Hx of Crohn's s/p sigmoid colectomy 2014, anxiety, chronic headaches, GERD. Anticipate>2MN for further eval/treatment.
--- NOTE | 2017-11-23 15:22 | GCON ---
CHIEF COMPLAINT: Abdominal pain. HPI: 62-year-old female, well known to our practice, who presented to the ED early this morning for complaint of mid abdominal pain. States her abdominal pain was onset yesterday, and she had nausea and vomiting throughout the night. She used a Fleet enema last night with watery stool afterwards. No hematemesis or coffee grounds emesis. No hematochezia. She states her bowel movements have been irregular for the past several months. Last bowel movement was 2 days ago. She last ate yesterday morning. Additionally, she complains of a headache today, which she has a history of migraines. No shortness of breath, chest pain, urinary complaints, lightheadedness, dizziness. She has had several episodes of small bowel obstruction in the past, which have all resolved with bowel decompression and conservative treatment. Abdominal x-ray and CT done in the emergency department revealed a mid jejunal small bowel obstruction. She was admitted to medical service for further evaluation. PAST MEDICAL HISTORY: Crohn disease, chronic pain syndrome, chronic opioid use , headaches, retroperitoneal bleed, anxiety, acute hypoxemic respiratory failure , migraine, fatigue, pneumonia, postop ileus, shingles, sepsis, and small bowel obstruction. ALLERGIES: Fentanyl, ketorolac, and pregabalin. CURRENT HOME MEDICATION: Afrin nasal spray, Zyrtec, OxyContin, Klonopin, Neurontin, Flonase nasal spray, Prozac, Prevacid, Phenergan, Klor-Con, Zantac, Imitrex, simethicone, senna, Zanaflex, Restoril, Tapentadol, Topamax, Valtrex, and Azelastine. SOCIAL HISTORY: Nonsmoker. No alcohol. No recreational drugs. SURGICAL HISTORY: Sigmoid colectomy, cholecystectomy, bladder suspension, breast reconstruction, hysterectomy, knee surgery, exploratory laparotomy, lysis of adhesions, ligation of mesenteric bleeder, and subtotal parathyroidectomy. FAMILY HISTORY: Noncontributory. HOSPITALIZATIONS: [facility] for retroperitoneal hemorrhage, December 2014, and [facility] for primary hyperparathyroidism, July 2015. REVIEW OF SYSTEMS: A 12-point review of system was reviewed and otherwise negative as above. PHYSICAL EXAM: GENERAL: Appears comfortable. Alert and oriented x3. No acute distress. HEENT: Anicteric. NECK: No lymphadenopathy. HEART: Regular rate and rhythm without murmurs. LUNGS: Left basilar crackles, otherwise clear to auscultation bilaterally. ABDOMEN: Soft, distended. Periumbilical tenderness. Well-healed midline laparotomy. No hernias. No masses. No rebound or guarding. NEUROLOGIC: Nonfocal. SKIN: Normal. EXTREMITIES: Unremarkable. ASSESSMENT: Small bowel obstruction. PLAN: NG tube was placed in right nostril during visit and left to wall suction. This immediately relieved her symptoms of nausea and provided mild relief of her abdominal pain. Clear diet. Continue with bowel decompression and IV fluids at this time. Will revisit tomorrow and consider NG tube clamp. ADDENDUM: Care plan discussed with PA earlier in day. Patient seen later in evening. Imaging reviewed on PACS. Large feculent drainage in NG - patient feeling much better after placement. Abd soft, nontender. Adhesive SBO - cont drainage and IVF. Repeat imaging in am. /[id number]/MODL MTDD
[2017-11-24] MEDS: PROMETHAZINE HCL 25 MG/ML INJ IVP PRN ×3 (03:09→16:37)
[2017-11-24 05:05] LABS: PLATELET COUNT 243 10^3/uL (150-400)
[2017-11-24] MEDS: NS 1,000 ML IV SCH (08:04)
[2017-11-24] MEDS: PANTOPRAZOLE SODIUM 40 MG VIAL IVP SCH (09:40)
[2017-11-24] MEDS: FLUTICASONE NASAL 120 SPRAYS/16 GM MDI EACHNARE SCH ×3 (09:41→22:19)
[2017-11-24] MEDS: AZELASTINE NASAL MDI EACHNARE SCH ×3 (09:41→22:18)
--- NOTE | 2017-11-24 09:45 | HOSPPROG ---
Hospitalist Progress Note Assessment/Plan: SBO (small bowel obstruction) (Acute) - NG tube has helped, exam much improved today, less distended, has had BM. -SBFT today -consider clamping NG, will await surgery recs Crohn's disease s/p sigmoid colectomy in 2014 - not currently on tx Bibasilar infiltrates - these were present on 05/2017 CT. New cough reported over past 3 days, no fevers. WBCs normal off atbx. -CXR this am pers reviewed/interp, bibasilar infiltrates appear linear, ? atelectatic -since this is a chronic picture, will defer atbx for now, send PCT- neg AHRF - suspect this is due to GI process and decreased diaphragmatic excursion / atelectasis -wean O2 as able Chronic headaches - on preventive therapy with topamax, gabapentin, prn imitrex -holding po meds due to sbo -prn iv toradol, phenergan, benadryl Anxiety with chronic bzd dependence - IV ativan BID while NPO GERD - IV PPI Full code Dispo - cont inpt Subjective: Pt feels a bit better today, NG tube uncomfortable, but less abdominal pain and distention. No cough or fevers. No CP or SOB. Objective: Vital Signs Temp Pulse Resp BP Pulse Ox 36.8 C 86 18 134/83 H 97 11/24/17 08:18 11/24/17 08:18 11/24/17 08:18 11/24/17 08:18 11/24/17 08:18 Laboratory Results 11/24/17 04:00 11/24/17 04:00 11/23/17 11/24/17 11/25/17 05:59 05:59 05:59 Intake Total 1935 Output Total 1400 200 Balance 535 -200 PT 14.2 SEC (12.0-15.0) 11/23/17 05:45 INR 1.08 (0.83-1.16) 11/23/17 05:45 - Physical Exam Constitutional: no apparent distress Eyes: PERRL Ears, Nose, Mouth, Throat: moist mucous membranes Cardiovascular: regular rate and rhythym Respiratory: no respiratory distress, reduced air movement Gastrointestinal: normoactive bowel sounds, soft, non-tender abdomen Skin: warm Musculoskeletal: full muscle strength Neurologic: AAOx3 Psychiatric: interacting appropriately ICD10 Worksheet Patient Problems: Problems Problem Status Onset SBO (small bowel obstruction) Acute Abdominal pain Acute Abdominal pain Acute Bladder wall thickening Acute Chest discomfort Acute Chronic pain Acute Feeding tube obstruction Acute Hypokalemia Acute Hypokalemia due to loss of potassium Acute Ileitis Acute Leukocytosis Acute Narcotic dependency, continuous Acute Rectal bleeding Acute Chronic constipation Chronic
--- NOTE | 2017-11-24 10:59 | SOAPPROG ---
<ChristianoDenae otero - Last Filed: 11/24/17 10:56> SOAP Progress Note Assessment/Plan: Assessment/Plan: Overall improved as compared to yesterday. Abdominal x-rays reviewed. Recommend gastrografin challenge as she is still mildly symptomatic today. Continue NGT on wall suction with flush q shift. Clear fluids. 11/24/17 11:10 Subjective: Abdominal pain improved since NGT placement. She has had onset of mid-RLQ abdominal pain since this morning. She was off wall suction since her imaging this am. Reports incontinent of watery stool this am. No flatus. Abdominal bloating improving. No nausea or emesis. No urinary complaints. Continues to have headache and mild shortness of breath. Objective: Vital Signs Temp Pulse Resp BP Pulse Ox 36.8 C 86 18 134/83 H 97 11/24/17 08:18 11/24/17 08:18 11/24/17 08:18 11/24/17 08:18 11/24/17 08:18 Laboratory Results 11/24/17 04:00 11/24/17 04:00 11/23/17 11/24/17 11/25/17 05:59 05:59 05:59 Intake Total 1935 Output Total 1400 200 Balance 535 -200 PT 14.2 SEC (12.0-15.0) 11/23/17 05:45 INR 1.08 (0.83-1.16) 11/23/17 05:45 Physical Exam: Gen: appears comfortable, afebrile HEENT: anicteric, NG tube in right nostril at 56cm Skin: normal Heart: RRR Lungs: bibasilar crackles, no wheeze Abdomen: soft, improving distension, mild bilateral low abdominal pain. 200cc NG drainage overnight, more brown/clear today. Good anal sphincter tone. Neuro: nonfocal Extremities: unremarkable, no edema ICD10 Worksheet Patient Problems: Problems Problem Status Onset SBO (small bowel obstruction) Acute Abdominal pain Acute Abdominal pain Acute Bladder wall thickening Acute Chest discomfort Acute Chronic pain Acute Feeding tube obstruction Acute Hypokalemia Acute Hypokalemia due to loss of potassium Acute Ileitis Acute Leukocytosis Acute Narcotic dependency, continuous Acute Rectal bleeding Acute Chronic constipation Chronic <Iván Smith - Last Filed: 11/24/17 18:37> SOAP Progress Note Assessment/Plan: Assessment: Plan: Subjective: Patient seen on evening rounds. Excellent progress. Gastrograffin with promp colon emptying - imaging directly reviewed in PACS. No further pain. NG removed. Adv diet. Anticipate DC tomorrow. Objective: Vital Signs Temp Pulse Resp BP Pulse Ox 36.9 C 87 18 152/87 H 95 11/24/17 11:46 11/24/17 11:46 11/24/17 11:46 11/24/17 11:46 11/24/17 11:46 Laboratory Results 11/24/17 04:00 11/24/17 04:00 11/23/17 11/24/17 11/25/17 05:59 05:59 05:59 Intake Total 1935 Output Total 1400 200 Balance 535 -200 PT 14.2 SEC (12.0-15.0) 11/23/17 05:45 INR 1.08 (0.83-1.16) 11/23/17 05:45
[2017-11-24] MEDS: LORazepam 2 MG/ML INJ IVP SCH ×2 (11:27→22:14)
[2017-11-24] MEDS ORDERED: D5W NS W/ 20 KCl/L 1,000 ML IV SCH (14:15)
--- NOTE | 2017-11-24 15:20 | ASMTCMCOM ---
CM Note CM Note Notes: Patient plan of care reviewed . Patient admitted via ED with SBO. Normally lives independently in [place]. HX o multiple bowel surgeries. NG tube clamped Small bowell follow through pending. CM to follow for needs. Plan: TBD Date Signed: 11/24/2017 03:19 PM Electronically Signed By:Jeannine Mcmanus RN
--- NOTE | 2017-11-25 08:15 | HOSPPROG ---
Hospitalist Progress Note Assessment/Plan: #SBO #Acute abdominal pain #AHRF: chronic bibasilar infiltrates, neg procalcitonin #Crohn's: prior sigmoid colectomy #Anxiety with chronic BZ dependency #Chronic BISWAS #Mild pyuria Subjective: having BMs, no N//V Objective: Vital Signs Temp Pulse Resp BP Pulse Ox 36.8 C 83 18 163/103 H 95 11/25/17 04:00 11/25/17 04:00 11/25/17 04:00 11/25/17 04:00 11/25/17 04:00 Laboratory Results 11/24/17 04:00 11/24/17 04:00 11/24/17 11/25/17 11/26/17 05:59 05:59 05:59 Intake Total 1935 2451 Output Total 1400 550 Balance 535 1901 PT 14.2 SEC (12.0-15.0) 11/23/17 05:45 INR 1.08 (0.83-1.16) 11/23/17 05:45 - Physical Exam Constitutional: no apparent distress Eyes: PERRL Ears, Nose, Mouth, Throat: moist mucous membranes Cardiovascular: regular rate and rhythym Respiratory: no respiratory distress Gastrointestinal: normoactive bowel sounds, No tenderness Skin: warm Musculoskeletal: full muscle strength Neurologic: AAOx3, CN II-XII Intact Psychiatric: interacting appropriately ICD10 Worksheet Patient Problems: Problems Problem Status Onset SBO (small bowel obstruction) Acute Abdominal pain Acute Abdominal pain Acute Bladder wall thickening Acute Chest discomfort Acute Chronic pain Acute Feeding tube obstruction Acute Hypokalemia Acute Hypokalemia due to loss of potassium Acute Ileitis Acute Leukocytosis Acute Narcotic dependency, continuous Acute Rectal bleeding Acute Chronic constipation Chronic
--- NOTE | 2017-11-25 08:25 | SOAPPROG ---
SOAP Progress Note Assessment/Plan: Assessment/Plan: Doing well. Gastrografin challenge and abdominal x-rays reviewed. Partial small bowel obstruction improved. Recommend she try advancing her diet. If she is tolerating regular diet well, okay for discharge today from a surgical standpoint. Patient's care plan discussed with Dr. Smith. 11/25/17 08:36 Subjective: No overnight concerns. NGT removed yesterday evening. Still having mild mid abdominal pain, but improved since yesterday. Has been tolerating fluids well. Has not tried regular diet, but has an appetite this morning. Having BMs and flatus. No urinary complaints. She expresses she would like to go home soon. Objective: Vital Signs Temp Pulse Resp BP Pulse Ox 36.8 C 83 18 163/103 H 95 11/25/17 04:00 11/25/17 04:00 11/25/17 04:00 11/25/17 04:00 11/25/17 04:00 Laboratory Results 11/24/17 04:00 11/24/17 04:00 11/24/17 11/25/17 11/26/17 05:59 05:59 05:59 Intake Total 1935 2451 Output Total 1400 550 Balance 535 1901 PT 14.2 SEC (12.0-15.0) 11/23/17 05:45 INR 1.08 (0.83-1.16) 11/23/17 05:45 Physical Exam: Gen: alert & oriented x3, appears comfortable HEENT: anicteric skin: normal Heart: RRR Lungs: bibasilar crackles, otherwise good air entry abdomen: soft, improving distension, mild periumbilical abdominal pain. No guarding or rebound tenderness. Extremities: no edema ICD10 Worksheet Patient Problems: Problems Problem Status Onset SBO (small bowel obstruction) Acute Abdominal pain Acute Abdominal pain Acute Bladder wall thickening Acute Chest discomfort Acute Chronic pain Acute Feeding tube obstruction Acute Hypokalemia Acute Hypokalemia due to loss of potassium Acute Ileitis Acute Leukocytosis Acute Narcotic dependency, continuous Acute Rectal bleeding Acute Chronic constipation Chronic
[2017-11-25] MEDS ORDERED: oxyCODONE IR 5 MG TAB PO PRN (08:51)
[2017-11-25] MEDS: PANTOPRAZOLE SODIUM 40 MG VIAL IVP SCH (09:26)
[2017-11-25] MEDS: FLUTICASONE NASAL 120 SPRAYS/16 GM MDI EACHNARE SCH (09:27)
[2017-11-25] MEDS: AZELASTINE NASAL MDI EACHNARE SCH (09:27)
[2017-11-25] MEDS: LORazepam 2 MG/ML INJ IVP SCH (11:34)
[2017-11-25 11:54] VITALS: BP 141/89
--- NOTE | 2017-11-25 14:03 | ASDISCHSUM ---
Discharge Information Plan Status:Home with No Needs Medically Cleared to Leave:11/25/2017 Discharge Date:11/25/2017 CM D/C Disposition:Home, Routine, Self-Care ADT D/C Disposition:Home, Routine, Self-Care Projected Discharge Date:11/25/2017 Transportation at D/C:Family Discharge Delay Reason: Follow-Up Date:11/25/2017 Discharge Slot: Final Diagnosis: Placement Information Patient Contact Information Contact Name:WAYNE Relationship: Address:[address] City:[place] Alternate Phone: [facility]/Zip Code:[place] [address] Email: Financial Information Financial Class:HMO and PPO Plans Primary Plan Desc:[facility] PPO POS Primary Plan Number:[id number] Secondary Plan Desc:MEDICARE INPATIENT Secondary Plan Number:[id number] Assessment Information LACE LACE Length of stay for Answers: 2 days current admission Acuity / Level of Answers: Yes Care: Did the patient have an inpatient admission? Comorbidities - select Answers: Opioid dependence all that apply / Chronic pain Other Notes: Crohn's disease # of Emergency department Answers: 1-2 visits in the last 6 months Social determinants Answers: Mental health diagnosis (anxiety, depression, pers onality disorders, etc.) Score: 14 Date Signed: 11/25/2017 02:02 PM Electronically Signed By:Jeannine Mcmanus RN [facility] CM Progress Note CM Note CM Note Notes: Patient plan of care reviewed . Patient admitted via ED with SBO. Normally lives independently in [place]. HX o multiple bowel surgeries. NG tube clamped Small bowell follow through pending. CM to follow for needs. Plan: TBD Date Signed: 11/24/2017 03:19 PM Electronically Signed By:Jeannine Mcmanus RN Intervention Information Intervention Type:*Incorrect Registration Date of Service:11/23/2017 11:12 AM Patient Type:Inpatient Staff Member:ARLEN Mathis, Lainey Hours: Discipline: Severity: Comment:
--- NOTE | 2017-11-25 14:09 | ASMTCMCOM ---
CM Note CM Note Notes: Patient's plan of care discussed earlier today in interdisciplinary rounds. She has resolving SBO and was tolerating clear liquids. The physician had agreed to discharge if patient able to tolerate solid foods and she has so now medically cleared for discharge to home with family. Up independently in room. No needs identified. CM available should other needs arise. Plan: Home independently Date Signed: 11/25/2017 02:08 PM Electronically Signed By:Jeannine Mcmanus RN
--- NOTE | 2017-11-25 14:11 | GDS ---
DISCHARGE DIAGNOSES: 1. Partial small bowel obstruction. 2. Urinary tract infection. 3. Leukocytosis. 4. History of Crohn disease, status post sigmoid colectomy. 5. Trigeminal neuralgia. 6. Chronic headaches. 7. Chronic abdominal pain with opioid dependency. 8. Anxiety with chronic benzodiazepine dependency. 9. Hyperparathyroidism. CONSULTATIONS: Surgery. PROCEDURES: None. HISTORY OF PRESENT ILLNESS: A 62-year-old female with a history of Crohn's, status post sigmoid colectomy in 2014, presented to the ER with abdominal pain, nausea, and vomiting starting the day prior to admission. She described crampy abdominal pain. She took a Fleet enema, fell asleep, and woke up with wet, watery stool. She had nonbloody emesis. She is not currently being treated for her Crohn's. She complained of headache which is chronic. In the ED, CT showed a small bowel obstruction at mid jejunum. NG tube was placed. Her surgeon, Dr. Smith, was notified. HOSPITAL COURSE BY PROBLEM: 1. Partial small bowel obstruction: Resolved with NG placement. Had small bowel follow-through with resolution of obstruction. Tolerating regular food today without nausea or vomiting and having bowel movements. 2. Crohn's disease. 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 3. Chronic pain with opioid dependency: Counseled her on reduction of these as can contribute to constipation and abdominal pain. 4. Chronic anxiety with benzo dependency. 5. UTI: Mild pyuria and positive nitrite on UA. Gram neg nikki on culture; ID pending. Ciprofloxacin x 3 days. If not sensitive, will call patient with new prescription. DISP: stable for discharge with FOLLOWUP: Dr. Hooper, her PCP. LABS PENDING: Urine culture. /[id number]/MODL MTDD
== END 2017-11-25 15:02 | disposition home or self-care (01) | DRG 389 ==
LOC: EDUNIT# → OBSVTOIN 07:22 → F1N 08:46
PROVIDERS: ADMIT Family Medicine; ATTEND Family Medicine
DX: K56.600 Partial intestinal obstruction, unspecified as to cause (principal); N39.0 Urinary tract infection, site not specified; G89.29 Other chronic pain; F11.20 Opioid dependence, uncomplicated; E21.3 Hyperparathyroidism, unspecified; F41.9 Anxiety disorder, unspecified; R51 Headache; G50.0 Trigeminal neuralgia; Z96.653 Presence of artificial knee joint, bilateral
CPT/HCPCS: 96374; 97165-GO; G8987-GO-CI; G8988-GO-CI; G8989-GO-CI; J1170; J1885; J2060; J2270; J2405; J2550; Q9967

== ENCOUNTER → 2017-12-01 | Outpatient (CLI) | payer OTHER | LOC: FIMAGING 13:02 | PROVIDERS: ATTEND Surgery | DX: R14.0 Abdominal distension (gaseous) (principal); Z87.19 Personal history of other diseases of the digestive system ==

== ENCOUNTER → 2017-12-24 | Outpatient (CLI) | payer OTHER ==
[~2017-12-24] MED LIST changes: -ACETAMINOPHEN 500 MG TAB PO ONE; -BACITRACIN 50,000 UNITS/10 ML SYR IRR ONE; +GADOBUTROL 10 ML VIAL IVP ONE; +GLUCAGON HCL 0.3 MG in SYRINGE 0.3 ML IVP ONE; -POLYMYXIN B SULFATE 500,000 UNIT/10 ML SYR IRR ONE; -PREGABALIN 150 MG CAP PO ONE; -ceFAZolin 2 GM/DEXTROSE 100 ML IV ONE; -ceFAZolin 2 GM/SWFI 2 GM/20 ML SYR IVP ONE
== END ==
LOC: FIMAGING 10:03
PROVIDERS: ATTEND Surgery
DX: Z87.19 Personal history of other diseases of the digestive system (principal)
CPT/HCPCS: A9585; J1610

== ENCOUNTER → 2018-02-13 | Outpatient (CLI) | payer OTHER | LOC: FIMAGING 12:12 | PROVIDERS: ATTEND Family Medicine | DX: N64.4 Mastodynia (principal); Z98.82 Breast implant status ==

== ENCOUNTER 2018-03-05 15:29 | Emergency (ER) | payer OTHER ==
--- NOTE | 2018-03-05 15:54 | EDPHY ---
H & P Time Seen by Provider: 03/05/18 15:50 HPI/ROS: CHIEF COMPLAINT: Abdominal pain vomiting and diarrhea HISTORY OF PRESENT ILLNESS: 62-year-old with a history of chronic abdominal pain and bowel obstruction and sigmoid colectomy presents with abdominal pain and right-sided swelling since of last week. She said she noticed that the right side of her abdomen become distended and bulging when she standing up. She has increasing pain on the right side radiating to her back and flank but without with dysuria or hematuria. She has had decreased oral intake for 4 days because she is"scared to eat"but has been using MiraLax on Friday and then magnesium citrate today which is resulting in multiple episodes of watery diarrhea. She has nausea. She feels like when she tries to eat her pain gets worse. REVIEW OF SYSTEMS: Eye: no change in vision ENT: no sore throat Cardiac: no chest pain or syncope Pulmonary: no cough or SOB Abdomen: HPI Musculoskeletal: Myalgias Skin: no rash Neuro: no headache Constitutional: no fever : no urinary symptoms A comprehensive 10 point review of systems is otherwise negative aside from elements mentioned in the history of present illness. PAST MEDICAL HISTORY: Discharge summary dated 11/25/2017 personally reviewed. Includes partial small-bowel obstruction, UTI, Crohn's disease post sigmoid colectomy, crit trigeminal neuralgia, chronic headaches, chronic abdominal pain with opioid dependency, anxiety with chronic benzodiazepine dependency, hyperparathyroidism. Social history: Dr. Azul Cottrell and Dr. Quinn Hooper, PCP ; surgeon, Dr. Smith General Appearance: Alert and conversant, cooperative. Eyes: No scleral icterus. ENT, Mouth: Dry mucous membranes. Respiratory: Normal respiratory effort, breath sounds equal, lungs are clear to auscultation. Cardiovascular: Regular rate and rhythm. Gastrointestinal: Abdomen is soft and non tender. When she stands up there is a slight soft bulge in the right mid abdomen lateral to the umbilicus which is 6 -8 cm in diameter. Not rigid or firm. Neurological: Alert, face symmetric, normal motor and sensory in extremities. Skin: Warm and dry, no rashes. Musculoskeletal: No peripheral edema. Psychiatric: Not agitated. Emergency Department course/MDM: The patient presents clinically with a rectus sheath or lateral abdominal hernia , clinically is dehydrated. Plan for IV fluids, i-STAT to check creatinine, CT scan abdomen and pelvis discussed and consented. 1830: per [place] CT shows no evidence of hernia or bowel obstruction, she does have some splenic lesions with lymph nodes possible lymphoma. No other acute abnormalities. 1845: Discussed results, patient feels better, drinking oral fluids, stable for discharge. She would like to go home which I think is reasonable. Warned about lymph node follow-up. Smoking Status: Never smoked Constitutional: Initial Vital Signs Temperature (C) 36.9 C 03/05/18 15:36 Heart Rate 96 03/05/18 15:36 Respiratory Rate 16 03/05/18 15:36 Blood Pressure 158/118 H 03/05/18 15:36 O2 Sat (%) 96 03/05/18 15:36 O2 Delivery Mode Room Air O2 (L/minute) 2 Allergies/Adverse Reactions: fentanyl Allergy (Verified 03/05/18 15:34) Other-Enter Comments ketorolac [From Toradol] Allergy (Verified 03/05/18 15:34) Other-Enter Comments pregabalin [From Lyrica] Allergy (Verified 03/05/18 15:34) Swelling/neck,face,throat Home Medications: Medication Instructions Recorded Azelastine HCl 2 sprays EACHNARE BID 01/14/17 Cetirizine HCl/Pseudoephedrine 1 each PO BID 01/14/17 [Zyrtec-D Tablet] Fluoxetine HCl [Prozac 40 mg] 40 mg PO DAILY 01/14/17 Fluticasone Nasal [Flonase Nasal 1 spray EACHNARE BID 01/14/17 [place]] Gabapentin [Neurontin] 1,200 - 1,800 mg PO HS 01/14/17 Potassium Chloride [Klor-Con 10] 10 meq PO BID 01/14/17 Ranitidine HCl [Zantac] 150 mg PO BID 01/14/17 SUMAtriptan [Imitrex Sc Injection] 6 mg SQ DAILY PRN 01/14/17 Sennosides/Docusate Sodium 1 each PO DAILY PRN 01/14/17 [Senna-S Tablet] Simethicone [Gas Relief] 80 mg PO PRN PRN 01/14/17 Temazepam [Restoril 15 MG (*)] 15 mg PO HS 01/14/17 Tizanidine HCl [Zanaflex] 4 mg PO HS 01/14/17 Topiramate [Topamax] 3 - 4 cap PO HS 01/14/17 Valacyclovir HCl [Valtrex] 1,000 mg PO DAILY 01/14/17 Tapentadol HCl [Nucynta] 100 mg PO TID PRN 07/22/17 Lansoprazole [Prevacid] 30 mg PO BID 11/23/17 Promethazine HCl [Phenergan 12.5mg 12.5 mg PO BID PRN 11/23/17 tab] Topiramate [TOPIRAMATE] 3 cap PO DAILY 11/23/17 clonazePAM [klonoPIN (*)] 1 mg PO BID 11/23/17 oxyCODONE HCL [Oxycontin] 10 mg PO TID 11/23/17 Medical Decision Making - Diagnostics Imaging Results: Imaging Impressions Abdomen CT 03/05/18 16:30 Impression: 1. Interval increase in size and number of hypodense lesions within the spleen. In conjunction with retroperitoneal and inguinal adenopathy, this is suspicious for underlying lymphomatous process. Other malignancy or infection is also possible. 2. Small airways disease in the lung bases with a 9.8 mm right lower lobe nodule which appears similar and likely represents nodular scarring. Findings and recommendations discussed with ANGE RAMÍREZ at 1830 hour, 2017. Imaging: Discussed imaging studies w/ practicing dermatologist Radiologist Differential Diagnosis: Differential considered including but not limited to hernia, diverticulitis, bowel obstruction, appendicitis Consult/Admit Bed Type: [facility] re: CT scan will followup up 1919 - Data Points Laboratory Results: Laboratory Results 03/05/18 16:20 03/05/18 16:20 03/05/18 03/05/18 03/05/18 16:21 16:20 16:20 WBC 6.29 10^3/uL 10^3/uL (3.80-9.50) RBC 4.86 10^6/uL 10^6/uL (4.18-5.33) Hgb 12.5 g/dL L g/dL (12.6-16.3) POC Hgb 13.6 gm/dL gm/dL (12.6-16.3) Hct 39.5 % % (38.0-47.0) POC Hct 40 % % (38-47) MCV 81.3 fL L fL (81.5-99.8) MCH 25.7 pg L pg (27.9-34.1) MCHC 31.6 g/dL L g/dL (32.4-36.7) RDW 16.4 % H % (11.5-15.2) Plt Count 307 10^3/uL 10^3/uL (150-400) MPV 10.4 fL fL (8.7-11.7) Neut % (Auto) 64.3 % % (39.3-74.2) Lymph % (Auto) 18.9 % % (15.0-45.0) [place] % (Auto) 11.6 % % (4.5-13.0) Eos % (Auto) 3.7 % % (0.6-7.6) Baso % (Auto) 1.0 % % (0.3-1.7) Nucleat RBC Rel Count 0.0 % % (0.0-0.2) Absolute Neuts (auto) 4.05 10^3/uL 10^3/uL (1.70-6.50) Absolute Lymphs (auto) 1.19 10^3/uL 10^3/uL (1.00-3.00) Absolute Monos (auto) 0.73 10^3/uL 10^3/uL (0.30-0.80) Absolute Eos (auto) 0.23 10^3/uL 10^3/uL (0.03-0.40) Absolute Basos (auto) 0.06 10^3/uL 10^3/uL (0.02-0.10) Absolute Nucleated RBC 0.00 10^3/uL 10^3/uL (0-0.01) Immature Gran % 0.5 % % (0.0-1.1) Immature Gran # 0.03 10^3/uL 10^3/uL (0.00-0.10) POC Sodium 142 mEq/L mEq/L (135-145) Sodium 139 mEq/L mEq/L (135-145) POC Potassium 3.6 mEq/L mEq/L (3.3-5.0) Potassium 4.0 mEq/L mEq/L (3.5-5.2) POC Chloride 106 mEq/L mEq/L (97-110) Chloride 107 mEq/L mEq/L (97-110) Carbon Dioxide 23 mEq/l mEq/l (22-31) Anion Gap 9 mEq/L mEq/L (6-14) POC BUN 18 mg/dL mg/dL (7-23) BUN 19 mg/dL mg/dL (7-23) Creatinine 0.8 mg/dL mg/dL (0.6-1.0) POC Creatinine 0.7 mg/dL mg/dL (0.6-1.0) Estimated GFR > 60 Glucose 95 mg/dL mg/dL (70-100) POC Glucose 95 mg/dL mg/dL (70-100) Calcium 9.2 mg/dL mg/dL (8.5-10.4) Total Bilirubin 0.2 mg/dL mg/dL (0.1-1.4) Conjugated Bilirubin 0.2 mg/dL mg/dL (0.0-0.5) Unconjugated Bilirubin 0.0 mg/dL mg/dL (0.0-1.1) AST 25 IU/L IU/L (14-46) ALT 24 IU/L IU/L (9-52) Alkaline Phosphatase 90 IU/L IU/L (38-126) Total Protein 7.0 g/dL g/dL (6.3-8.2) Albumin 4.0 g/dL g/dL (3.5-5.0) Lipase 231 IU/L IU/L (23-300) Medications Given: Discontinued Medications Sodium Chloride (Ns) 1,000 mls @ 0 mls/hr IV EDNOW ONE; Wide Open PRN Reason: Protocol Stop: 03/05/18 16:08 Last Admin: 03/05/18 16:19 Dose: 1,000 mls Ondansetron HCl (Zofran) 4 mg IVP EDNOW ONE Stop: 03/05/18 16:08 Last Admin: 03/05/18 16:20 Dose: 4 mg Point of Care Test Results: Chemistry 03/05/18 16:21 POC Sodium 142 mEq/L mEq/L (135-145) POC Potassium 3.6 mEq/L mEq/L (3.3-5.0) POC Chloride 106 mEq/L mEq/L (97-110) POC BUN 18 mg/dL mg/dL (7-23) POC Creatinine 0.7 mg/dL mg/dL (0.6-1.0) POC Glucose 95 mg/dL mg/dL (70-100) ISTAT H&H 03/05/18 16:21 POC Hgb 13.6 gm/dL gm/dL (12.6-16.3) POC Hct 40 % % (38-47) Departure - Departure Disposition: Home, Routine, Self-Care Clinical Impression: Abdominal pain Qualifiers: Abdominal location: generalized Qualified Code(s): R10.84 - Generalized abdominal pain Condition: Good Instructions: Acute Abdominal Pain (ED) Additional Instructions: Your CT scan showed additional lymph nodes which need follow-up at your doctor in the next month. No evidence of hernia or bowel obstruction. Referrals: Azul Cottrell MD [Primary Care Provider] - As per Instructions
[2018-03-05] MEDS ORDERED: NS 1,000 ML IV ONE (16:07)
[2018-03-05] MEDS ORDERED: ONDANSETRON 4 MG/2 ML VIAL IVP ONE (16:07)
[2018-03-05 16:29] LABS: PLATELET COUNT 307 10^3/uL (150-400)
[2018-03-05] MEDS ORDERED: IOPAMIDOL (ISOVUE-300) 100 ML BTL ONE (16:41)
[2018-03-05 17:32] VITALS: BP 146/95
== END 2018-03-05 19:01 | disposition home or self-care (01) ==
DX: R10.84 Generalized abdominal pain (principal); G89.29 Other chronic pain; E86.9 Volume depletion, unspecified; R11.2 Nausea with vomiting, unspecified; R19.7 Diarrhea, unspecified; D73.9 Disease of spleen, unspecified; R91.1 Solitary pulmonary nodule
CPT/HCPCS: 82435-PO; 82565-PO; 82947-PO; 84132-PO; 84295-PO; 84520-PO; 85014-PO; 96374; J2405; Q9967